=== PATIENT | male | born 1985 | race Caucasian/White ===

== ENCOUNTER 2017-08-10 23:38 | Inpatient (IN) ==
--- NOTE | 2017-08-11 00:13 | Emergency Department Report ---
Abdominal Pain HPI - General Chief Complaint: Abdominal Pain Stated Complaint: abd cramping Time Seen by Provider: 08/10/17 23:42 Source: patient, family, RN notes reviewed, old records reviewed Mode of arrival: ambulatory Limitations: no limitations - History of Present Illness HPI narrative: 31yo man presents to the ER for evaluation of abdominal pain. Pt has been recently dx'ed with colorectal CA. Had his first round of chemo on Fri (5 days ago). He took some miralax on (4 days ago) and had severe pain shortly after. Has cont to have colicky, diffuse, abdominal pain for the last 4 days. Presented today, because he just couldn't take it anymore. MD complaint: abdominal pain Onset (ago): day(s) (4) Consistency: colicky Location: diffuse Severity: severe Severity scale (1-10): 8 Quality: cramping, aching, sharp Radiation: none Migration to: no migration Relieving factors: bowel movement Exacerbating factors: eating, movement Associated symptoms: nausea - Related Data Previous Rx's Medication Instructions Recorded Hydrocodone/APAP 5/325 [[place] 2 tab PO Q4HR PRN #35 tab 08/04/17 5/325] Levofloxacin [Levaquin] 500 mg PO HS #5 tab 08/04/17 Allergies Allergy/AdvReac Type Severity Reaction Status Date / Time No Known Allergies Allergy Verified 08/10/17 23:55 Review of Systems All systems: reviewed and negative except as stated Gastrointestinal: Reports: as per HPI, abdominal pain, nausea, diarrhea. Denies : vomiting, constipation, hematemesis, melena, hematochezia [facility] Patient Stated Medical History Sleep Apnea No Other GI Yes: RECTAL BLEEDING,CONSTIPATION,COLON CA Other Yes: recently infrequent urination Anemia Yes Clinic Medical History (Last Updated 07/24/17 @ 12:20 by Terri Tucker APRN) Colorectal cancer (Acute Medical ~07/2017) Surgical History: -colonoscopy 07/21/2017 Dr. Jones, colorectal cancer, near obstructing. Family History: Family History (Last Updated 07/24/17 @ 12:24 by Terri Tucker APRN) Father Diabetes Mother Diabetes Maternal Grandfather Esophageal cancer Cancer of lip Parkinsons disease Paternal Grandfather Congestive heart failure (CHF) - Social History Smoking status: Never smoker second hand exposure: No Substance use type: does not use Alcohol intake frequency: does not drink Does patient use chewing tobacco?: No Physical Exam - Limitations Limitations: no limitations - General General appearance: alert - Normal Exams: Head:: Normocephalic without trauma Eyes:: Pupils are PERRLA w/ EOMI, No scleral icterus, irritation, or foreign bodies noted ENMT:: No facial trauma, nasal exudates, pharyngeal erythema, or exudates are noted Neck:: Full range of motion, without adenopathy Lymphatic:: No lymphadenopathy Musculoskeletal:: No tenderness, or deformity noted Integumentary:: No rashes, hives, or bruising noted Neurological:: Patient is alert, and oriented Psychiatric:: Patient exhibits, appropriate attention - Chest Chest inspection: Present: normal inspection, symmetric chest wall rise. Absent : tenderness, rash - Respiratory Respiratory exam: Present: normal lung sounds bilaterally. Absent: respiratory distress, wheezes, prolonged expiratory phase - Cardiovascular Cardiovascular exam: Present: regular rate, normal rhythm, normal heart sounds, +S1, +S2. Absent: systolic murmur, diastolic murmur, +S3, +S4 - Abdominal Exam Abdominal exam: Present: soft, distention, tenderness, normal bowel sounds. Absent: guarding, rebound, rigidity, heel tap sign, Hyatt's sign, Rovsing's sign, tenderness at McBurney's Point Abdominal tenderness: Present: diffuse, severe Course - Consultations Consultation #1: Hospitalist: Will admit for further evaluation and treatment. Time: 01:26 Vital Signs Temperature 98.9 F 08/10/17 23:44 Pulse Rate 110 H 08/10/17 23:44 Respiratory Rate 22 08/10/17 23:44 Blood Pressure 119/56 08/10/17 23:44 Pulse Oximetry 99 08/10/17 23:44 Temperature 98.9 F 08/10/17 23:44 Pulse Rate 110 H 08/10/17 23:44 Respiratory Rate 22 08/10/17 23:44 Blood Pressure 119/56 08/10/17 23:44 Pulse Oximetry 99 08/10/17 23:44 Abdominal Pain - MDM Narrative Medical decision making narrative: Pt with anemia, tachycardia, and abdominal pain. He is borderline for admission vs d/c to home. Strong concern for failure as outpt; cannot give NSAID for hollow viscous pain 2/2 colorectal CA and ongoing blood loss. Discussed with hospitalist, who will admit for further eval/treatment. - Differential Diagnosis Differential diagnosis: Likely: abdominal pain, constipation, gastroenteritis, small bowel obstruction - Medical Records Attestation: I reviewed the patient's medical records. - Lab Data Attestation: I reviewed the patient's lab results. Result diagrams: 08/11/17 00:49 08/11/17 00:49 - Radiology Data Attestation: I reviewed the patient's radiology results. KUB: Nonobstructing bowel gas pattern. No free air or fluid under the diaphragm. Large amount of air in the colon. CT (21 Jul 2017): IMPRESSION: 1. Large irregular heterogeneous enhancing rectal mass measuring 6.4 x 6.9 cm resulting in significant stricture of the distal colon/rectum. 2. There is mild to moderate fecal retention. 3. Tiny pulmonary nodule within the anterior right upper lobe. Cannot exclude a focal pulmonary metastasis given the findings in the pelvis. 4. Large left adrenal nodule measuring 2.6 cm. The structure could represent an adrenal metastasis versus an adrenal adenoma. Disposition Clinical Impression: Colorectal cancer Abdominal pain Qualifiers: Abdominal location: generalized Qualified Code(s): R10.84 - Generalized abdominal pain Anemia Qualifiers: Anemia type: other cause Other causes of anemia: chronic disease, neoplastic Qualified Code(s): D63.0 - Anemia in neoplastic disease Disposition: 02 To [facility] Acute Care Print Language: Turkish Condition: Improved Prescriptions: No Action Hydrocodone/APAP 5/325 [[place] 5/325] 2 tab PO Q4HR PRN #35 tab PRN Reason: Pain Levofloxacin [Levaquin] 500 mg PO HS #5 tab Referrals: Larry Jones DO [Family Provider] - Time of Disposition: 01:38 - Seen By: physician
[2017-08-11] MEDS ORDERED: NS 1,000 ML IV ONE ×3 (00:15→04:15)
[2017-08-11] MEDS ORDERED: FentaNYL 100 MCG/2 ML INJECTION IVP ONE (00:26)
[2017-08-11] MEDS: SALINE FLUSH 10ml SYRINGE IVF PRN ×5 (00:50→21:31)
[2017-08-11] MEDS ORDERED: D5-1/2NS 1,000 ML IV SCH (02:12)
[2017-08-11] MEDS ORDERED: ONDANSETRON 4 MG/2 ML INJECTION IVP PRN (02:12)
[2017-08-11] MEDS: MORPHINE SULFATE 4mg INJECTION IVP PRN ×7 (02:44→21:32)
--- NOTE | 2017-08-11 03:27 | History & Physical Report ---
History of Present Illness Date: 08/11/17 Chief complaint: abdominal pain HPI: This is a 31 y/o male who was recently diagnosed with rectal carcinoma. He is discovered to have tumor 10 cm from anal verge and extends 28 cm into the distal colon. The patient underwent his first round of chemotherapy this past Friday. He had his infusport placed last week as well. The pateint has been experiencing intermittent fevers low grade for the past at least week. At the time of his cath placement he was placed on Levaquin for a possible UTI. This past he has had increased abdomen cramping with frequent mostly diarrheal stools. He continues with low temperatures and chills. The patient presents tonight because of the increased pain. In the ED the patient had a AAS that did not demonstrate free air. His labs demonstrated an expected hypokalemia and ongoing anemia. (hg down from 8.2 to 7.5). Because of the worsening pain and ongoing anemia it was recommended to admit the pateint for further treatment. The pateint had a PET scan done recently with results pending. Review of Systems Review of systems: no headache, no ear pain, no sore throat, no dysphagia, no neck/jaw pain, no chest pain, infusaport site is not uncomfortable, no cough, no heart palpitations,diffuse abdomen pain, mostly in lower quadrants. continuous diarrhea as noted above. Significant cramping just prior to having a stool. No blood in stool, nausea with anorexia noted, no skin rashes, no focal motor deficit. 12 point ROS was carefully elicited and was otherwise negative except for outlined above. Past Medical History Patient Stated Medical History Sleep Apnea Yes Gastrointestinal Bleeding Yes Other GI Yes: RECTAL BLEEDING,CONSTIPATION,COLON CA Other Yes: recently infrequent urination Anemia Yes Chemotherapy Yes Clinic Medical History (Last Updated 07/24/17 @ 12:20 by Terri Tucker APRN) Colorectal cancer (Acute Medical ~07/2017) Surgical History: -colonoscopy 07/21/2017 Dr. Jones, colorectal cancer, near obstructing. -infusaport placement last week Family History: Family History (Last Updated 07/24/17 @ 12:24 by Terri Tucker APRN) Father Diabetes Mother Diabetes Maternal Grandfather Esophageal cancer Cancer of lip Parkinsons disease Paternal Grandfather Congestive heart failure (CHF) Family History Updates: mother with diabetes. father with diabetes. 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 [place] Current occupational exposures/hazards: Yes (exposed to exhaust fumes) Does patient use chewing tobacco?: No Current residence: Apartment/Private Home Medications Home Medications Medication Instructions Recorded Confirmed Type Hydrocodone/APAP 5/325 [[place] 2 tab PO Q4HR PRN #35 tab 08/04/17 Rx 5/325] Levofloxacin [Levaquin] 500 mg PO HS #5 tab 08/04/17 Rx Allergies Allergy/AdvReac Type Severity Reaction Status Date / Time No Known Allergies Allergy Verified 08/11/17 02:51 Exam Vital Signs: Temperature 98.6 F 08/11/17 02:50 Pulse Rate 108 H 08/11/17 02:50 Respiratory Rate 18 08/11/17 02:50 Blood Pressure 134/66 08/11/17 02:50 Pulse Oximetry 96 08/11/17 02:50 Telemetry Rhythm: Sinus Rhythm, Sinus Tachycardia Height/Weight/BMI: Height 1.88 m Weight 93.5 kg Body Mass Index 26.4 - Constitutional Present: mild distress, well nourished, cooperative - Routine HEENT Exam Head: Present: normocephalic, atraumatic Eye: Present: PERRL, normal accommodation, conjunctivae pink. Absent: scleral injection ENT: Present: mucous membranes dry - Routine Neck Exam Present: supple, full ROM - Routine Chest/Breast/Axilla Exam Comments: infusaport right chest wall - Routine Respiratory Exam Present: CTA bilaterally - Routine Cardiovascular Exam Present: RRR, no murmur - Routine Abdominal Exam Comments: mod obese, bowel sounds present, mild tender to palpation to lower abdomen. no gaurding, no rebound. nursing assisted with exam - Routine Extremities Exam Present: no edema, non tender, full ROM, pulses intact, normal capillary refill - Routine Back/Spine/Pelvis Exam Back/Spine: Present: full ROM. Absent: CVA tenderness - Routine Skin Exam Present: intact, warm, normal turgor - Routine Neurological Exam Present: oriented X3, CN II-XII intact, normal tone, vision grossly intact, hearing grossly intact, normal speech. Absent: motor deficit - Routine Psychiatric Exam Present: normal affect, normal thought process Results - Labs CBC & Chem 7: 08/11/17 00:49 08/11/17 00:49 Labs: results reviewed and will be discussed below AAS reviewed, films are marked all as supine. But review of films would inform at least one looks upright. Have asked ED to have radiology review and modify as indicated. Assessment and Plan (1) Abdominal pain Current visit: Yes Status: Acute (2) Colorectal cancer Current visit: Yes Status: Acute (3) Anemia Current visit: Yes Status: Acute (4) Hypokalemia Current visit: Yes Status: Acute Assessment and Plan: 1. abdomen pain acute POA: patient undergoing chemo. had constipation and started with miralax. It is potential that miralax has made him have increased gastric motility and resulting in increased abd pain as stool transverses his lower sigmoid. Exam is not c/w acute abdomen. AAS would inform no evidence of free air. Hold miralax. IVF, IV pain meds. repeat labs. consider surgical consult if needed. Always a chance perf but unlikely given not sig elevated WBC and benign nature of physical exam 2. Hypokalemia acute POA: due to gi loss. replace, recheck 3. colorectal carcinoma acute POA: recent dx. recent chemo. folowed by oncology. PET scan pending. 4. febrile illness acute not present on admission: recent fever. ? UTI. will repeat urine if not done yet. on levaquin. Not sure indicatd at this time. will check stool for c dif. unlikely at this stage, but with immune suppression and antibitoic therapy could be a risk. Will further start pro biotic. 5. DVT ppx; SCD, lovenox 6. gastric ppx; PPI DVT Prophylaxis: SCD's, Lovenox GI Prophylaxis: Protonix Resuscitation Status: Full Code - Time spent with patient Time with patient PN: 30 minutes - Physician Narrative Physician: Philly Hurley MD Narrative: Date: 08/11/17 Time: 4 Hospital Course Summary Disclaimer: The visit summary below is not to be considered part of the above Progress Note.
[2017-08-11] MEDS: NS with KCL 20 mEq 1,000 ML IV SCH ×4 (03:33→20:57)
[2017-08-11] MEDS: HYDROCODONE/APAP 5mg/325mg TABLET PO PRN ×2 (03:33→21:31)
--- NOTE | 2017-08-11 07:44 | XRay Report ---
Indication: Abd pain PROCEDURE: XR KUB: Encounter: Initial Comparison: July 17, 2017 Findings: The visualized lung bases are clear. The bowel gas pattern is nonobstructive and nonspecific. Gas is seen in nondilated small and large bowel to the level of the rectum. The colon is mildly prominent diffusely. Moderate stool is seen throughout the colon. The bony structures are grossly unremarkable. Impression: Nonobstructive nonspecific bowel gas pattern. .
[2017-08-11] MEDS: ENOXAPARIN 40 MG/0.4 ML INJECTION SQ SCH (08:40)
[2017-08-11] MEDS: PANTOPRAZOLE 40 MG INJECTION IVP SCH ×2 (08:40→20:59)
[2017-08-11] MEDS: ACETAMINOPHEN 325 MG TABLET PO PRN ×2 (12:32→23:12)
[2017-08-11] MEDS: SIMETHICONE 125 MG CAPSULE PO PRN ×2 (12:33→18:44)
--- NOTE | 2017-08-11 16:58 | Internal Med Progress Note ---
Internal Medicine Subjective Patient seen and examined in his room. Family at the bedside. Questions answered. I did review his chart including his admission to the emergency department as well as his first round of chemotherapy last week. He is 31 years old and recently diagnosed with metastatic colon cancer. He is undergoing adjuvant chemotherapy prior to surgical resection. Alexis indicates that he is been having severe abdominal pain with cramping. He indicates that since his chemotherapy he has passed a significant amount of stool. This is an improvement from before. However, he also indicates that he did see blood in his urine for the first time this morning. There is 3+ blood in his urine through the ER. He still was not able to eat very much at all. Exam Vital Signs: Temperature 98.1 F 08/11/17 15:25 Pulse Rate 109 H 08/11/17 15:25 Respiratory Rate 18 08/11/17 15:25 Blood Pressure 133/69 08/11/17 15:25 Pulse Oximetry 96 08/11/17 15:25 Telemetry Rhythm: Sinus Tachycardia Height/Weight/BMI: Height 6 ft 2 in Weight 94.4 kg Body Mass Index 26.4 - Constitutional Present: moderate distress (he appears to be in obvious discomfort), cooperative - Routine HEENT Exam Head: Present: normocephalic, atraumatic Eye: Present: EOMI, PERRL. Absent: conjunctival icterus, scleral injection, conjunctivae pink ENT: Present: mucous membranes dry, oropharynx clear, nares patent - Routine Neck Exam Present: supple. Absent: lymphadenopathy, thyromegaly - Routine Chest/Breast/Axilla Exam Chest wall: Absent: tenderness Breast: Absent: tenderness Axillae: Absent: lymphadenopathy - Routine Respiratory Exam Present: CTA bilaterally. Absent: accessory muscle use, rales, respiratory distress, rhonchi, wheezes - Routine Cardiovascular Exam Present: RRR. Absent: S3, S4 - Routine Abdominal Exam Present: soft, tenderness, rebound, guarding. Absent: normoactive bowel sounds , non distended - Routine Extremities Exam Absent: clubbing, edema - Routine Skin Exam Present: intact, pallor. Absent: cyanosis, erythema, petechiae, urticaria, jaundice - Routine Neurological Exam Present: alert, oriented X3, CN II-XII intact - Routine Psychiatric Exam Present: normal affect, cooperative, good insight, good judgment, anxious. Absent: depressed Internal Medicine Results - Labs CBC & Chem 7: 08/11/17 06:11 08/11/17 06:11 Labs: Short CBC 08/11/17 Range/Units 06:11 WBC 11.8 H (4.5-11.0) T/MM3 Hgb 6.8 L (13.5-17.5) GM/DL Hct 22.9 L (41-53) % Plt Count 425 H (130-400) T/MM3 BMP 08/11/17 06:11 Sodium 137 Potassium 3.5 L Chloride 102 Carbon Dioxide 25 BUN 10.0 Creatinine 0.4 L Glucose 179 H Calcium 7.8 L Liver Function 08/11/17 Range/Units 06:11 Total Bilirubin 0.50 (0.20-1.30) MG/DL AST 26 (17-59) U/L ALT 42 (21-72) U/L Alkaline Phosphatase 170 H (38-126) U/L Albumin 2.7 L (3.5-5.0) g/dL Urine 08/11/17 Range/Units 09:44 Urine Color Yellow (YELLOW) Urine Clarity Clear Urine pH 5.0 (5.0-8.0) Ur Specific [place] >=1.030 H (1.015-1.025) Urine Protein Negative (NEGATIVE) Urine Glucose (UA) Negative (NEGATIVE) Progress Note-A&P - Time Spent With Patient Total time spent is greater than 50% in coordination of care (as documented) at patient's floor/unit and/or counseling patient: 25 - 35 minutes (1) Abdominal pain Status: Acute Assessment and plan: Surgical consultation with Dr. Russell Current Visit: Yes (2) Anemia Status: Acute Assessment and plan: Transfused 2 units packed red blood cells Current Visit: Yes (3) Colorectal cancer Status: Acute Assessment and plan: He has had one round of adjuvant chemotherapy last week Current Visit: Yes (4) Hypokalemia Status: Acute Current Visit: Yes (5) Weight loss, unintentional Status: Acute Current Visit: Yes Hospital Course Summary Disclaimer: The visit summary below is not to be considered part of the above Progress Note.
--- NOTE | 2017-08-11 18:34 | General Surgery Consult Note ---
Consult date: 08/11/17 Attending Physician: Larry Jones DO Reason for consult: abdominal pain PFSH Patient Stated Medical History Sleep Apnea Yes Gastrointestinal Bleeding Yes Other GI Yes: RECTAL BLEEDING,CONSTIPATION,COLON CA Other Yes: recently infrequent urination Anemia Yes Chemotherapy Yes Clinic Medical History (Last Updated 07/24/17 @ 12:20 by Terri Tucker APRN) Colorectal cancer (Acute Medical ~07/2017) Surgical History: -colonoscopy 07/21/2017 Dr. Jones, colorectal cancer, near obstructing. -Power port placement 08/04/2017 Family History: Family History (Last Updated 07/24/17 @ 12:24 by Terri Tucker APRN) Father Diabetes Mother Diabetes Maternal Grandfather Esophageal cancer Cancer of lip Parkinsons disease Paternal Grandfather Congestive heart failure (CHF) Family History Updates: mother with diabetes. father with diabetes. 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[place] Current occupational exposures/hazards: Yes (exposed to exhaust fumes) Does patient use chewing tobacco?: No Current residence: Apartment/Private Home Medications Home Medications Medication Instructions Recorded Confirmed Type Hydrocodone/APAP 5/325 [[place] 2 tab PO Q4HR PRN #35 tab 08/04/17 Rx 5/325] Levofloxacin [Levaquin] 500 mg PO HS #5 tab 08/04/17 Rx Allergies Allergy/AdvReac Type Severity Reaction Status Date / Time No Known Allergies Allergy Verified 08/11/17 02:51 Review of Systems 10-point ROS: negative except for HPI and the following: - General General: Present: fever, chills, unexplained weight loss (over last couple months, colorectal tumor then discovered), other (weakness, fatigue) - Gastrointestinal Gastrointestinal: Present: diarrhea, blood in stools, other (abd pain) - Genitourinary Additional comments: blood in urine - Psychiatric Psychiatric: Present: anxiety (situational) - Vital Signs Last Vital Signs Temp 98.1 F 08/11/17 15:25 Pulse 109 H 08/11/17 15:25 Resp 18 08/11/17 15:25 BP 133/69 08/11/17 15:25 Pulse Ox 96 03/12/18 15:25 - Laboratory Result Diagrams: 08/11/17 17:22 08/11/17 06:11 General Surgery Results - Results Labs: 08/11/17 17:22 08/11/17 06:11 Hospital Course Summary Disclaimer: The visit summary below is not to be considered part of the above Progress Note.
--- NOTE | 2017-08-11 21:44 | Progress Note ---
DATE OF SERVICE 08/11/2017 FINDINGS Mr. Belcher is a 31-year-old gentleman who is known to my surgical practice. I have recently placed a PowerPort catheter within the patient to facilitate his chemotherapy. The patient unfortunately has been found to have a very widely metastatic rectal cancer. Patient informs me that he has undergone one round of chemotherapy. The patient was accompanied by his parents this evening. Parents and patient state that over the course of the weekend he was experiencing a fair amount of pain. Patient described the pain as being throughout his entire abdomen. Pain was intermittent in nature. Patient states that he did have several large liquid stools over the course of the weekend. Mother states that yesterday he was in severe pain and was "lying in the bathtub screaming." Apparently the patient was in a considerable amount of pain. The patient is fairly stoic and does at times downplay his symptoms. Patient states that this evening he is feeling better. He is having less pain. Mother states, however, that any time the patient moves he is complaining of significant pain. As a result of this severe pain he presented to the emergency room and was subsequently admitted for further care. The patient states he has not had any nausea or vomiting in association with this severe diffuse abdominal pain. PAST MEDICAL HISTORY, PAST SURGICAL HISTORY, MEDICATIONS, ALLERGIES, SOCIAL HISTORY, FAMILY HISTORY, REVIEW OF SYSTEMS Performed by my nurse practitioner, Mendel Tucker APRN. PHYSICAL EXAMINATION Mr. Belcher is a 31-year-old gentleman who does not appear to be in acute distress but he does appear to be uncomfortable in nature. VITAL SIGNS: Temperature 98.1. He did have a low-grade fever of 100.9. The patient was tachycardic with a pulse of 109. Respirations 18, blood pressure 133/69, SAO2 96% on room air. HEENT: Normocephalic. Pupils are equally round and react to light and accommodation. CHEST: Clear to auscultation bilaterally. HEART: Regular rate and rhythm. Normal S1 and S2 without gallops, murmurs or clicks. ABDOMEN: Visualization of the abdomen does reveal it to be somewhat distended in nature. Palpation of the abdomen did reveal diffuse tenderness. The patient did have a fair amount of tenderness with palpation in the right mid and right lower quadrant of his abdomen overlying the cecal region. He did have a component of both voluntary and involuntary guarding. There were no thierry peritoneal signs although the patient was quite tender this evening. EXTREMITIES: Without clubbing, cyanosis, or edema. NEURO: Cranial nerves II-XII grossly intact. Patient is without focal motor or sensory deficits. LABORATORY/RADIOGRAPHIC EVALUATION The patient had a CBC earlier today and his white count was 11.8. Hemoglobin is low at 8.3. He does have a left shift with 91% neutrophils. CMP was obtained and he was found to have a slightly low potassium at 3.5. Alkaline phosphatase is elevated at 170. The patient does have significant known liver metastasis. UA is obtained and found to reveal some red blood cells and occult blood. ASSESSMENT 31-year-old young male with misfortune developing widely metastatic rectal cancer. Patient presents with diffuse abdominal pain most likely a result of near colonic obstruction. PLAN The patient did have a KUB upon admission. Dictated report that there was a nonspecific bowel pattern. One however, can see a fair amount of outline of the ascending colon, transverse colon, and descending colon which does in my opinion appear to be dilated down to the rectum. He does have some small bowel dilatation, most likely a result of incompetent ileocecal valve resulting in some dilatation of the small bowel as well. This evening the patient does not have an acute surgical abdomen. I am quite concerned, however, given the patient's degree of abdominal pain. Will repeat lab work tomorrow consisting of CBC. Will follow with serial abdominal examinations. Will repeat KUB and upright and chest x-ray tomorrow to rule out potential pneumoperitoneum. It is my intuition that his cecum is becoming significantly more dilated as a result of this near-obstructing rectal cancer. It was my hope that his cancer would begin to diminish significantly in its size after initiating chemotherapy and the patient would be able to avoid a diverting colostomy. I am concerned, however, with the patient's clinical presentation and radiographic presentation that he may ultimately require a diverting colostomy. Will reassess tomorrow morning and follow closely. [facility]
[2017-08-12] MEDS: NS FLUSH BAG 500ml IV PRN (01:15)
[2017-08-12] MEDS: SALINE FLUSH 10ml SYRINGE IVF PRN ×2 (01:15→06:18)
[2017-08-12] MEDS: NS with KCL 20 mEq 1,000 ML IV SCH ×3 (01:19→16:54)
[2017-08-12] MEDS: MORPHINE SULFATE 4mg INJECTION IVP PRN ×5 (01:20→14:58)
--- NOTE | 2017-08-12 08:47 | XRay Report ---
Indication: abdominal pain rule out obstruction PROCEDURE: PA view of the chest with supine and upright AP views of the abdomen Encounter: Initial Comparison: KUB from the prior day FINDINGS: The lungs are hypoinflated, but clear. There is no abnormal airspace opacity, pleural effusion or pneumothorax identified. The heart size, pulmonary vasculature and mediastinum are within normal limits. Right IJ port catheter. There is no free air on the upright view. New dilatation of small bowel with differential air-fluid levels. Small bowel is dilated up to 5.7 cm in the left abdomen. There is some colonic gas present. IMPRESSION: 1. No acute cardiopulmonary abnormality. 2. Findings of a small bowel obstruction. .
[2017-08-12] MEDS: ENOXAPARIN 40 MG/0.4 ML INJECTION SQ SCH (09:49)
[2017-08-12] MEDS: PANTOPRAZOLE 40 MG INJECTION IVP SCH ×2 (09:49→22:28)
[2017-08-12] MEDS ORDERED: ERTAPENEM 1 G in NS 50 ML IV SCH (11:00)
--- NOTE | 2017-08-12 12:42 | General Surgery Progress Note ---
Subjective Patient reports: still having pain (distended abdomen, tense and sharp pain), bowel movement (small one this am) - Vital Signs Last Vital Signs Temp 99 F 08/12/17 10:35 Pulse 130 H 08/12/17 09:54 Resp 38 H 08/12/17 09:54 BP 135/75 08/12/17 09:54 Pulse Ox 94 08/12/17 09:54 - Laboratory Result Diagrams: 08/12/17 07:48 08/12/17 07:48 - Radiology Radiology KUB/Abd Addendum: Given the patient's history of a large rectal mass the findings on today's study likely represent decompression of the previously dilated colon through an incompetent ileocecal valve into the small bowel. Findings are more likely due to obstruction at the level of the rectal mass rather than a separate small bowel obstruction. - Abnormal Exam Cardiovascular: other (tachycardic) Abdominal: hypoactive bowel sounds, firm, distended, tender, involuntary guarding - Normal Exam General: awake, alert Respiratory: no labored breathing Psychiatric: normal affect (but seems somewhat anxious, understandably) Assessment and Plan (1) Colon obstruction Current Visit: Yes Status: Acute (2) Colorectal cancer Current Visit: Yes Status: Acute Plan: Plan Robotic diverting colostomy later today. Hospital Course Summary Disclaimer: The visit summary below is not to be considered part of the above Progress Note.
--- NOTE | 2017-08-12 14:46 | Progress Note ---
DATE OF SERVICE 08/12/2017 FINDINGS Alexis this morning was seen earlier on rounds. The patient stated that he was "feeling better." He states he was having less discomfort. He states he did pass some small amount of liquidy stools. PHYSICAL EXAM VITAL SIGNS: Temperature 100.4. The patient continues to become more tachycardic with a pulse of 130. He also has increasing tachypnea with a respiratory rate of 38. Blood pressure is stable at 135/75, SAO2 94% on room air. HEENT: Normocephalic. Pupils are equally round and react to light and accommodation. CHEST: Clear to auscultation bilaterally. HEART: Regular rate and rhythm. Normal S1 and S2 without gallops, murmurs or clicks. ABDOMEN: Although Alexis states that he was having less pain he is still quite tender upon palpation. He does have a component of some voluntary guarding. He also has a slight component of some involuntary guarding. Overall, I do believe he is a little less tender than last evening but continues to have fairly significant abdominal pain upon palpation. No thierry peritoneal signs. LABORATORY/RADIOGRAPHIC EVALUATION The patient had a CBC today and his white count is increasing at 16,000. Hemoglobin is overall stable at 10.4. He does have a left shift with 97% neutrophils. BMP was obtained today. Overall, lab is stable. Radiographically, the patient had a KUB and upright. One can see significant small bowel dilatation today. Findings were read as acute small-bowel obstruction. ASSESSMENT 31-year-old gentleman with known metastatic rectal cancer who presents with probable colonic obstruction secondary to a large rectal mass with associated incompetent ileocecal valve, and radiographic appearance of small-bowel obstruction. The patient is with significant abdominal pain, increasing leukocytosis, increasing tachycardia and tachypnea. PLAN Although Alexis did have a very small liquid bowel movement today, clinically he is becoming worse. Radiographically, he is also becoming worse in nature. Although we tried to avoid surgery so that he could initiate chemotherapy I do feel that it would be best in Alexis's current situation to undergo surgical intervention. Would not recommend trying to remove his cancer with significant metastatic disease but would recommend that we proceed with a robotic-assisted laparoscopic creation of an end colostomy and mucous fistula to divert his fecal stream proximal to his obstructing colon cancer. Patient did have a family member present this morning. I did discuss in detail with them what this procedure would entail and its associated risks which included but was not inclusive of bleeding, infection, as well as potential conversion to open procedure. I informed the patient that he does have a life-threatening condition and he is at significant risk given the fact that he has recently underwent chemotherapy and is in my opinion critically ill. Patient and family understood and wished to proceed as stated above. Following the patient's visit this morning I did contact his oncologist, Dr. Collins, and discussed the case with him as well. Dr. Collins has recommended that we give the patient Neupogen postoperatively. I have also contacted the patient's PCP with the above findings and recommendations. DAVE
--- NOTE | 2017-08-12 15:43 | Anesthesia Preoperative Report ---
Anesthesia Preoperative Record - Date and Time Date: 08/12/17 Preoperative Diagnosis: Abdomen pain Proposed Procedure: Robotic Diverting Colostomy NPO Since Date: 08/11/17 NPO Since Time: 23:55 Allergies/Adverse Reactions: Allergies Allergy/AdvReac Type Severity Reaction Status Date / Time No Known Allergies Allergy Verified 08/11/17 02:51 - Vital Signs Vital Signs: Temperature 98.3 F 08/12/17 15:01 Pulse Rate 122 H 08/12/17 15:01 Respiratory Rate 40 H 08/12/17 15:01 Blood Pressure 137/81 08/12/17 15:01 Pulse Oximetry 95 08/12/17 15:01 Height and Weight: Height 6 ft 2 in Weight 99.7 kg Body Mass Index 26.4 - Medications Inpatient Medications: Current Medications Acetaminophen (Tylenol) 325 - 650 mg PO Q5H PRN PRN Reason: Discomfort Last Admin: 08/11/17 23:12 Dose: 650 mg Hydrocodone Bitart/Acetaminophen ([place] 5/325) 1 tab PO Q6H PRN PRN Reason: Pain Last Admin: 08/11/17 21:31 Dose: 1 tab Enoxaparin Sodium (Lovenox) 40 mg SQ DAILY [facility] Last Admin: 08/12/17 09:49 Dose: 40 mg Potassium Chloride/Sodium Chloride (Ns With Kcl 20 Meq) 1,000 mls @ 150 mls/hr IV .Q6H40M [facility] Last Infusion: 08/12/17 11:32 Dose: 150 mls/hr Ertapenem 1 g/ Sodium Chloride 50 mls @ 100 mls/hr IV DAILY [facility] Last Infusion: 08/12/17 11:32 Dose: Infused Morphine Sulfate (Morphine Sulfate Inj) 2 - 4 mg IVP Q2H PRN PRN Reason: Pain Last Admin: 08/12/17 14:58 Dose: 4 mg Ondansetron HCl (Zofran) 4 mg IVP Q6H PRN PRN Reason: Nausea &/or vomiting Last Admin: 08/12/17 13:51 Dose: 4 mg Pantoprazole Sodium (Protonix Iv) 40 mg IVP BID NEPTALI Last Admin: 08/12/17 09:49 Dose: 40 mg Simethicone (Phazyme) 125 mg PO Q6HR PRN PRN Reason: Gas Last Admin: 08/11/17 18:44 Dose: 125 mg Sodium Chloride (Iv Flush) 10 - 80 ml IVF PRN PRN PRN Reason: Flushing Last Admin: 08/12/17 06:18 Dose: 20 ml Sodium Chloride (Normal Saline) 500 ml IV PRN PRN Last Admin: 08/12/17 01:15 Dose: 500 ml Home Medications: Home Medications Medication Instructions Recorded Confirmed Type Hydrocodone/APAP 5/325 [[place] 2 tab PO Q4HR PRN #35 tab 08/04/17 Rx 5/325] Levofloxacin [Levaquin] 500 mg PO HS #5 tab 08/04/17 Rx Is Patient on Beta [place]?: No - Medical History Respiratory: DENIES: Asthma, Bronchitis, Chronic Obstructive Pulmonary Disease (COPD), Dyspnea, Orthopnea, Pulmonary Embolism, Pneumonia, Upper Respiratory Infection, Pulmonary Edema, Sleep Apnea, Tuberculosis, Other Cardiovascular: DENIES: Abnormal EKG, Angina, Arrhythmia, Congestive Heart Failure, Coronary Artery Disease, Heart Murmur, Hypertension, Hypotension, High Cholesterol, Myocardial Infarction, Rheumatic Fever, Valvular Heart Disease, Other Gastrointestional: Reports: Other (RECTAL BLEEDING,CONSTIPATION,COLON CA) DENIES: Obstructive Bowel, Hepatitis, Cirrhosis, Nausea or Vomiting Present, Gastroesophageal Reflux Disease, Gastrointestinal Bleeding, Hiatal Hernia, Ulcer , Morbid Obesity Neuro/Musculoskeletal: Reports: Back Problems (lower back pain), Headaches, Muscle Weakness Denies: HX.MS.OSAR, Cerebrovascular Accident, Depression, Loss of Consciousness, Neuromuscular Disorder, Paralysis, Paresthesia, Syncope, Seizures , Other Renal/Endocrine: DENIES: Diabetes Mellitus Type 1, Diabetes Mellitus Type 2, Renal Failure, Dialysis, Thyroid Disease, Weight Loss, Weight Gain, Other Other History: Reports: Blood Transfusions, Chemotherapy, Cancer (COLON) DENIES: Anesthesia Reactions, Now, Hemophilia, Malignant Hyperthermia, Sickle Cell Disease, Other - Surgical History GI Surgery/Treatments: Reports: Colonoscopy Anesthesia Reactions: None Hx Family Anesthesia Reaction: No History of Motion Sickness: No - Social History Smoking Status: Never smoker Hx Chewing Tobacco Use: No Second Hand Exposure: No Substance Use Type: does not use Alcohol Intake Frequency: does not drink - Pertinent Findings Laboratory: CBC and BMP 08/12/17 07:48 08/12/17 07:48 BMP 08/12/17 07:48 Sodium 135 Potassium 4.2 D Chloride 102 Carbon Dioxide 22 BUN 10.0 Creatinine 0.5 L Glucose 214 H Calcium 8.2 L Liver Function 08/12/17 Range/Units 07:48 Albumin 2.6 L (3.5-5.0) g/dL Urine 08/12/17 Range/Units 09:12 Urine Color [place] (YELLOW) Urine Clarity Sl cloudy Urine pH 5.0 (5.0-8.0) Ur Specific [place] >=1.030 H (1.015-1.025) Urine Protein 1+ A (NEGATIVE) Urine Glucose (UA) Negative (NEGATIVE) EKG: Sinus Tachycardia - Physical Exam Respiratory Exam: Present: lungs clear, bilateral breath sounds equal Cardiovascular Exam: Present: regular rate and rhythm, no murmur - Airway Assessment Mallampati Score: I TMD: 3 Fingerbreadths Neck Extension: good Overall Assessment: no airway concerns - ASA ASA Score: 3 - Plan Anesthesia: General Inhalation Gases - Discussion Discussion: Discussed risks/options/alternatives of anesthesia and questions answered. Patient consents. Nursing pain assessment noted. Present for Discussion: parent Attestation Statement: Prior to the delivery of any anesthetic medication, I examined the patient, developed the plan, obtained the patient's consent and discussed the risk and benefits of the procedure with the patient/guardian. - Additional Information Seen by Anesthesia: Yes
[2017-08-12] MEDS ORDERED: FentaNYL 250 MCG/5 ML INJECTION ONE (15:54)
[2017-08-12] MEDS ORDERED: LIDOCAINE 2% (100mg/5mL) 5ml PF SDV ONE (15:55)
[2017-08-12] MEDS ORDERED: PROPOFOL 20 ML ONE (15:55)
[2017-08-12] MEDS ORDERED: ROCURONIUM 50 MG/5 ML INJECTION IVP ONE ×2 (15:55→18:34)
[2017-08-12] MEDS ORDERED: KETAMINE 500 MG/10 ML INJECTION ONE (15:55)
[2017-08-12] MEDS ORDERED: ESMOLOL 100 MG/10 ML INJECTION ONE (15:56)
[2017-08-12] MEDS ORDERED: MIDAZOLAM 2mg/2ml INJECTION IVP ONE (16:02)
[2017-08-12] MEDS: NS 1,000 ML IV SCH ×2 (16:06→18:56)
[2017-08-12] MEDS: LR 1,000 ML IV SCH ×2 (16:35→17:47)
[2017-08-12] MEDS ORDERED: BUPIVACAINE 0.25%/EPI 1:200,000 30ml SDV ONE (16:44)
[2017-08-12] MEDS ORDERED: LIDOCAINE VISCOUS 2% ORAL LIQUID 15ml ONE (17:24)
[2017-08-12] MEDS ORDERED: BUPIVACAINE 0.25%/EPI 1:200,000 30ml SDV SQ ONE (18:29)
[2017-08-12] MEDS ORDERED: SALINE FLUSH 10ml SYRINGE ONE (18:48)
[2017-08-12] MEDS ORDERED: SUGAMMADEX 200mg/2ml INJECTION IVP ONE (19:01)
[2017-08-12] MEDS ORDERED: HYDROMORPHONE 2 MG/ML INJECTION IVP PRN (19:48)
[2017-08-12] MEDS ORDERED: ONDANSETRON 4 MG/2 ML INJECTION IVP PRN (19:48)
--- NOTE | 2017-08-12 19:51 | Anesthesia Postoperative Note ---
- Date and Time Date: 08/12/17 Time: 19:49 - Status Patient Participated in Evaluation: Patient Participated in Person Vital Signs: Temperature 98.4 F 08/12/17 15:45 Pulse Rate 124 H 08/12/17 15:46 Respiratory Rate 12 08/12/17 15:45 Blood Pressure 135/63 08/12/17 15:45 Pulse Oximetry 94 08/12/17 15:45 Respiratory Function: Airway Patent, Regular Respirations Cardiovascular Function: Regular Pulse EKG: Sinus Tachycardia Mental Status: Alert and Oriented Pain Intensity: 0 Hydration: IV Infusing Complications During Recover: None Apparent Post Anesthesia Care Notes: Pt in PACU. Denies pain. Febrile 100.7. Dr Russell aware. Probable cause from abcess vs liver mets. - Follow-Up Instructions Instructions: Per Surgeon
--- NOTE | 2017-08-12 19:58 | General Surgery Procedure Note ---
Date of Procedure: 08/12/17 Surgeon: Yvonne Fabric Worker: Mendel Mallory APRN Postoperative Diagnosis: Obstructing rectal cancer with peritonitis Procedure: Exploratory laparotomy with end colostomy and mucous fistula. Estimated Blood Loss: See Anesthesia Record. Pathology: none sent
[2017-08-12] MEDS ORDERED: FLUCONAZOLE PB 200 MG/100 ML BAG IV SCH (20:28)
[2017-08-12] MEDS ORDERED: NS 1,000 ML IV SCH (20:28)
[2017-08-12] MEDS: PIPERACILLIN/TAZOBACTAM 3.375 GM in NS 100 ML IV SCH (21:22)
[2017-08-12] MEDS: MORPHINE PCA 30 MG/30 ML SYRINGE IV PRN (22:12)
[2017-08-12] MEDS: HYDROMORPHONE 2 MG/ML INJECTION IVP PRN (22:27)
[2017-08-12] MEDS: TBO-FILGRASTIM 480mcg/0.8ml INJECTION SQ SCH (22:28)
[2017-08-13] MEDS: D5-1/2NS with KCL 20mEq 1,000 ML IV SCH ×4 (00:10→20:00)
[2017-08-13] MEDS: PIPERACILLIN/TAZOBACTAM 3.375 GM in NS 100 ML IV SCH (02:22)
[2017-08-13] MEDS: HYDROMORPHONE 2 MG/ML INJECTION IVP PRN ×3 (03:41→12:07)
[2017-08-13] MEDS ORDERED: FLUCONAZOLE PB 200 MG/100 ML BAG IV SCH (08:00)
[2017-08-13] MEDS: PIPERACILLIN/TAZOBACTAM 3.375 GM in NS 50 ML IV SCH ×3 (08:07→20:49)
[2017-08-13] MEDS: PANTOPRAZOLE 40 MG INJECTION IVP SCH ×2 (08:07→20:49)
[2017-08-13] MEDS: ENOXAPARIN 40 MG/0.4 ML INJECTION SQ SCH (08:08)
--- NOTE | 2017-08-13 08:56 | Infectious Disease Consult ---
Infectious Disease Consult Date of Consultation: 08/13/17 Requesting Physician: Gabriel Russell Reason for Consultation: sepsis History of Present Illness: Mr. Belcher is a 31 y/o man with a h/o recently diagnosed rectal cancer and was started on chemo last Friday. He's been having some fevers and chills for several days. He was started on levaquin last week for presumed UTI. He denies any dysuria to me but had decreased urine output. He's been having loose waterry stools. He started having abdominal pain last that became quite severe. He finally presented to the ER on 08/11 and was admitted. He had fever up to 102. He has had tachycardia since admission, and he's had leukocytosis. Abdominal X-rays showed dilated colon, but no evidence of free air. His mother is present and helps provide the history. He didn't appear to have an acute abdomen on admission, however, by yesterday, Dr. Russell recommended taking him to surgery for colostomy placement. The patient's mother reports that in surgery, it was discovered that the patient had perforated his colon and had peritonitis. A wound culture was obtained labeled peritoneum, which has NOS on stain but there is early growth on the culture. He was started on Zosyn and fluconazole last night. I've been asked to help with antibiotics. He reports that currently, his pain is fairly well-controlled. Medications Home Medications Medication Instructions Recorded Confirmed Type Hydrocodone/APAP 5/325 [[employer] 2 tab PO Q4HR PRN #35 tab 08/04/17 Rx 5/325] Levofloxacin [Levaquin] 500 mg PO HS #5 tab 08/04/17 Rx Allergies Allergy/AdvReac Type Severity Reaction Status Date / Time No Known Allergies Allergy Verified 08/11/17 02:51 [facility] Patient Stated Medical History Cerebrovascular Accident No Paralysis No Seizures No Syncope No Angina No Cardiac Arrhythmia No Congestive Heart Failure No Coronary Artery Disease No Heart Murmur No Hypertension No Hypotension No Myocardial Infarction No Rheumatic Fever No Valvular Heart Disease No Other Cardiology No Asthma No Bronchitis No Chronic Obstructive Pulmonary No Disease (COPD) Pneumonia No Pulmonary Edema No Pulmonary Embolism No Sleep Apnea No Tuberculosis No Other Respiratory No Diabetes Mellitus Type 1 No Diabetes Mellitus Type 2 No Cirrhosis No Gastroesophageal Reflux No Disease Gastrointestinal Bleeding No Hepatitis No Hiatal Hernia No Obstructive Bowel No Ulcer No Other GI Yes: RECTAL BLEEDING,CONSTIPATION,COLON CA Other Yes: recently infrequent urination Anemia Yes Osteoarthritis No Other Musculoskeletal No Anesthesia Reactions No Blood Transfusions Yes Chemotherapy Yes Malignant Hyperthermia No Other No Depression No Now No Clinic Medical History (Last Updated 07/24/17 @ 12:20 by Terri Tucker APRN) Colorectal cancer (Acute Medical ~07/2017) Surgical History: -colonoscopy 07/21/2017 Dr. Jones, colorectal cancer, near obstructing. -Power port placement 08/04/2017. Exploratory laparotomy with end colostomy and mucous fistula 08/12/17 Family History: Family History (Last Updated 07/24/17 @ 12:24 by Terri Tucker APRN) Father Diabetes Mother Diabetes Maternal Grandfather Esophageal cancer Cancer of lip Parkinsons disease Paternal Grandfather Congestive heart failure (CHF) Family History Updates: mother with diabetes. father with diabetes. 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 Absent: cough - Gastrointestinal Gastrointestinal: Present: abdominal pain, diarrhea. Absent: nausea, vomiting - Genitourinary Genitourinary: Absent: dysuria - Neurological Neurological: Absent: headache(s) Exam Vital Signs: Temperature 97.8 F 08/12/17 22:45 Pulse Rate 132 H 08/13/17 05:30 Respiratory Rate 33 H 08/13/17 06:51 Blood Pressure 134/76 08/13/17 05:30 Pulse Oximetry 98 08/13/17 05:30 Height/Weight/BMI: Height 1.88 m Weight 99.7 kg Body Mass Index 26.4 - Constitutional Present: no acute distress, well nourished, well developed, thin - Routine HEENT Exam Head: Present: normocephalic, atraumatic Eye: Present: EOMI, PERRL ENT: Present: mucous membranes moist, oropharynx clear, dentition normal Comments: NGT in place - Routine Neck Exam Present: supple - Routine Respiratory Exam Present: CTA bilaterally. Absent: accessory muscle use - Routine Cardiovascular Exam Present: RRR - Routine Abdominal Exam Present: soft, non distended, wound (midline abdominal, covered with dressing), drain (2 JPs on R, 1 MANUELITO on L), ostomy Comments: no bowel sounds noted - Routine Extremities Exam Absent: cyanosis, clubbing, edema, joint swelling - Routine Skin Exam Present: intact. Absent: rash Comments: R anterior port accessed, no redness - Routine Neurological Exam Present: alert, oriented X3, CN II-XII intact. Absent: motor deficit - Routine Psychiatric Exam Present: normal affect, normal thought process Results - Labs CBC & Chem 7: 08/13/17 04:17 08/13/17 04:17 Microbiology Results: Microbiology 08/12/17 17:18 Peritoneum Surgical Culture - Preliminary Early growth Impression: Sepsis secondary to GI source Rectal cancer causing obstruction and perforation with peritonitis, s/p exploratory laparatomy, creation of end colostomy 08/12/17, wound culture pending. Metastatic rectal cancer, s/p chemotherapy 08/06/17 Leukocytosis Fever Tachycardia Anemia, microcytic Recommendation: Recommend continuing with Zosyn and fluconazole. I'd recommend dosing the fluconazole at 400mg daily. Await culture results. Recommend treating him for 14 days with antibiotics. I would anticipate that he could probably be changed to oral antibiotics towards the end of this therapy. [place] [facility] [place] but will be available by phone with questions.
[2017-08-13] MEDS ORDERED: FLUCONAZOLE PB 200 MG/100 ML BAG IV ONE (09:15)
--- NOTE | 2017-08-13 10:27 | Operative Note ---
DATE OF SERVICE 08/12/2017 SURGEON Gabriel Russell MD ASSISTANTS MD Mendel Leal APRN PREOPERATIVE DIAGNOSIS Bowel obstruction. POSTOPERATIVE DIAGNOSIS Perforated adenocarcinoma involving rectosigmoid junction with development of multiple intraabdominal abscesses and associated small bowel obstruction. PROCEDURE Diagnostic laparoscopy with conversion to laparotomy, adhesiolysis, drainage of intraabdominal abscesses, creation of end colostomy and mucous fistula. ANESTHESIA General endotracheal. EBL AND FLUIDS Please see chart. BRIEF HISTORY/INDICATIONS Mr. Belcher is a 31-year-old young male who has had the misfortune of developing a very aggressive rectal carcinoma. He recently underwent a colonoscopy by his primary care physician and was found to have a near obstructing lesion involving the rectosigmoid junction. Metastatic workup was undertaken and, unfortunately, the patient was found to have multiple liver metastasis. As a result of the above indications it was recommended the patient undergo chemotherapy and not surgical intervention. The patient has undergone one round of chemotherapy. The patient, over the last several days, has developed severe abdominal pain. He was admitted to the hospital and seen by myself last evening. He was found to have a moderate of tenderness throughout his entire abdomen upon examination. He did not have any radiographic evidence for perforated viscus. Radiographically, radiology did not dictate there was evidence for bowel obstruction although one could see an outline of his colon throughout proximal to his known malignancy. It was my intuition the patient was likely suffering a colonic obstruction as a result of his known near- obstructing lesion. Repeat films were obtained today and he was found to have evidence for small bowel obstruction. Clinically, he appeared worse as well as from a laboratory standpoint. It was recommended to the patient therefore that he undergo surgical intervention. It was my initial thought that perhaps the patient had a complete obstruction of his colon with an incompetent ileocecal valve resulting in the appearance of a small bowel obstruction. As a result of the above indications it was recommended the patient undergo surgical intervention. For completeness please refer to notes included in the patient's chart. FINDINGS Upon laparoscopy one could see a white exudate covering a good portion of the bowel. There was purulent material also noted within the peritoneal cavity. I elected therefore to proceed with an open laparotomy. Upon exploration the patient was found to have numerous large hepatic metastasis. There was hepatic metastasis involving the left lobe of the liver that was likely 6-7 cm in diameter. Small bowel was massively dilated. No obvious transition zone was noted within the small bowel. The bowel itself was quite edematous. One could feel a few implants within the mesentery as the small bowel was being run consistent with that of metastatic disease. Small bowel contents were advanced back towards the stomach and the small bowel was decompressed. Gallbladder was without noted abnormalities. The colon was palpated throughout and was without palpable abnormalities. As one approached into the pelvis, a large abscess cavity was encountered. The purulent material was quite malodorous in nature. Anaerobic and aerobic bacterial cultures were obtained. Upon palpation deep within the pelvis, one could feel a large fixated mass consistent with his known malignancy. Near the rectosigmoid junction one could see what appeared to be that of a small perforation where the malignancy had a eroded through the bowel wall, resulting in perforation and abscess formation. This large mass was unable to be resected distally. It was elected to proceed with creation of a diverting end colostomy and mucous fistula. This was completed without incident. DESCRIPTION OF PROCEDURE After informed consent was obtained, the patient was brought to the operative suite and placed on the table in a supine fashion. The abdomen was then prepped and draped in sterile fashion. Formal time-out was then completed. 0.25% Marcaine with epinephrine was injected just beneath the left costal margin. A 4-5 mm incision was then made through the area of analgesia within the left subcostal region. Veress needle was then introduced into the incision into the peritoneal cavity. Pneumoperitoneum was established to a patient pressure of 15 mmHg utilizing carbon dioxide. Next, additional 0.25% Marcaine with epinephrine was injected cephalad and laterally to the umbilicus. A 2 cm incision was then made overlying the area of analgesia. A 12-mm camera port was then advanced through the abdominal wall directly into the peritoneal cavity. A da Clint laparoscope was placed within the port as the port was being advanced through the fascial layers and into the peritoneal cavity. One could see the port as it entered into the abdominal cavity. Trocar portion of the camera port was then removed. Laparoscope was then inserted into the camera port. Abdominal cavity was explored via the laparoscope. As stated above, one could see exudative-like material covering a good portion of the omentum, small bowel and colon. There appeared to be thierry purulent material within the peritoneal cavity. Therefore it was elected to proceed with a formal laparotomy. Port and camera were removed. A standard midline incision was then made from just above the pubic symphysis up to and into the epigastric region. Underlying subcutaneous tissues, fascia and peritoneum was then opened to the extent of the incision. There was a considerable amount of ascitic transudate/purulent material within the peritoneal cavity. This was then suctioned. A formal exploration was then undertaken. The small bowel was significantly dilated proximally. Anesthesia had placed an OG, but the gastric tube was not able to be palpated within the stomach. I had Anesthesia remove the OG and replace it with an NG tube. One could then feel the gastric tube within the gastric lumen. The stomach was also initially found be quite dilated but was subsequently aspirated and decompressed. Stomach was without visible or palpable abnormalities. Liver was palpated and, as stated above, there were several large hepatic metastases present. Largest hepatic metastasis appeared to be involving the left lobe of the liver and was perhaps on the order of about 7-8 cm in greatest diameter. Next, the small bowel which was significantly dilated was decompressed by advancing its contents in a retrograde fashion back into the stomach. Eventually the entire small bowel was able to be decompressed in this fashion. As stated above, the small bowel was run from the ligament of Treitz to the terminal ileum. There were a few mesenteric metastatic implants that one could see along the small bowel mesentery. No palpable masses, however, were noted within the small bowel lumen. Initially the cecum was located more within the right upper quadrant. The terminal ileum was somewhat adhered along the right lateral abdominal wall. These adhesions were taken down and the cecum was returned back to its more normal location in the right lower quadrant. Cecum was carefully inspected. There was some white exudate-like material overlying the cecum. There was, however, no evidence for necrosis of the cecum, nor evidence for a cecal perforation. The colon was then carefully ran and visualized and palpated from the cecal region up the ascending colon, transverse:, splenic flexure region and down the descending colon region. No visible or palpable abnormalities were noted. The omentum was without evidence for omental caking/implants. Attention was then focused into the pelvic region. The sigmoid colon had "looped upon itself" and was somewhat fixated into the pelvic region. Adhesions were present and began to be taken down. One then entered a large abscess cavity that was quite malodorous in nature. Purulent material was suctioned and anaerobic and aerobic cultures were obtained. The sigmoid colon was able be freed up from the pelvis and brought forth up into the incision. A hand was then placed within the pelvic region. One could appreciate a hard fixated mass involving the rectosigmoid junction extending below the peritoneal reflection. Irrigation was performed and attention was focused down towards the rectosigmoid junction. Out laterally one could see what appeared to be that of a small perforation at the rectosigmoid junction where the tumor had eroded completely through the bowel wall. This area was irrigated. Next, after a complete formal abdominal exam exploration had been undertaken, attention was then focused towards creation of a diverting colostomy and mucous fistula. The tumor itself was not resectable within the pelvis and the patient , as stated above, had widely metastatic disease. A point perhaps 15-20 cm above the rectosigmoid junction was obtained upon the mid to distal descending colon region. A GI-75 stapler was placed across this location and fired. The white line of Toldt along the left pericolic gutter was incised and the left colon was reflected medially. The proximal transected end of the staple line could be brought forth down into the pelvis without undue tension. The resection line was formed at this location in the remote chance that the patient would have a good outcome and could perhaps undergo resection of his tumor at a later date with creation of a coloproctostomy. The pericolonic fat surrounding both staple lines was then clear. The mesentery between these two staple lines was then divided towards its origin about 4-5 cm. Dissection was * *_not?_ carried down to the root of the mesentery. There was enough length that both limbs could be brought forth up through the anterior abdominal wall without difficulty. Next, attention was then focused towards creation of a colostomy and mucous fistula. Two Reta clamps were placed upon the fascia on the left side of the incision and retracted medially. An [facility] clamp was then placed about midway between the left anterior iliac spine and the umbilicus. [facility] clamp was then placed at this location and retracted anteriorly. A 3-4 cm circular incision was then made just beneath the Reta clamps. The deep subcutaneous tissues were then divided with electrocautery down to the underlying enveloping fascia. A small cruciate incision was then made upon the anterior rectus sheath. One could see the longitudinal fibers of the rectus muscle. A hemostat was then advanced through the rectal muscle in its midportion and gently spread. Hemostat was then advanced through the posterior rectus sheath, peritoneum and into the peritoneal cavity. Two to three fingers were then placed through the fascial opening. Both the proximal and distal staple line from the descending colon was then grasped and was able to be brought up through the incision. Additional more length was obtained upon the end colostomy/proximal staple line. This portion of the bowel was brought forth perhaps 6-7 cm beyond the skin level. The mucous fistula/distal staple line was brought forth past the skin level by a centimeter or two. Both limbs of bowel were then secured to the peritoneum by placing a few single interrupted sutures of 3-0 Vicryl adjacent to the colostomy site. This was obtained by obtaining a seromuscular purchase of the colon followed by a purchase of the peritoneum and posterior rectus sheath. Next, I elected to place three 19-Ukrainian drains. Two drains were allowed to exit through the right lateral abdominal wall. One drain was allowed to exit through the left upper quadrant. Drains were placed within the left upper quadrant, left lower quadrant as well as within the pelvis, the right lower quadrant and subhepatic space. Instrument, sponge and needle counts were performed and found to be correct. Attention was directed towards closure. The fascia was closed in a running fashion with #1 PDS. Skin was then reapproximated with brit about every 2 cm. Given the gross contamination, I elected not to perform a skintight closure. Before the skin was closed, Betadine solution was placed upon the skin incision and subcutaneous tissue. _?_ strips were cut and placed between each staple to "wick" the midline incision. Next, attention was directed towards performing the colostomy and mucous fistula. An [facility] clamp was placed upon the proximal portion of the descending colon. [facility] clamp was perhaps placed 4-5 cm proximal to the staple line. Colon was then transected proximal to the [facility] clamp. The colon was then imbricated to the skin edge at the colostomy site within the left lower quadrant at the 12 o'clock , 9 o'clock and 3 o'clock position. This was performed by first obtaining a full thickness of the transected end of the colon followed by a seromuscular purchase of the colon 3-4 cm proximal, followed by a small subcuticular purchase of the skin. Next, the distal staple line was then brought forth up into the colostomy site and a portion of the staple line was transected to create the mucous fistula. One could see into the colonic lumen. The cephalad aspect of the opening of the mucous fistula was imbricated to the 6 o'clock position of the colostomy by placing several interrupted sutures of 3-0 Vicryl in a full-thickness fashion through the proximal end colostomy followed by a full-thickness purchase of the mucous fistula portion of the distal staple line. Perhaps 2 cm of the proximal and distal colon was imbricated at the 6 o' clock position. Next, the caudad portion of the mucous fistula was imbricated to the skin edge by placing several simple interrupted sutures. First, a full purchase of the transected end of the mucous fistula was obtained followed by a small subcuticular purchase of the adjacent colon. This resulted in the creation of the mucous fistula along the caudad aspect of the end colostomy. The end colostomy portion was further imbricated by placing a few additional single interrupted sutures of 3-0 Vicryl. First, a full thickness of the of the end colostomy portion of colon was obtained followed by additional subcuticular purchase of the adjacent skin. This resulted in creation of an everted end colostomy in conjunction with a mucous fistula along the caudad aspect of the colostomy as stated above. Next, a colostomy appliance was then placed overlying the newly created end colostomy and mucous fistula. The patient was subsequently wakened from his anesthetic and sent back to the ICU once deemed in stable condition. DAVE
--- NOTE | 2017-08-13 17:07 | General Surgery Progress Note ---
Subjective Narrative: Patient was seen early this morning, states he actually was not having much pain while at rest but did notice an increase in pain with activity and ambulation. Most of the time he is declining pain medication. He states he's "dying of thirst" and would love to have some tea. He does have an NG tube in and sips of tea would just come out the NG other should not be a problem with this. Been tachycardic in the 130s and 140s. Urine has cleared up compared to yesterday. - Vital Signs Last Vital Signs Temp 96.9 F 08/13/17 15:00 Pulse 113 H 08/13/17 16:00 Resp 35 H 08/13/17 15:00 BP 125/66 08/13/17 15:00 Pulse Ox 99 08/13/17 15:00 - Laboratory Result Diagrams: 08/13/17 04:17 08/13/17 04:17 Laboratory Tests 08/12/17 08/13/17 07:48 04:17 INR 1.59 H 1.53 H - Microbiogy Microbiology 08/12/17 17:18 Peritoneum Gram Stain - Final 08/12/17 17:18 Peritoneum Surgical Culture - Preliminary Early growth - Normal Exam General: awake, alert, oriented Cardiovascular: regular rate (tachycardic) Respiratory: clear bilaterally, no labored breathing Abdominal: soft, appropriately tender, incision(s) (dressings intact and not removed today. There are Betadine soaked "partha" between the brit.) Assessment and Plan (1) Perforated sigmoid colon Current Visit: Yes Status: Acute (2) Status post colostomy Current Visit: Yes Status: Acute (3) Colon obstruction Current Visit: Yes Status: Acute (4) Colorectal cancer Current Visit: Yes Status: Acute Plan: Encouraged him to utilize a RIB BENDER and supplemental pain medication on an as- needed basis. He may have sips of tea, keep NG to low intermittent suction. Once there is flatus in the colostomy bag will start advancing diet. Appreciate input from Dr. Marcum. Continue daily labs. Neupogen daily per Dr. Collins [facility] Course Summary Disclaimer: The visit summary below is not to be considered part of the above Progress Note.
--- NOTE | 2017-08-13 17:12 | Internal Med Progress Note ---
Internal Medicine Subjective Patient was seen and examined in the ICU. Family at the bedside. Surgery notes, radiographs, and labs all reviewed. Questions answered. The patient underwent diverting colostomy yesterday and appears to be improved. He still has significant abdominal pain especially with movement. Urine output is good, blood pressure is good, and his heart rate is coming down. He has an NG tube in place and states it is very thirsty. Exam Vital Signs: Temperature 96.9 F 08/13/17 15:00 Pulse Rate 113 H 08/13/17 16:00 Respiratory Rate 35 H 08/13/17 15:00 Blood Pressure 125/66 08/13/17 15:00 Pulse Oximetry 99 08/13/17 15:00 Telemetry Rhythm: Sinus Tachycardia Height/Weight/BMI: Height 6 ft 2 in Weight 92.5 kg Body Mass Index 26.4 - Constitutional Present: mild distress, cooperative - Routine HEENT Exam Head: Present: normocephalic, atraumatic Eye: Present: EOMI. Absent: conjunctival icterus, scleral injection, conjunctivae pink ENT: Present: mucous membranes dry, nares patent - Routine Neck Exam Present: supple. Absent: JVD, lymphadenopathy, thyromegaly - Routine Chest/Breast/Axilla Exam Chest wall: Absent: tenderness - Routine Respiratory Exam Present: CTA bilaterally. Absent: accessory muscle use, dyspnea, rales, rhonchi , wheezes - Routine Cardiovascular Exam Present: no murmur, tachycardia. Absent: S3, S4 - Routine Abdominal Exam Present: tenderness, guarding Comments: Faint bowel sounds are present - Routine Extremities Exam Absent: cyanosis, clubbing, edema - Routine Skin Exam Present: intact, pallor. Absent: cyanosis, mottling, petechiae, urticaria, jaundice - Routine Neurological Exam Present: alert, oriented X3, CN II-XII intact - Routine Psychiatric Exam Present: normal affect, normal thought process, cooperative, good insight, good judgment. Absent: depressed, anxious Internal Medicine Results - Labs CBC & Chem 7: 08/13/17 04:17 08/13/17 04:17 Labs: Short CBC 08/13/17 Range/Units 04:17 WBC 13.2 H (4.5-11.0) T/MM3 Hgb 10.1 L (13.5-17.5) GM/DL Hct 32.9 L (41-53) % Plt Count 602 H (130-400) T/MM3 [facility] 08/13/17 04:17 Sodium 137 Potassium 4.2 Chloride 105 Carbon Dioxide 22 BUN 17.0 D Creatinine 0.8 D Glucose 238 H Calcium 7.5 L D Progress Note-A&P - Time Spent With Patient Total time spent is greater than 50% in coordination of care (as documented) at patient's floor/unit and/or counseling patient: greater than 35 minutes (1) Abdominal pain Status: Acute Assessment and plan: Surgical consultation with Dr. Russell Current Visit: Yes (2) Anemia Status: Acute Assessment and plan: Transfused 2 units packed red blood cells Current Visit: Yes (3) Colorectal cancer Status: Acute Assessment and plan: He has had one round of adjuvant chemotherapy last week Current Visit: Yes (4) Hypokalemia Status: Acute Current Visit: Yes (5) Weight loss, unintentional Status: Acute Current Visit: Yes - Assessment and Plan Alexis has metastatic colon cancer resulting in a bowel obstruction secondary to noncompliant ileocecal valve. He underwent diverting colostomy yesterday. We will probably need to start IV nutrition tomorrow so I will check his prealbumin in the morning. His pain control appears to be fairly good. He was also started on Neupogen due to receiving his first round of chemotherapy last week. Hospital Course Summary Disclaimer: The visit summary below is not to be considered part of the above Progress Note.
[2017-08-13] MEDS: MORPHINE PCA 30 MG/30 ML SYRINGE IV PRN (18:40)
--- NOTE | 2017-08-13 19:49 | Progress Note ---
DATE OF SERVICE 08/13/2017 FINDINGS Alexis was seen this evening on rounds. He states that overall he is feeling better than yesterday. His abdominal pain has "changed." He is not having pain when he lays still. He is not having severe "gas pains" as he had been previously experiencing. PHYSICAL EXAM VITAL SIGNS: Patient has been tachycardic as expected with his degree of peritoneal contamination. He remains tachypneic in nature. He is normotensive and afebrile. For completeness please refer to EMR if needed. CHEST: Clear to auscultation bilaterally. HEART: Regular rate and rhythm. Normal S1 and S2 without gallops, murmurs or clicks. ABDOMEN: There is some minimal serosanguineous fluid within the ostomy bag. Colostomy within the left lower quadrant is pink and viable in its appearance. There is serosanguineous drainage noted within his Erik-Conrad drains. Palpation of the abdomen reveals some incisional tenderness but is without thierry peritoneal signs or evidence for involuntary guarding. LABORATORY/RADIOGRAPHIC EVALUATION The patient's white count today was 13,000. Hemoglobin is 10.0. He does have a left shift with 19% bands. BMP was obtained and reviewed and found to be essentially within normal limits. Glucose was slightly elevated at 238. I have reviewed Infectious Disease note from earlier today. I appreciate their input. ASSESSMENT 31-year-old gentleman with metastatic perforated rectal cancer, status post exploratory laparotomy with drainage of intraabdominal abscess and creation of end colostomy with mucous fistula. Patient currently this evening doing better than expected. PLAN Continue with current care. Will continue to follow the patient closely. I still feel that overall the patient's prognosis is still guarded given his immunosuppression and degree of peritoneal contamination in conjunction with his significant metastatic disease. [facility]ITALAlysha
[2017-08-13] MEDS ORDERED: FLUCONAZOLE PB 100 MG/50 ML BAG IV SCH (20:00)
[2017-08-13] MEDS: TBO-FILGRASTIM 480mcg/0.8ml INJECTION SQ SCH (20:50)
[2017-08-14] MEDS: PIPERACILLIN/TAZOBACTAM 3.375 GM in NS 50 ML IV SCH ×4 (02:34→20:48)
[2017-08-14] MEDS: D5-1/2NS with KCL 20mEq 1,000 ML IV SCH ×3 (03:11→09:34)
--- NOTE | 2017-08-14 07:26 | General Surgery Progress Note ---
Subjective Narrative: He is more awake and recognizing more pain today, stating rolling over and activity are very painful. He was nauseated yesterday and it was discovered that the NG suction was not working, once the suction started working the nausea went away. Denies chest pain, SOA, although Oxygen at 1L by NC. No flatus in colostomy bag. Lifted the dressings a little, they are not bloody, MANUELITO's with nearly clear serosanguineous fluid. Mother states she thinks he has become pale in color since yesterday. Tachycardia down to low 100's now. - Vital Signs Last Vital Signs Temp 98.7 F 08/13/17 20:00 Pulse 115 H 08/14/17 04:00 Resp 26 H 08/14/17 05:50 BP 118/58 08/14/17 03:00 Pulse Ox 94 08/14/17 03:31 - Laboratory Result Diagrams: 08/14/17 04:05 08/14/17 04:05 - Microbiogy Microbiology 08/12/17 17:18 Peritoneum Gram Stain - Final 08/12/17 17:18 Peritoneum Surgical Culture - Preliminary Early growth - Abnormal Exam General: mild distress (2nd to abdominal pain) - Normal Exam General: awake, alert, oriented Cardiovascular: regular rate Respiratory: clear bilaterally, no labored breathing Abdominal: BS normo active x4 (very minimal BS), soft, appropriately tender Psychiatric: normal affect Assessment and Plan (1) Perforated sigmoid colon Current Visit: Yes Status: Acute (2) Status post colostomy Current Visit: Yes Status: Acute (3) Acute blood loss anemia Current Visit: Yes Status: Acute (4) Colon obstruction Current Visit: Yes Status: Acute (5) Colorectal cancer Current Visit: Yes Status: Acute Plan: His is in sims pain today, encouraged more MEDICAL SURGERY NURSE and to ask nursing for additional pain med. HGB dropped to 7.4 (10.1 yesterday) MANUELITO's with serous fluid, dressings without noticeable blood, no bleeding from colostomy or rectum. Transfuse 1 unit and check HGB. Tachycardia from yesterday (130's) now down and running 103-109. Gradual decline in SBP from yesterday 140's to SBP this am 110's. WBC up today 16.9 (13.2 yesterday,) his is on Neupogen, continue Zoxyn and Diflucan per Dr. Marcum. Hospital Course Summary Disclaimer: The visit summary below is not to be considered part of the above Progress Note.
[2017-08-14] MEDS ORDERED: DiphenhydrAMINE 25 MG CAPSULE PO ONE (08:02)
[2017-08-14] MEDS ORDERED: ACETAMINOPHEN 325 MG TABLET PO ONE (08:02)
[2017-08-14] MEDS ORDERED: DIPHENHYDRAMINE 12.5 MG/5 ML ORAL LIQUID PO ONE (09:15)
[2017-08-14] MEDS: ACETAMINOPHEN 650 MG/20.3 ML SOLUTION PO PRN (09:29)
[2017-08-14] MEDS: FLUCONAZOLE PB 400 MG/200 ML BAG IV SCH (09:30)
[2017-08-14] MEDS: ENOXAPARIN 40 MG/0.4 ML INJECTION SQ SCH (09:33)
[2017-08-14] MEDS: PANTOPRAZOLE 40 MG INJECTION IVP SCH ×2 (09:34→20:48)
[2017-08-14] MEDS: SALINE FLUSH 10ml SYRINGE IVF PRN (09:35)
[2017-08-14] MEDS: NS FLUSH BAG 500ml IV PRN (09:36)
[2017-08-14] MEDS ORDERED: TPN - PHARMACY CONSULT MC ONE (13:17)
[2017-08-14] MEDS ORDERED: MULTI TRACE ELEMENTS IV SCH (13:30)
[2017-08-14] MEDS ORDERED: [UNRECOGNIZED DRUG - OTHER] IV SCH (13:30)
[2017-08-14] MEDS ORDERED: MULTI VIT INFUSION IV SCH (13:30)
--- NOTE | 2017-08-14 13:49 | Pharmacy Consult-TPN/PPN ---
Pharmacy Consult-TPN/PPN - Laboratory Information Chemistry Turbidity < 20 (0-20) 08/14/17 04:05 Sodium 134 MEQ/L (134-144) 08/14/17 04:05 Potassium 3.8 MEQ/L (3.6-5) 08/14/17 04:05 Chloride 102 MEQ/L (98-107) 08/14/17 04:05 Carbon Dioxide 26 MEQ/L (22-30) 08/14/17 04:05 Anion Gap 6 MEQ/L (5-15) 08/14/17 04:05 BUN 9.0 MG/DL (9-20) D 08/14/17 04:05 Creatinine 0.6 mg/dL (0.8-1.5) L D 08/14/17 04:05 GFR Calculation 158 08/14/17 04:05 BUN/Creatinine Ratio 15 RATIO (6-26) 08/14/17 04:05 Glucose 143 MG/DL (75-110) H 08/14/17 04:05 Calculated Osmolality 259 MOSM/KG (261-280) L 08/14/17 04:05 Calcium 7.3 MG/DL (8.4-10.2) L 08/14/17 04:05 Phosphorus 1.8 MG/DL (2.5-4.5) L 08/14/17 04:05 Total Bilirubin 0.50 MG/DL (0.20-1.30) 08/11/17 06:11 Icterus Index < 2 (0-7) 08/14/17 04:05 AST 26 U/L (17-59) 08/11/17 06:11 ALT 42 U/L (21-72) 08/11/17 06:11 Alkaline Phosphatase 170 U/L (38-126) H 08/11/17 06:11 Troponin I < 0.012 ng/ml (0-0.12) 08/11/17 00:49 Total Protein 5.9 g/dL (6.3-8.2) L 08/11/17 06:11 Albumin 2.1 g/dL (3.5-5.0) L 08/14/17 04:05 Globulin 3.2 G/DL (2.4-3.6) 08/11/17 06:11 Albumin/Globulin Ratio 0.8 RATIO (1.1-2.2) L 08/11/17 06:11 Prealbumin < 3.0 mg/dL (17.6-36.0) L 08/14/17 04:05 Plasma Lactate 1.8 MMOL/L (0.6-2.2) 08/12/17 07:48 Specimen Hemolysis < 15 (0-25) 08/14/17 04:05 Intake and Output 08/13/17 08/14/17 08/15/17 06:59 06:59 06:59 Intake Total 5318.334 / 5318.334 80399.583 / 61772.583 Output Total 4200 / 4200 92966 / 63285 240 / 240 Balance 1118.334 / 1118.334 -647.417 / -647.417 -240 / -240 Weight 99.7 kg 92.5 kg 95.4 kg Intake: IV 4868.334 / 4868.334 3289.583 / 3289.583 D5-1/2NS with KCL 20mEq 1,000 275 / 275 2889.583 / 2889.583 ml @ 125 mls/hr IV .Q8H [facility] Rx# :[id number] Ertapenem 1 g In Ns 50 ml @ 100 50 / 50 mls/hr IV DAILY [facility] Rx#: [id number] Fluconazole Pb 200 mg In 100 ml 200 / 200 @ 100 mls/hr IV O ONE Rx#: [id number] Lr 1,000 ml @ 50 mls/hr IV . 1141.667 / 1141.667 Q20H [facility] Rx#:[id number] NS with KCL 20 mEq 1,000 ml @ 1367.5 / 1367.5 150 mls/hr IV .Q6H40M [facility] Rx#: [id number] Ns 1,000 ml @ 250 mls/hr IV . 1834.167 / 1834.167 Q4H [facility] Rx#:[id number] Piperacillin/Tazobactam 3.375 200 / 200 gm In Ns 100 ml @ Per Protocol IV Q6H [facility] Rx#:[id number] Piperacillin/Tazobactam 3.375 200 / 200 gm In Ns 50 ml @ 100 mls/hr IV Q6H [facility] Rx#:[id number] Oral 450 / 450 7340 / 7340 Output: Urine Amount (Catheter) 1035 / 1035 1550 / 1550 240 / 240 Urethral 200 / 200 Gastric Drainage 2350 / 2350 9450 / 9450 Left Nare 2350 / 2350 9450 / 9450 Wound Drainage 815 / 815 277 / 277 Abdomen 180 / 180 140 / 140 Lower Abdomen 255 / 255 95 / 95 Right Lower 380 / 380 42 / 42 Other: Urine Appearance Clear Clear Clear Mucous Threads Urethral Cloudy Sediment Urine Color Dark Yellow Dark Yellow [place] Urethral [place] Drain Type Abdomen Bulb [place] Bulb [place] Lower Abdomen Bulb [place] Bulb [place] Right Lower Bulb [place] Bulb [place] # Voids 1 # Bowel Movements 1 # Incontinent Bowel Movements 1 - Consult Information Consult noted by Dr Jones to begin TPN W/lipids for Mr Belcher, who is 31 yo and weighs 95.4kg. Due to nationwide shortage of TPN formulas, we will use a standard PPN formula with 500mls lipids. This will supply 1408 kcal daily. Will add 40meq of KCl to standard formula and continue to monitor. Thank you.
--- NOTE | 2017-08-14 15:00 | Wound Care Progress Note ---
Wound Center Progress Note: Pt seen for wound consultation r/t new colostomy. Seen with Yahaira OLIVER. Pt resting in bed, family at bedside, no complaints of pain. Pt had surgery r/t rectal CA with the creation of a LLQ colostomy. Pt has a 1pc pouching system in place, stoma and peristomal skin not visualized at this time. Pouch has small amount serosanguineous drainage. Educational materials left at bedside r/t colostomy care. Pt had questions regarding pouching systems and how they were applied to abdomen. Education was given regarding: diet, exercise, showering with pouch, gas, odor, different pouching system options, how and where to receive ostomy supplies, how and when to change the pouch/wafer, constipation, diarrhea, what a normal stoma/peristomal skin appearance should be , and possible use of irrigation technique in the future to manage colostomy. Pt states he will review the colostomy material and is willing to have me return for more education Friday and/or Friday.
[2017-08-14] MEDS ORDERED: FAT EMULSION 20% 100 ML BAG IV SCH (16:00)
[2017-08-14] MEDS ORDERED: POTASSIUM PHOSPHATE IV ONE (16:45)
[2017-08-14] MEDS: MORPHINE PCA 30 MG/30 ML SYRINGE IV PRN (16:51)
--- NOTE | 2017-08-14 16:53 | Progress Note ---
DATE OF SERVICE 08/14/2017 FINDINGS Alexis states that he is having less pain today. He states that this morning when they did move him he had some increased pain but this afternoon was feeling significantly better. PHYSICAL EXAM VITAL SIGNS: Afebrile, normotensive. The patient remains slightly tachycardic with a pulse 105. This, however, continues to improve. Normotensive in nature. ABDOMEN: Soft. Minimal incisional tenderness. No evidence for rebound or involuntary guarding. No output noted within colostomy. LABORATORY/RADIOGRAPHIC EVALUATION The patient's hemoglobin has drifted down today as one would somewhat expect. Hemoglobin 7.4. He was given a unit of blood and his hemoglobin is now 8.7. White count is up at 16.9 which likely is a result of his Neupogen injection. He does have 31% bands, again most likely a result of his Neupogen. BMP was obtained found to be without marked abnormalities. ASSESSMENT 31-year-old gentleman with perforated metastatic rectal cancer. Status post exploratory laparotomy with creation of end colostomy and mucous fistula. Patient improving from a clinical standpoint. PLAN Continue with current care. Dr. Jones has ordered hyperalimentation for nutrition. Will otherwise continue with current care. DAVE
[2017-08-14] MEDS: FAT EMULSION 20% 500 ML IV SCH (16:59)
[2017-08-14] MEDS: NS 1,000 ML IV SCH (17:00)
[2017-08-14] MEDS: HYDROMORPHONE 2 MG/ML INJECTION IVP PRN (17:00)
[2017-08-14] MEDS: MULTI-VIT INFUSION 10 ML, MULTI-TRACE ELEMENTS 1 ML, POTASSIUM CHLORIDE INJ 40 MEQ in ... IV SCH (17:03)
--- NOTE | 2017-08-14 17:39 | Pharmacy Consult-TPN/PPN ---
Pharmacy Consult-TPN/PPN - Laboratory Information Chemistry Turbidity < 20 (0-20) 08/14/17 04:05 Sodium 134 MEQ/L (134-144) 08/14/17 04:05 Potassium 3.8 MEQ/L (3.6-5) 08/14/17 04:05 Chloride 102 MEQ/L (98-107) 08/14/17 04:05 Carbon Dioxide 26 MEQ/L (22-30) 08/14/17 04:05 Anion Gap 6 MEQ/L (5-15) 08/14/17 04:05 BUN 9.0 MG/DL (9-20) D 08/14/17 04:05 Creatinine 0.6 mg/dL (0.8-1.5) L D 08/14/17 04:05 GFR Calculation 158 08/14/17 04:05 BUN/Creatinine Ratio 15 RATIO (6-26) 08/14/17 04:05 Glucose 143 MG/DL (75-110) H 08/14/17 04:05 Calculated Osmolality 259 MOSM/KG (261-280) L 08/14/17 04:05 Calcium 7.3 MG/DL (8.4-10.2) L 08/14/17 04:05 Phosphorus 1.8 MG/DL (2.5-4.5) L 08/14/17 04:05 Total Bilirubin 0.50 MG/DL (0.20-1.30) 08/11/17 06:11 Icterus Index < 2 (0-7) 08/14/17 04:05 AST 26 U/L (17-59) 08/11/17 06:11 ALT 42 U/L (21-72) 08/11/17 06:11 Alkaline Phosphatase 170 U/L (38-126) H 08/11/17 06:11 Troponin I < 0.012 ng/ml (0-0.12) 08/11/17 00:49 Total Protein 5.9 g/dL (6.3-8.2) L 08/11/17 06:11 Albumin 2.1 g/dL (3.5-5.0) L 08/14/17 04:05 Globulin 3.2 G/DL (2.4-3.6) 08/11/17 06:11 Albumin/Globulin Ratio 0.8 RATIO (1.1-2.2) L 08/11/17 06:11 Prealbumin < 3.0 mg/dL (17.6-36.0) L 08/14/17 04:05 Plasma Lactate 1.8 MMOL/L (0.6-2.2) 08/12/17 07:48 Specimen Hemolysis < 15 (0-25) 08/14/17 04:05 Intake and Output 08/13/17 08/14/17 08/15/17 06:59 06:59 06:59 Intake Total 5318.334 / 5318.334 53140.416 / 27686.416 1124.999 / 1124.999 Output Total 4200 / 4200 64118 / 19657 315 / 315 Balance 1118.334 / 1118.334 -601.584 / -601.584 809.999 / 809.999 Weight 99.7 kg 92.5 kg 95.4 kg Intake: IV 4868.334 / 4868.334 3335.416 / 3335.416 624.999 / 624.999 D5-1/2NS with KCL 20mEq 1,000 275 / 275 2935.416 / 2935.416 374.999 / 374.999 ml @ 125 mls/hr IV .Q8H [facility] Rx# :[id number] Ertapenem 1 g In Ns 50 ml @ 100 50 / 50 mls/hr IV DAILY [facility] Rx#: [id number] Fluconazole Pb 200 mg In 100 ml 200 / 200 @ 100 mls/hr IV O ONE Rx#: [id number] Fluconazole Pb 400 mg In 200 ml 200 / 200 @ 100 mls/hr IV Q24H [facility] Rx#: [id number] Lr 1,000 ml @ 50 mls/hr IV . 1141.667 / 1141.667 Q20H [facility] Rx#:[id number] NS with KCL 20 mEq 1,000 ml @ 1367.5 / 1367.5 150 mls/hr IV .Q6H40M [facility] Rx#: [id number] Ns 1,000 ml @ 250 mls/hr IV . 1834.167 / 1834.167 Q4H [facility] Rx#:[id number] Piperacillin/Tazobactam 3.375 200 / 200 gm In Ns 100 ml @ Per Protocol IV Q6H [facility] Rx#:[id number] Piperacillin/Tazobactam 3.375 200 / 200 50 / 50 gm In Ns 50 ml @ 100 mls/hr IV Q6H [facility] Rx#:[id number] Oral 450 / 450 7340 / 7340 200 / 200 Intake (Blood Product) Amt 300 / 300 Output: Urine Amount (Catheter) 1035 / 1035 1550 / 1550 240 / 240 Urethral 200 / 200 Gastric Drainage 2350 / 2350 9450 / 9450 Left Nare 2350 / 2350 9450 / 9450 Wound Drainage 815 / 815 277 / 277 75 / 75 Abdomen 180 / 180 140 / 140 20 / 20 Lower Abdomen 255 / 255 95 / 95 40 / 40 Right Lower 380 / 380 42 / 42 15 / 15 Other: Urine Appearance Clear Clear Clear Mucous Threads Urethral Cloudy Sediment Urine Color Dark Yellow Dark Yellow Light Lizett Urethral [place] Drain Type Abdomen Bulb [place] Bulb [place] Lower Abdomen Bulb [place] Bulb [place] Bulb [place] Right Lower Bulb [place] Bulb [place] # Voids 1 # Bowel Movements 1 # Incontinent Bowel Movements 1 - Consult Information Order by Dr Jones to add extra potassium phosphate 40meq to TPN formula. This was added to the first bag. Thank you.
--- NOTE | 2017-08-14 17:51 | Internal Med Progress Note ---
Internal Medicine Subjective Patient was seen and examined in the ICU. Family at the bedside. Patient's answered. Alexis states that he's had considerable amount of pain today that he is able to sit up in bed better and is trying to dangle his feet a little bit more. In review of his labs this morning is pre-albumin is unmeasurable, the albumin is low, his phosphorus is also low. Additionally, his hemoglobin dropped again this morning and he has been transfused 1 unit of packed red blood cells. TPN has been initiated and I will keep a close watch on his electrolytes especially the potassium and phosphorus. This case was discussed with both nursing and pharmacy today Exam Vital Signs: Temperature 98.7 F 08/14/17 12:00 Pulse Rate 105 H 08/14/17 14:30 Respiratory Rate 18 08/14/17 16:51 Blood Pressure 143/72 H 08/14/17 14:30 Pulse Oximetry 96 08/14/17 14:30 Telemetry Rhythm: Sinus Tachycardia Height/Weight/BMI: Height 6 ft 2 in Weight 95.4 kg Body Mass Index 27.0 - Constitutional Present: mild distress, cooperative - Routine HEENT Exam Head: Present: normocephalic, atraumatic Eye: Present: EOMI, PERRL. Absent: conjunctival icterus, scleral injection, conjunctivae pink ENT: Present: oropharynx clear Comments: NG tube in place to intermittent suction - Routine Neck Exam Present: supple. Absent: lymphadenopathy, thyromegaly - Routine Chest/Breast/Axilla Exam Chest wall: Absent: tenderness Axillae: Absent: lymphadenopathy - Routine Respiratory Exam Present: rales (soft basilar rales that clear with cough). Absent: accessory muscle use - Routine Cardiovascular Exam Present: no murmur. Absent: S3, S4 - Routine Abdominal Exam Present: soft, normoactive bowel sounds (diminished bowel sounds but present in the right upper and lower quadrant as well as left upper quadrant), tenderness, guarding, ostomy - Routine Extremities Exam Present: non tender. Absent: cyanosis, clubbing, edema - Routine Skin Exam Present: intact, dry, pallor. Absent: erythema, mottling, petechiae, urticaria , jaundice - Routine Neurological Exam Present: alert, oriented X3, CN II-XII intact - Routine Psychiatric Exam Present: cooperative, good insight, good judgment. Absent: depressed, anxious Internal Medicine Results - Labs CBC & Chem 7: 08/14/17 14:50 08/14/17 04:05 Labs: Short CBC 08/14/17 08/14/17 Range/Units 04:05 14:50 WBC 16.9 H (4.5-11.0) T/MM3 Hgb 7.4 L D 8.7 L D (13.5-17.5) GM/DL Hct 24.7 L D (41-53) % Plt Count 463 H (130-400) T/MM3 BMP 08/14/17 04:05 Sodium 134 Potassium 3.8 Chloride 102 Carbon Dioxide 26 BUN 9.0 D Creatinine 0.6 L D Glucose 143 H Calcium 7.3 L Liver Function 08/14/17 Range/Units 04:05 Albumin 2.1 L (3.5-5.0) g/dL Progress Note-A&P - Time Spent With Patient Total time spent is greater than 50% in coordination of care (as documented) at patient's floor/unit and/or counseling patient: greater than 35 minutes (1) Abdominal pain Status: Acute Assessment and plan: Surgical consultation with Dr. Russell Current Visit: Yes (2) Anemia Status: Acute Assessment and plan: Transfused 1 unit packed red blood cells Current Visit: Yes (3) Colorectal cancer Status: Acute Assessment and plan: He has had one round of adjuvant chemotherapy last week Current Visit: Yes (4) Hypokalemia Status: Acute Current Visit: Yes (5) Weight loss, unintentional Status: Acute Current Visit: Yes (6) Acute blood loss anemia Status: Acute Current Visit: Yes (7) Perforated sigmoid colon Status: Acute Current Visit: Yes (8) Status post colostomy Status: Acute Current Visit: Yes (9) Protein-calorie malnutrition, severe Status: Acute Current Visit: Yes - Assessment and Plan He has adequate pain control at this time. I am hearing improved bowel sounds. He has severe protein calorie malnutrition and I'm starting him on TPN with careful attention to his electrolytes watching for any evidence of refeeding syndrome Hospital Course Summary Disclaimer: The visit summary below is not to be considered part of the above Progress Note.
[2017-08-14] MEDS: TBO-FILGRASTIM 480mcg/0.8ml INJECTION SQ SCH (20:53)
[2017-08-15] MEDS: HYDROMORPHONE 2 MG/ML INJECTION IVP PRN ×4 (00:05→23:09)
[2017-08-15] MEDS: PIPERACILLIN/TAZOBACTAM 3.375 GM in NS 50 ML IV SCH ×4 (02:06→20:31)
[2017-08-15] MEDS: ENOXAPARIN 40 MG/0.4 ML INJECTION SQ SCH (08:28)
[2017-08-15] MEDS: PANTOPRAZOLE 40 MG INJECTION IVP SCH ×2 (08:28→20:31)
[2017-08-15] MEDS: FLUCONAZOLE PB 400 MG/200 ML BAG IV SCH (09:34)
--- NOTE | 2017-08-15 11:20 | Pharmacy Consult-TPN/PPN ---
Pharmacy Consult-TPN/PPN - Laboratory Information Chemistry Turbidity < 20 (0-20) 08/15/17 04:07 Sodium 136 MEQ/L (134-144) 08/15/17 04:07 Potassium 4.0 MEQ/L (3.6-5) 08/15/17 04:07 Chloride 100 MEQ/L (98-107) 08/15/17 04:07 Carbon Dioxide 26 MEQ/L (22-30) 08/15/17 04:07 Anion Gap 10 MEQ/L (5-15) 08/15/17 04:07 BUN 6.0 MG/DL (9-20) L 08/15/17 04:07 Creatinine 0.5 mg/dL (0.8-1.5) L 08/15/17 04:07 GFR Calculation 195 08/15/17 04:07 BUN/Creatinine Ratio 12 RATIO (6-26) 08/15/17 04:07 Glucose 129 MG/DL (75-110) H 08/15/17 04:07 Glucometer 129 mg/dL (65-110) 08/15/17 06:07 Calculated Osmolality 262 MOSM/KG (261-280) 08/15/17 04:07 Calcium 7.6 MG/DL (8.4-10.2) L 08/15/17 04:07 Phosphorus 3.2 MG/DL (2.5-4.5) 08/15/17 04:07 Magnesium 2.2 MG/DL (1.6-2.3) 08/15/17 04:07 Total Bilirubin 0.50 MG/DL (0.20-1.30) 08/11/17 06:11 Icterus Index < 2 (0-7) 08/15/17 04:07 AST 26 U/L (17-59) 08/11/17 06:11 ALT 42 U/L (21-72) 08/11/17 06:11 Alkaline Phosphatase 170 U/L (38-126) H 08/11/17 06:11 Troponin I < 0.012 ng/ml (0-0.12) 08/11/17 00:49 Total Protein 5.9 g/dL (6.3-8.2) L 08/11/17 06:11 Albumin 2.3 g/dL (3.5-5.0) L 08/15/17 04:07 Globulin 3.2 G/DL (2.4-3.6) 08/11/17 06:11 Albumin/Globulin Ratio 0.8 RATIO (1.1-2.2) L 08/11/17 06:11 Prealbumin < 3.0 mg/dL (17.6-36.0) L 08/14/17 04:05 Plasma Lactate 1.8 MMOL/L (0.6-2.2) 08/12/17 07:48 Specimen Hemolysis < 15 (0-25) 08/15/17 04:07 Intake and Output 08/14/17 08/15/17 08/16/17 06:59 06:59 06:59 Intake Total 32200.416 / 72298.416 3823.583 / 3823.583 125 / 125 Output Total 06169 / 23024 4270 / 4270 1117 / 1117 Balance -601.584 / -601.584 -446.417 / -446.417 -992 / -992 Weight 92.5 kg 95.4 kg Intake: IV 3335.416 / 3335.416 3083.583 / 3083.583 125 / 125 D5-1/2NS with KCL 20mEq 1,000 2935.416 / 2935.416 593.167 / 593.167 ml @ 125 mls/hr IV .Q8H [facility] Rx# :[id number] Fat Emulsion 20% 500 ml @ 50 500.000 / 500.000 mls/hr IV 1600 [facility] Rx#: [id number] Fluconazole Pb 200 mg In 100 ml 200 / 200 @ 100 mls/hr IV O ONE Rx#: [id number] Fluconazole Pb 400 mg In 200 ml 200 / 200 @ 100 mls/hr IV Q24H [facility] Rx#: [id number] Multi-Vit Infusion 10 ml Multi 1295 / 1295 100 / 100 -Trace Elements 1 ml Potassium Chloride Inj 40 meq In Ppn - Standard Formula 2,000 ml @ 100 mls/hr IV .[id number] [facility] Rx#: [id number] Ns 1,000 ml @ 25 mls/hr IV . 295.416 / 295.416 25 / 25 Q24H [facility] Rx#:[id number] Piperacillin/Tazobactam 3.375 200 / 200 200 / 200 gm In Ns 50 ml @ 100 mls/hr IV Q6H [facility] Rx#:[id number] Oral 7340 / 7340 440 / 440 Intake (Blood Product) Amt 300 / 300 Output: Urine Amount (Catheter) 1550 / 1550 2345 / 2345 1010 / 1010 Gastric Drainage 9450 / 9450 1850 / 1850 Left Nare 9450 / 9450 1850 / 1850 Wound Drainage 277 / 277 75 / 75 107 / 107 Abdomen 140 / 140 20 / 20 35 / 35 Lower Abdomen 95 / 95 40 / 40 50 / 50 Right Lower 42 / 42 15 / 15 22 / Other: Urine Appearance Clear Clear Clear Urine Color Dark Yellow Yellow Yellow Drain Type Abdomen Bulb [place] Bulb [place] Lower Abdomen Bulb [place] Bulb [place] Bulb [place] Right Lower Bulb [place] Bulb [place] - Consult Information We will continue using the standard PPN formula with additional 40mEq of potassium phosphate per bag to run at 100mL per hour. Next bag is due around 1500 today. Thanks
[2017-08-15] MEDS: MORPHINE PCA 30 MG/30 ML SYRINGE IV PRN (11:40)
[2017-08-15] MEDS: MULTI-VIT INFUSION 10 ML, MULTI-TRACE ELEMENTS 1 ML, POTASSIUM CHLORIDE INJ 40 MEQ in ... IV SCH (13:54)
[2017-08-15] MEDS: MULTI VIT INFUSION IV SCH (15:21)
[2017-08-15] MEDS: MULTI TRACE ELEMENTS IV SCH (15:21)
[2017-08-15] MEDS: [UNRECOGNIZED DRUG - OTHER] IV SCH (15:21)
[2017-08-15] MEDS: FAT EMULSION 20% 500 ML IV SCH (15:28)
--- NOTE | 2017-08-15 16:45 | Internal Med Progress Note ---
Internal Medicine Subjective Patient was seen and examined in the ICU. Family at the bedside. Patient's answered. Alexis appears to be improving. He still has significant abdominal pain but states that it is different than prior to surgery. He was able to dangle his feet last night and may attempt to stand later on this evening. He denies cough or chest pain. I did review his labs with him and his family. Exam Vital Signs: Temperature 98.9 F 08/15/17 12:00 Pulse Rate 106 H 08/15/17 13:00 Respiratory Rate 30 H 08/15/17 15:32 Blood Pressure 129/70 08/15/17 13:00 Pulse Oximetry 93 08/15/17 13:00 Telemetry Rhythm: Sinus Tachycardia Height/Weight/BMI: Height 6 ft 2 in Weight 92.6 kg Body Mass Index 27.0 - Constitutional Present: no acute distress, cooperative - Routine HEENT Exam Head: Present: normocephalic, atraumatic Eye: Present: EOMI, PERRL, conjunctivae pink. Absent: conjunctival icterus, scleral injection ENT: Present: mucous membranes dry Comments: NG tube in place to intermittent suction - Routine Neck Exam Present: supple. Absent: lymphadenopathy, thyromegaly - Routine Respiratory Exam Present: CTA bilaterally. Absent: accessory muscle use - Routine Cardiovascular Exam Present: tachycardia. Absent: S3, S4 - Routine Abdominal Exam Present: tenderness, distended (mildly), guarding, drain, ostomy - Routine Extremities Exam Present: non tender. Absent: cyanosis, clubbing, edema, Hipolito's sign - Routine Skin Exam Present: intact, pallor, normal turgor. Absent: cyanosis, erythema, mottling, petechiae, urticaria, jaundice - Routine Neurological Exam Present: alert, oriented X3, CN II-XII intact - Routine Psychiatric Exam Present: normal affect, cooperative, good insight, good judgment. Absent: depressed, anxious Internal Medicine Results - Labs CBC & Chem 7: 08/15/17 04:07 08/15/17 04:07 Labs: Short CBC 08/15/17 Range/Units 04:07 WBC 16.3 H (4.5-11.0) T/MM3 Hgb 8.2 L (13.5-17.5) GM/DL Hct 27.1 L (41-53) % Plt Count 410 H (130-400) T/MM3 BMP 08/15/17 04:07 Sodium 136 Potassium 4.0 Chloride 100 Carbon Dioxide 26 BUN 6.0 L Creatinine 0.5 L Glucose 129 H Calcium 7.6 L Liver Function 08/15/17 Range/Units 04:07 Albumin 2.3 L (3.5-5.0) g/dL Urine 08/15/17 Range/Units 04:08 Urine Color Yellow (YELLOW) Urine Clarity Clear Urine pH 5.5 (5.0-8.0) Ur Specific [place] <=1.005 L (1.015-1.025) Urine Protein Negative (NEGATIVE) Urine Glucose (UA) Negative (NEGATIVE) Progress Note-A&P - Time Spent With Patient Total time spent is greater than 50% in coordination of care (as documented) at patient's floor/unit and/or counseling patient: greater than 35 minutes (1) Abdominal pain Status: Acute Assessment and plan: Surgical consultation with Dr. Russell. Postoperative abdominal pain is a little bit better today Current Visit: Yes (2) Anemia Status: Acute Assessment and plan: Hemoglobin is 8; a little less than yesterday Current Visit: Yes (3) Colorectal cancer Status: Acute Assessment and plan: He has had one round of adjuvant chemotherapy last week Current Visit: Yes (4) Weight loss, unintentional Status: Acute Current Visit: Yes (5) Acute blood loss anemia Status: Acute Current Visit: Yes (6) Perforated sigmoid colon Status: Acute Current Visit: Yes (7) Status post colostomy Status: Acute Current Visit: Yes (8) Protein-calorie malnutrition, severe Status: Acute Assessment and plan: TPN is unavailable so TPN has been substituted with lipids and additional K-Phos Current Visit: Yes (9) Hypophosphatemia Status: Acute Current Visit: Yes (10) Hypokalemia Status: Resolved Current Visit: Yes - Assessment and Plan Alexis appears to be slowly progressing. Of concern is his level of hemoglobin and his nutritional status. Carefully monitor for refeeding syndrome while increasing his calories. Potassium magnesium and phosphorus will be carefully monitored. His white count is elevated but he is also on colony-stimulating factor Hospital Course Summary Disclaimer: The visit summary below is not to be considered part of the above Progress Note.
--- NOTE | 2017-08-15 18:05 | Progress Note ---
DATE OF SERVICE 08/15/2017 FINDINGS Mr. Belcher was seen earlier this evening on rounds. He states that he continues to improve. He states that he was able to get up on the side of the bed today. He was unable, however, to stand. He states that his abdominal pain is slowly improving. PHYSICAL EXAM VITAL SIGNS: Afebrile, normotensive. Remains slightly tachycardic in nature. Please refer to EMR. ABDOMEN: Soft. MANUELITO drainage today was fairly clear in nature. There is still no air or stool within his colostomy. Colostomy is somewhat "sunken" in nature and is below the wafer which does make it somewhat more difficult to visualize. I did utilize a penlight and the colostomy mucosa does transilluminate well indicative of adequate blood supply. ASSESSMENT 31-year-old gentleman with history for perforated metastatic rectal cancer. Patient status post exploratory laparotomy with creation of end colostomy and mucous fistula placement of multiple intraabdominal drains. Patient making slow improvement on a daily basis. PLAN Continue with broad-spectrum antibiotics. Continue with PPN/hyperalimentation. Will continue with NG suction at this time and await the return of bowel activity. Once air or stool begin to be noted within colostomy appliance will DC NG and begin on clear liquids. I am overall pleased with the patient's progress at this time. DAVE
[2017-08-15] MEDS: TBO-FILGRASTIM 480mcg/0.8ml INJECTION SQ SCH (20:31)
[2017-08-16] MEDS: PIPERACILLIN/TAZOBACTAM 3.375 GM in NS 50 ML IV SCH ×4 (01:55→21:26)
[2017-08-16] MEDS: HYDROMORPHONE 2 MG/ML INJECTION IVP PRN ×3 (02:12→23:25)
[2017-08-16] MEDS: MORPHINE PCA 30 MG/30 ML SYRINGE IV PRN ×2 (03:15→20:03)
[2017-08-16] MEDS: NS 1,000 ML IV SCH ×2 (06:13→21:26)
[2017-08-16] MEDS: ENOXAPARIN 40 MG/0.4 ML INJECTION SQ SCH ×2 (07:54→11:25)
[2017-08-16] MEDS: PANTOPRAZOLE 40 MG INJECTION IVP SCH ×3 (07:57→21:26)
--- NOTE | 2017-08-16 09:42 | Progress Note ---
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 He stated that his pain in his abdomen is a little better than yesterday. He has had some small stools passed per rectum. He has had air and liquid passed through his ostomy. He states that when he was turned earlier this morning he felt very worn out and his oxygen was increased. He denies feeling short of breath. He denies any nausea. He denies any headache, chest pain or limb pain. He has dangled on the side of the bed a couple of times but has not been out of bed since surgery. Objective Vital signs: Temperature 99.7 F 08/16/17 04:00 Pulse Rate 116 H 08/16/17 07:00 Respiratory Rate 26 H 08/16/17 08:00 Blood Pressure 141/69 H 08/16/17 07:00 Pulse Oximetry 95 08/16/17 07:00 Height/Weight/BMI: Height 1.88 m Weight 92.6 kg Body Mass Index 27.0 Comments: Weight today is pending. I&O yesterday 4273/6798, -2524 MAXIMUM TEMPERATURE is 100.2, heart rate ranging from 104-128, respirations in the 20s, blood pressures have been normal GEN-, oriented, no acute distress HEENT-clear anicteric, oropharynx is moist, no thrush NECK-supple CV-borderline tachycardic rate with irregular rhythm CHEST-clear to auscultation bilaterally ABD-soft, moderately distended, positive bowel sounds -Edwards in place with good urine output EXT-no edema NEURO-no focal deficits SKIN-warm and dry Results - Labs CBC & Chem 7: 08/16/17 04:09 08/16/17 04:09 Labs: Bands are 25 down from 27 yesterday. I count is 12.1 down from 16.3 yesterday. Hemoglobin is 8.5 up from 8.2 yesterday. Calcium is 8.0, phosphorus 4.7, magnesium 2.2, albumin 2.4 Transaminases are normal Alkaline phosphatase is 173 and is stable Microbiology Results: Microbiology 08/12/17 17:18 Peritoneum Gram Stain - Final 08/12/17 17:18 Peritoneum Surgical Culture - Final Group G Streptococcus Escherichia coli Anaerobic Gram-Negative Robert Assessment and Plan (1) Abdominal pain Current visit: Yes Status: Acute (2) Anemia Current visit: Yes Status: Acute (3) Colorectal cancer Current visit: Yes Status: Acute (4) Hypokalemia Current visit: Yes Status: Resolved Assessment and Plan: Impression Colorectal cancer with perforated sigmoid colon Status post colostomy Peritonitis Acute blood loss anemia-received 1 unit of blood on 08/11, 08/12, and 08/14 Abdominal pain-improving, 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 Hemoglobin is stable. Vital signs have been fairly stable. Urine output has been great without need for diuretics. He has required an increase in oxygen this morning after being turned in bed. Will monitor closely. Abdominal pain is improving slowly. Continue Zosyn and fluconazole for peritonitis with ruptured viscus. Continue PPN for nutrition. Electrolytes are currently stable. Could decrease phosphorus and continue to monitor daily. Continue G-CSF as recommended by oncology Continue Protonix for GI prophylaxis and Lovenox for DVT prophylaxis The patient, his mother, and his nurse were updated on his condition and plans. 35 minutes of critical care time spent seeing and evaluating patient in determining care plan - Physician Narrative Narrative: Date: 08/16/17 Time: 0938 Hospital Course Summary Disclaimer: The visit summary below is not to be considered part of the above Progress Note.
[2017-08-16] MEDS: FLUCONAZOLE PB 400 MG/200 ML BAG IV SCH (10:06)
--- NOTE | 2017-08-16 11:39 | Progress Note ---
DATE OF SERVICE 08/16/2017 FINDINGS Alexis today was attempting to get out of the chair. He was in a moderate amount of discomfort as a result of his movement but stated overall he continues to improve. He states he did pass some stool from his anus as well as noticing some air within his colostomy. EXAM VITAL SIGNS: Afebrile, normotensive. Remains slightly tachycardic. CHEST: Clear to auscultation bilaterally. HEART: Regular rate and rhythm. Normal S1 and S2 without gallops, murmurs or clicks. ABDOMEN: Soft. Incisional tenderness present. There is some air present within his colostomy bag. MANUELITO drainage remains to be minimal and fairly clear. LABORATORY/RADIOGRAPHIC EVALUATION The patient had a CBC today and his white count is 12,000. Hemoglobin is 8.5. He does have a left shift with 25% bands which may be a result of his Neupogen. CMP obtained and reviewed. ASSESSMENT 31-year-old gentleman status post exploratory laparotomy with creation of end colostomy and mucous fistula secondary to perforated metastatic rectal cancer. Patient making slow improvement. PLAN Continue with current care. Tomorrow if there is more air within his colostomy will go ahead and DC NG and begin clear liquids. MTDD
[2017-08-16] MEDS: MULTI-VIT INFUSION 10 ML, MULTI-TRACE ELEMENTS 1 ML, POTASSIUM CHLORIDE INJ 40 MEQ in ... IV SCH (11:50)
[2017-08-16] MEDS: SALINE FLUSH 10ml SYRINGE IVF PRN (11:51)
[2017-08-16] MEDS: MULTI VIT INFUSION IV SCH (15:10)
[2017-08-16] MEDS: [UNRECOGNIZED DRUG - OTHER] IV SCH (15:10)
[2017-08-16] MEDS: MULTI TRACE ELEMENTS IV SCH (15:10)
[2017-08-16] MEDS: FAT EMULSION 20% 500 ML IV SCH (15:54)
[2017-08-16] MEDS: TBO-FILGRASTIM 480mcg/0.8ml INJECTION SQ SCH (21:25)
[2017-08-17] MEDS: D5-1/2NS with KCL 20mEq 1,000 ML IV SCH (00:51)
[2017-08-17] MEDS: PIPERACILLIN/TAZOBACTAM 3.375 GM in NS 50 ML IV SCH ×4 (02:56→21:27)
[2017-08-17] MEDS: HYDROMORPHONE 2 MG/ML INJECTION IVP PRN ×3 (04:26→21:26)
[2017-08-17] MEDS: MULTI-VIT INFUSION 10 ML, MULTI-TRACE ELEMENTS 1 ML, POTASSIUM CHLORIDE INJ 40 MEQ in ... IV SCH (08:55)
[2017-08-17] MEDS: PANTOPRAZOLE 40 MG INJECTION IVP SCH ×2 (09:01→21:42)
[2017-08-17] MEDS: ENOXAPARIN 40 MG/0.4 ML INJECTION SQ SCH (09:02)
[2017-08-17] MEDS: [UNRECOGNIZED DRUG - OTHER] IV SCH (09:34)
[2017-08-17] MEDS: MULTI VIT INFUSION IV SCH (09:34)
[2017-08-17] MEDS: MULTI TRACE ELEMENTS IV SCH (09:34)
[2017-08-17] MEDS: POTASSIUM CHLORIDE IV SCH (09:34)
[2017-08-17] MEDS: FLUCONAZOLE PB 400 MG/200 ML BAG IV SCH (09:35)
--- NOTE | 2017-08-17 09:42 | Progress Note ---
- Date 08/17/17 Subjective: Dr. Mcdaniel seeing the patient for Dr. Robert Espinoza is seen in his room today accompanied by his nurse and is parents. He states he's feeling a little bit better. He denies any abdominal pain except when he moves. He denies any shortness of breath but his abdomen feels full and he can't take a deep breath. He states that his ostomy bag was full of air last night. There is a little bit of air and some liquid and is back today. He states he has some numbness in the front of his left leg that has been present since prior to surgery. He states he was able to stand on the side of the bed yesterday. He states even prior to coming into the hospital he was very weak and could hardly walk. Objective Vital signs: Temperature 99.8 F 08/17/17 04:00 Pulse Rate 109 H 08/17/17 08:00 Respiratory Rate 15 08/17/17 08:00 Blood Pressure 132/74 08/17/17 08:00 Pulse Oximetry 94 08/17/17 08:00 Height/Weight/BMI: Height 1.88 m Weight 93.6 kg Body Mass Index 27.0 Comments: I&O yesterday 1556/2237 Cumulative I&O since admission is approximately 34 L/34 L MAXIMUM TEMPERATURE is 100.2. Heart rate ranges from 102-124. Blood pressure 132 /74 currently. O2 sat is 93% on 1 L GEN-alert, oriented, no acute distress HEENT-clear anicteric, oropharynx is moist NECK-supple CV-tachycardic rate with irregular rhythm CHEST-clear to auscultation bilaterally from the anterior ABD-soft, moderate tenderness, moderate distention, positive bowel sounds. There is a little tinged drainage in the ostomy bag along with some air. -Edwards in place with good urine output EXT-no edema NEURO-no focal weakness SKIN-warm and dry Results - Labs CBC & Chem 7: 08/17/17 04:21 08/17/17 04:21 Labs: Albumin is 2.6. Calcium 8.2. Magnesium 2.2. Phosphorus 3.9. Fasting blood sugar ranges from 115 to 129 Microbiology Results: Microbiology 08/12/17 17:18 Peritoneum Gram Stain - Final 08/12/17 17:18 Peritoneum Surgical Culture - Final Group G Streptococcus Escherichia coli Anaerobic Gram-Negative Robert Assessment and Plan (1) Abdominal pain Current visit: Yes Status: Acute (2) Anemia Current visit: Yes Status: Acute (3) Colorectal cancer Current visit: Yes Status: Acute (4) Hypokalemia Current visit: Yes Status: Resolved Assessment and Plan: Impression Colorectal cancer with perforated sigmoid colon Status post colostomy placement Peritonitis Acute blood loss anemia-received 1 unit of blood on 08/11, 08/12, and 08/14 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 He continues have good urine output without requiring diuretics. He appears euvolemic. Hemoglobin is improving. White count remains elevated secondary to G-CSF which was recommended by oncology. He continues on PPN for nutrition. Electrolytes are stable with normal phosphorus, magnesium, potassium and calcium. Albumin remains low at 2.6. Blood sugars are fairly well controlled despite TPN. Patient is passing flatus through his ostomy. Possible removal of NG later today at discretion of the surgeon. Continue Zosyn and fluconazole for peritonitis with ruptured viscus. Continue Protonix for GI prophylaxis and Lovenox for DVT prophylaxis. Discussed with the patient, his parents and his nurse. No changes and plan today other than possible removal of NG. DVT Prophylaxis: Lovenox GI Prophylaxis: Protonix Resuscitation Status: Full Code - Time spent with patient Time with patient PN: 35 minutes - Physician Narrative Narrative: Date: 08/17/17 Time: 0939 Hospital Course Summary Disclaimer: The visit summary below is not to be considered part of the above Progress Note.
[2017-08-17] MEDS: FAT EMULSION 20% 500 ML IV SCH (15:53)
[2017-08-17] MEDS: MORPHINE PCA 30 MG/30 ML SYRINGE IV PRN (15:58)
[2017-08-17] MEDS: NS 1,000 ML IV SCH (18:22)
[2017-08-17] MEDS: TBO-FILGRASTIM 480mcg/0.8ml INJECTION SQ SCH (21:43)
[2017-08-18] MEDS: HYDROMORPHONE 2 MG/ML INJECTION IVP PRN ×5 (00:28→16:45)
[2017-08-18] MEDS: PIPERACILLIN/TAZOBACTAM 3.375 GM in NS 50 ML IV SCH ×4 (02:52→20:53)
[2017-08-18] MEDS: POTASSIUM CHLORIDE IV SCH ×2 (07:07→07:35)
[2017-08-18] MEDS: MULTI TRACE ELEMENTS IV SCH ×2 (07:07→07:35)
[2017-08-18] MEDS: [UNRECOGNIZED DRUG - OTHER] IV SCH ×2 (07:07→07:35)
[2017-08-18] MEDS: MULTI VIT INFUSION IV SCH ×2 (07:07→07:35)
[2017-08-18] MEDS: PANTOPRAZOLE 40 MG INJECTION IVP SCH ×2 (08:19→20:42)
[2017-08-18] MEDS: ENOXAPARIN 40 MG/0.4 ML INJECTION SQ SCH (08:19)
--- NOTE | 2017-08-18 09:16 | Progress Note ---
DATE 08/17/2017 FINDINGS Alexis was in good spirits today. He denied severe pain. VITALS: Afebrile. Normotensive. He remains slightly tachycardic. ABDOMEN: Soft. Minimal incisional tenderness. Dressing was removed. Merry were removed between brit. Incision without evidence for erythema or purulent drainage. MANUELITO drainage remains minimal. Colostomy had a moderate amount of air. No stool. LABORATORY/RADIOGRAPH EVALUATION The patient's white count is elevated today which hopefully is a result of his Neupogen and not increasing infection. White count is 9.1 and stable. BMP without marked abnormalities. ASSESSMENT 31-year-old gentleman status post exploratory laparotomy with creation of mucous fistula and end colostomy secondary to metastatic perforated rectal cancer. Patient making ongoing improvement. PLAN Will go ahead and discontinue NG. Begin clear liquids. Continue, otherwise, with current care. MTDD
[2017-08-18] MEDS: MORPHINE PCA 30 MG/30 ML SYRINGE IV PRN (09:24)
[2017-08-18] MEDS: FLUCONAZOLE PB 400 MG/200 ML BAG IV SCH (09:29)
--- NOTE | 2017-08-18 09:44 | Pharmacy Consult-TPN/PPN ---
Pharmacy Consult-TPN/PPN - Laboratory Information Chemistry Turbidity < 20 (0-20) 08/18/17 04:00 Sodium 134 MEQ/L (134-144) 08/18/17 04:00 Potassium 4.4 MEQ/L (3.6-5) 08/18/17 04:00 Chloride 97 MEQ/L (98-107) L 08/18/17 04:00 Carbon Dioxide 25 MEQ/L (22-30) 08/18/17 04:00 Anion Gap 12 MEQ/L (5-15) 08/18/17 04:00 BUN 8.0 MG/DL (9-20) L 08/18/17 04:00 Creatinine 0.5 mg/dL (0.8-1.5) L 08/18/17 04:00 GFR Calculation 195 08/18/17 04:00 BUN/Creatinine Ratio 16 RATIO (6-26) 08/18/17 04:00 Glucose 127 MG/DL (75-110) H 08/18/17 04:00 Glucometer 123 mg/dL (65-110) 08/18/17 00:32 Calculated Osmolality 258 MOSM/KG (261-280) L 08/18/17 04:00 Calcium 8.3 MG/DL (8.4-10.2) L 08/18/17 04:00 Phosphorus 4.4 MG/DL (2.5-4.5) 08/18/17 04:00 Magnesium 2.1 MG/DL (1.6-2.3) 08/18/17 04:00 Total Bilirubin 0.90 MG/DL (0.20-1.30) 08/18/17 04:00 Icterus Index < 2 (0-7) 08/18/17 04:00 AST 28 U/L (17-59) 08/18/17 04:00 ALT 14 U/L (1-50) 08/18/17 04:00 Alkaline Phosphatase 213 U/L (38-126) H 08/18/17 04:00 Troponin I < 0.012 ng/ml (0-0.12) 08/11/17 00:49 Total Protein 6.1 g/dL (6.3-8.2) L 08/18/17 04:00 Albumin 2.6 g/dL (3.5-5.0) L 08/18/17 04:00 Globulin 3.5 G/DL (2.4-3.6) 08/18/17 04:00 Albumin/Globulin Ratio 0.7 RATIO (1.1-2.2) L 08/18/17 04:00 Prealbumin < 3.0 mg/dL (17.6-36.0) L 08/14/17 04:05 Plasma Lactate 1.8 MMOL/L (0.6-2.2) 08/12/17 07:48 Specimen Hemolysis < 15 (0-25) 08/18/17 04:00 Intake and Output 08/17/17 08/18/17 08/19/17 06:59 06:59 06:59 Intake Total 3618.8419 / 3618.8419 4478.2125 / 4478.2125 108.333 / 108.333 Output Total 5545 / 5545 2661 / 2661 69 / 69 Balance -1926.1581 / -1926.1581 1817.2125 / 1817.2125 39.333 / 39.333 Weight 91.4 kg 93.6 kg Intake: IV 3618.8419 / 3618.8419 3658.2125 / 3658.2125 108.333 / 108.333 Fat Emulsion 20% 500 ml @ 50 493.333 / 493.333 500.000 / 500.000 mls/hr IV 1600 [facility] Rx#: [id number] Fluconazole Pb 400 mg In 200 ml 200 / 200 200 / 200 @ 100 mls/hr IV Q24H [facility] Rx#: [id number] Multi-Vit Infusion 10 ml Multi 555.0909 / 555.0909 -Trace Elements 1 ml POTASSIUM PHOSPHATE (mEq) 40 meq In Ppn - Standard Formula 2,000 ml @ 100 mls/hr IV .[id number] [facility] Rx#: [id number] Multi-Vit Infusion 10 ml Multi 1783.334 / 1783.334 247.666 / 247.666 -Trace Elements 1 ml Potassium Chloride Inj 40 meq In Ppn - Standard Formula 2,000 ml @ 100 mls/hr IV .[id number] [facility] Rx#: [id number] Multi-Vit Infusion 10 ml Multi 2025.5455 / 2025.5455 -Trace Elements 1 ml Potassium Chloride Inj 20 meq POTASSIUM PHOSPHATE (mEq) 20 meq In Ppn - Standard Formula 2,000 ml @ 100 mls/hr IV .[id number] [facility] Rx#: [id number] Ns 1,000 ml @ 25 mls/hr IV . 387.084 / 387.084 485.001 / 485.001 58.333 / 58.333 Q24H [facility] Rx#:[id number] Piperacillin/Tazobactam 3.375 200.000 / 200.000 200 / 200 50 / 50 gm In Ns 50 ml @ 100 mls/hr IV Q6H [facility] Rx#:[id number] Oral 520 / 520 Intake (Blood Product) Amt 300 / 300 Output: Urine 395 / 395 Stool 125 / 125 Urine Amount (Catheter) 3105 / 3105 2516 / 2516 44 / 44 Gastric Drainage 1950 / 1950 Left Nare 1100 / 1100 Right Nare 850 / 850 Wound Drainage 95 / 95 20 / 20 25 / 25 Abdomen 25 / 25 3 / 3 5 / 5 Lower Abdomen 25 / 25 2 / 2 10 / 10 Right Lower 45 / 45 15 / 15 10 Other: Urine Appearance Clear Clear Urine Color Yellow Straw Urine Odor Strong Stool Characteristics Seedy Stool Color Brown Brown Stool Consistency Loose Liquid Size of Bowel Movement Moderate Small Drain Type Abdomen Bulb [place] Bulb [place] Bulb [place] Lower Abdomen Bulb [place] Bulb [place] Bulb [place] Right Lower Bulb [place] Bulb [place] Bulb [place] # Bowel Movements 1 # Incontinent Bowel Movements 1 - Consult Information Adjustments made to PPN formula, the additional Potassium chloride and potassium phosphate was removed from formula due to normalized labs. Will obtain Phosphate level with am labs. Standard formula PPN at 100 ml/hr. Thank you, Charissa Rice, [facility] electrolytes/bag as follows: total/bag Amino Acid 8.5% 1,000 ml Dextrose 10% 1,000 ml Sodium 70 meq Potassium 60 meq Magnesium 10 meq Calcium 9 meq Acetate 140 meq Chloride 78 meq Phosphate 30 mmol Multi vit inj 10 ml Multi-trace 1 ml
[2017-08-18] MEDS: FAT EMULSION 20% 500 ML IV SCH (16:04)
--- NOTE | 2017-08-18 18:07 | Internal Med Progress Note ---
Internal Medicine Subjective Patient was seen and examined in the ICU. Family at the bedside. Patient's answered. Notes from the weekend as well as the lab and radiology reviewed. Alexis was able to stand today and even sit in the recliner for about 4 hours. He states that his pain is worse this evening as a result. He has had some output through his ostomy and the NG tube was removed yesterday he is on clear liquids and advancing as tolerated. Exam Vital Signs: Temperature 98 F 08/18/17 16:00 Pulse Rate 104 H 08/18/17 16:00 Respiratory Rate 24 08/18/17 16:00 Blood Pressure 136/81 08/18/17 16:00 Pulse Oximetry 91 08/18/17 16:00 Telemetry Rhythm: Sinus Tachycardia Height/Weight/BMI: Height 6 ft 2 in Weight 90.1 kg Body Mass Index 27.0 - Constitutional Present: moderate distress, cooperative - Routine HEENT Exam Head: Present: normocephalic, atraumatic Eye: Present: EOMI, PERRL, conjunctivae pink. Absent: conjunctival icterus, scleral injection ENT: Present: mucous membranes dry, oropharynx clear, nares patent - Routine Neck Exam Present: supple. Absent: JVD, lymphadenopathy, thyromegaly - Routine Chest/Breast/Axilla Exam Chest wall: Absent: tenderness Axillae: Absent: lymphadenopathy - Routine Respiratory Exam Present: CTA bilaterally. Absent: accessory muscle use - Routine Cardiovascular Exam Absent: S3, S4 - Routine Abdominal Exam Present: distended, ostomy. Absent: normoactive bowel sounds (diminished bowel sounds but present) - Routine Extremities Exam Absent: cyanosis, clubbing, edema - Routine Skin Exam Present: intact, cyanosis. Absent: erythema, mottling, petechiae, urticaria, jaundice - Routine Neurological Exam Present: oriented X3, CN II-XII intact, moving all extremities. Absent: alert ( fatigue) - Routine Psychiatric Exam Present: cooperative, good insight, good judgment Internal Medicine Results - Labs CBC & Chem 7: 08/18/17 04:00 08/18/17 04:00 Labs: Short CBC 08/18/17 Range/Units 04:00 WBC 46.0 H* D (4.5-11.0) T/MM3 Hgb 9.2 L (13.5-17.5) GM/DL Hct 29.8 L (41-53) % Plt Count 384 (130-400) T/MM3 BMP 08/18/17 04:00 Sodium 134 Potassium 4.4 Chloride 97 L Carbon Dioxide 25 BUN 8.0 L Creatinine 0.5 L Glucose 127 H Calcium 8.3 L Liver Function 08/18/17 Range/Units 04:00 Total Bilirubin 0.90 (0.20-1.30) MG/DL AST 28 (17-59) U/L ALT 14 (1-50) U/L Alkaline Phosphatase 213 H (38-126) U/L Albumin 2.6 L (3.5-5.0) g/dL Progress Note-A&P - Time Spent With Patient Total time spent is greater than 50% in coordination of care (as documented) at patient's floor/unit and/or counseling patient: greater than 35 minutes (1) Abdominal pain Status: Acute Assessment and plan: Surgical consultation with Dr. Russell. Postoperative abdominal pain is a little bit better today Current Visit: Yes (2) Anemia Status: Acute Assessment and plan: Hemoglobin is 8; a little less than yesterday Current Visit: Yes (3) Colorectal cancer Status: Acute Assessment and plan: He has had one round of adjuvant chemotherapy last week Current Visit: Yes (4) Weight loss, unintentional Status: Acute Current Visit: Yes (5) Acute blood loss anemia Status: Acute Current Visit: Yes (6) Perforated sigmoid colon Status: Acute Current Visit: Yes (7) Status post colostomy Status: Acute Current Visit: Yes (8) Protein-calorie malnutrition, severe Status: Acute Assessment and plan: TPN is unavailable so TPN has been substituted with lipids and additional K-Phos Current Visit: Yes (9) Hypophosphatemia Status: Acute Current Visit: Yes (10) Hypokalemia Status: Resolved Current Visit: Yes - Assessment and Plan Surgery has to consider the NG tube and has started him on clear liquid diet and advancing as tolerated. He continues with the PPN nutrition and I'll probably continue this for another day or so due to his previous poor nutrition secondary to his obstruction. I'll recheck his prealbumin in the morning along with his metabolic panel. Hospital Course Summary Disclaimer: The visit summary below is not to be considered part of the above Progress Note.
[2017-08-18] MEDS: NS 1,000 ML IV SCH (18:54)
[2017-08-18] MEDS: SALINE FLUSH 10ml SYRINGE IVF PRN (20:42)
[2017-08-18] MEDS: FentaNYL 100 MCG/2 ML INJECTION IVP PRN ×2 (21:36→23:35)
[2017-08-19] MEDS: PIPERACILLIN/TAZOBACTAM 3.375 GM in NS 50 ML IV SCH ×4 (02:39→21:32)
[2017-08-19] MEDS: FentaNYL 100 MCG/2 ML INJECTION IVP PRN ×7 (02:44→22:59)
[2017-08-19] MEDS: MORPHINE PCA 30 MG/30 ML SYRINGE IV PRN ×2 (03:45→19:08)
[2017-08-19] MEDS: MULTI-VIT INFUSION 10 ML, MULTI-TRACE ELEMENTS 1 ML in PPN - STANDARD FORMULA 2,000 ML IV SCH (05:29)
[2017-08-19] MEDS: PANTOPRAZOLE 40 MG INJECTION IVP SCH ×3 (07:40→22:10)
[2017-08-19] MEDS: ENOXAPARIN 40 MG/0.4 ML INJECTION SQ SCH ×2 (07:41→08:49)
[2017-08-19] MEDS: FLUCONAZOLE PB 400 MG/200 ML BAG IV SCH (08:52)
--- NOTE | 2017-08-19 08:53 | Progress Note ---
DATE 08/18/2017 FINDINGS Alexis was seen this evening on rounds. He states that he had been up a chair for 4 hours today. The patient states he was a little sore as a result of being in the chair and walking from the chair to the bed. He denied any element of nausea. VITALS: Afebrile. Normotensive. Remains slightly tachycardic with a pulse of 104. CHEST: Clear to auscultation bilaterally. HEART: Regular rate and rhythm. Normal S1 and S2 without gallops, murmurs or clicks. ABDOMEN: Palpation of the abdomen revealed it to be soft with incisional tenderness being present. LABORATORY/RADIOGRAPH EVALUATION The patient's white count was elevated at 46,000 today which is likely a result of his Neupogen injections. He did have a left shift with 16% bands. A CMP was obtained and reviewed. Alk phos is elevated a little at 213, most likely a result of hyperalimentation/parenteral nutrition. Chloride is a little low at 97. ASSESSMENT 31-year-old gentleman status post exploratory laparotomy with creation of mucous fistula and end colostomy secondary to perforated metastatic colon cancer. Patient doing well. PLAN Will go ahead and advance diet as tolerated. Will discontinue Neupogen injections at this time. Otherwise, will continue with current care. [facility]
[2017-08-19] MEDS: NS 1,000 ML IV SCH ×2 (11:01→18:14)
--- NOTE | 2017-08-19 14:39 | Wound Care Progress Note ---
Wound Center Progress Note: Pt seen for f/u ostomy teaching. Pt sitting in chair watching TV. Pt states he is in "a lot of pain," requests I come back for teaching Friday or .
[2017-08-19] MEDS: FAT EMULSION 20% 500 ML IV SCH (15:17)
--- NOTE | 2017-08-19 18:53 | Internal Med Progress Note ---
Internal Medicine Subjective Patient was seen and examined in the ICU. Family at the bedside. Patient's answered. Patient ambulated into the room and up to a chair twice today. His abdominal pain has improved since yesterday with less distention in his abdomen. He says the pain got better once he was able to pass gas into his ostomy. He does appear quite fatigued this evening. He has not eaten much at all today. Exam Vital Signs: Temperature 97.1 F 08/19/17 16:00 Pulse Rate 102 H 08/19/17 17:30 Respiratory Rate 27 H 08/19/17 17:30 Blood Pressure 132/90 H 08/19/17 17:07 Pulse Oximetry 94 08/19/17 17:30 Telemetry Rhythm: Sinus Tachycardia Height/Weight/BMI: Height 6 ft 2 in Weight 88.4 kg Body Mass Index 27.0 - Constitutional Present: moderate distress, cooperative - Routine HEENT Exam Head: Present: normocephalic, atraumatic Eye: Present: EOMI, PERRL. Absent: conjunctival icterus, scleral injection, conjunctivae pink ENT: Present: mucous membranes moist, oropharynx clear, nares patent - Routine Neck Exam Present: supple. Absent: JVD, lymphadenopathy, thyromegaly - Routine Respiratory Exam Present: CTA bilaterally. Absent: accessory muscle use, rhonchi, wheezes - Routine Cardiovascular Exam Present: no murmur, tachycardia. Absent: S3, S4 - Routine Abdominal Exam Present: soft, distended (less distended today), ostomy Comments: Improved bowel sounds today and less tender to palpation - Routine Extremities Exam Absent: cyanosis, clubbing, edema - Routine Skin Exam Present: intact, dry. Absent: cyanosis, erythema, mottling, petechiae, urticaria, jaundice - Routine Neurological Exam Present: oriented X3, CN II-XII intact, moving all extremities. Absent: alert ( fatigued) - Routine Psychiatric Exam Present: cooperative, good insight, good judgment, depressed Internal Medicine Results - Labs CBC & Chem 7: 08/19/17 03:58 08/19/17 03:58 Labs: Short CBC 08/19/17 Range/Units 03:58 WBC 41.4 H* (4.5-11.0) T/MM3 Hgb 8.9 L (13.5-17.5) GM/DL Hct 29.2 L (41-53) % Plt Count 367 (130-400) T/MM3 BMP 08/19/17 03:58 Sodium 133 L Potassium 4.2 Chloride 98 Carbon Dioxide 26 BUN 9.0 Creatinine 0.5 L Glucose 161 H Calcium 8.1 L Liver Function 08/19/17 Range/Units 03:58 Albumin 2.5 L (3.5-5.0) g/dL Progress Note-A&P - Time Spent With Patient Total time spent is greater than 50% in coordination of care (as documented) at patient's floor/unit and/or counseling patient: greater than 35 minutes (1) Abdominal pain Status: Acute Assessment and plan: Surgical consultation with Dr. Russell. Postoperative abdominal pain is a little bit better today Current Visit: Yes (2) Anemia Status: Acute Assessment and plan: Hemoglobin is 8; a little less than yesterday Current Visit: Yes (3) Colorectal cancer Status: Acute Assessment and plan: He has had one round of adjuvant chemotherapy last week Current Visit: Yes (4) Weight loss, unintentional Status: Acute Current Visit: Yes (5) Acute blood loss anemia Status: Acute Current Visit: Yes (6) Perforated sigmoid colon Status: Acute Current Visit: Yes (7) Status post colostomy Status: Acute Current Visit: Yes (8) Protein-calorie malnutrition, severe Status: Acute Assessment and plan: Slowly improving Current Visit: Yes (9) Hypophosphatemia Status: Resolved Current Visit: Yes (10) Hypokalemia Status: Resolved Current Visit: Yes - Assessment and Plan Patient is slowly improving. He still needs to make gains with his oral intake and nutrition. I will keep him on TPN for now Hospital Course Summary Disclaimer: The visit summary below is not to be considered part of the above Progress Note.
--- NOTE | 2017-08-19 21:04 | Progress Note ---
DATE OF SERVICE 08/19/2017 FINDINGS Alexis was seen earlier today on rounds. He states that overall he is feeling better. States he did have some "gas pains" last evening. Patient states that just prior to my arrival earlier today he was passing a fair amount of gas into his colostomy and was feeling improved. PHYSICAL EXAM VITAL SIGNS: Afebrile, normotensive. Still remains slightly tachycardic with a pulse of 102. CHEST: Clear to auscultation bilaterally. HEART: Regular rate and rhythm. Normal S1 and S2 without gallops, murmurs or clicks. ABDOMEN: Soft. Minimal incisional tenderness. Air is present within his colostomy. LABORATORY/RADIOGRAPHIC EVALUATION The patient had a CBC today and his white count remains elevated at 41,000. Neupogen has been discontinued. Hemoglobin is stable at 8.9. BMP obtained and found to be essentially within normal limits. Sodium slightly low at 133. ASSESSMENT 31-year-old gentleman status post exploratory laparotomy with creation of end colostomy and mucous fistula secondary to perforated metastatic rectal cancer. Overall patient is doing fairly well. PLAN Will consult PT to try to increase the patient's physical activity/ambulation. Will recontact Respiratory Therapy, given his somewhat diminished breath sounds in his bases. Otherwise, will continue with current care. DAVE
[2017-08-19] MEDS ORDERED: ALBUTEROL 2.5mg/3ml (0.083%) NEB IPPB PRN (22:25)
[2017-08-19] MEDS: ALBUTEROL 2.5mg/3ml (0.083%) NEB IPPB SCH (22:41)
[2017-08-20] MEDS: MULTI-VIT INFUSION 10 ML, MULTI-TRACE ELEMENTS 1 ML in PPN - STANDARD FORMULA 2,000 ML IV SCH ×2 (02:27→22:13)
[2017-08-20] MEDS: PIPERACILLIN/TAZOBACTAM 3.375 GM in NS 50 ML IV SCH ×4 (02:31→20:21)
[2017-08-20] MEDS: FentaNYL 100 MCG/2 ML INJECTION IVP PRN ×4 (03:31→20:21)
[2017-08-20] MEDS: ALBUTEROL 2.5mg/3ml (0.083%) NEB IPPB SCH ×2 (08:00→20:07)
[2017-08-20] MEDS: FLUCONAZOLE PB 400 MG/200 ML BAG IV SCH (09:30)
[2017-08-20] MEDS: ENOXAPARIN 40 MG/0.4 ML INJECTION SQ SCH (09:30)
[2017-08-20] MEDS: PANTOPRAZOLE 40 MG INJECTION IVP SCH ×2 (09:31→20:21)
--- NOTE | 2017-08-20 13:12 | Internal Med Progress Note ---
Internal Medicine Subjective Patient was seen and examined in the ICU. Family at the bedside. Alexis appears very fatigued in the bed but indicates that he was able to get from the bed and ambulate to the recliner earlier today. He also worked with physical therapy. He states that he's been having more activity through his ostomy which is good. He also worked with respiratory therapy with breathing treatments and breathing exercises and states that also point out a bit. I did review his labs with him showing that his nutrition status is improving with the PPN and his oral intake. His white count is down to 37,000 following a peak of greater than 40, 000 secondary to Neupogen. This was stopped on Friday. No other new problems at this time. Exam Vital Signs: Temperature 98.5 F 08/20/17 08:33 Pulse Rate 104 H 08/20/17 11:30 Respiratory Rate 30 H 08/20/17 11:30 Blood Pressure 136/86 08/20/17 11:00 Pulse Oximetry 93 08/20/17 11:30 Telemetry Rhythm: Sinus Tachycardia Height/Weight/BMI: Height 6 ft 2 in Weight 88.4 kg Body Mass Index 27.0 - Constitutional Present: no acute distress, cooperative - Routine HEENT Exam Head: Present: normocephalic, atraumatic Eye: Present: EOMI, PERRL. Absent: conjunctival icterus, scleral injection, conjunctivae pink ENT: Present: mucous membranes moist, oropharynx clear, nares patent - Routine Neck Exam Present: supple. Absent: JVD, carotid bruit, lymphadenopathy - Routine Respiratory Exam Present: accessory muscle use, CTA bilaterally. Absent: rhonchi, wheezes - Routine Cardiovascular Exam Present: no murmur, tachycardia. Absent: S3, S4 - Routine Abdominal Exam Present: distended, ostomy. Absent: normoactive bowel sounds (managed been active bowel sounds) - Routine Extremities Exam Absent: cyanosis, clubbing, edema - Routine Skin Exam Present: intact. Absent: cyanosis, erythema, pallor, mottling, petechiae, jaundice - Routine Neurological Exam Present: oriented X3, CN II-XII intact. Absent: alert - Routine Psychiatric Exam Present: cooperative, good insight, good judgment. Absent: normal affect ( painful affect), depressed, anxious Internal Medicine Results - Labs CBC & Chem 7: 08/20/17 04:07 08/20/17 04:07 Labs: Short CBC 08/20/17 Range/Units 04:07 WBC 37.2 H* (4.5-11.0) T/MM3 Hgb 8.8 L (13.5-17.5) GM/DL Hct 29.0 L (41-53) % Plt Count 368 (130-400) T/MM3 BMP 08/20/17 04:07 Sodium 133 L Potassium 4.0 Chloride 98 Carbon Dioxide 27 BUN 9.0 Creatinine 0.5 L Glucose 164 H Calcium 8.0 L Liver Function 08/20/17 Range/Units 04:07 Albumin 2.5 L (3.5-5.0) g/dL Progress Note-A&P - Time Spent With Patient Total time spent is greater than 50% in coordination of care (as documented) at patient's floor/unit and/or counseling patient: greater than 35 minutes (1) Abdominal pain Status: Acute Assessment and plan: Surgical consultation with Dr. Russell. Postoperative abdominal pain is a little bit better today Current Visit: Yes (2) Anemia Status: Acute Assessment and plan: Hemoglobin is 8; a little less than yesterday Current Visit: Yes (3) Colorectal cancer Status: Acute Assessment and plan: He has had one round of adjuvant chemotherapy last week Current Visit: Yes (4) Weight loss, unintentional Status: Acute Current Visit: Yes (5) Acute blood loss anemia Status: Acute Current Visit: Yes (6) Perforated sigmoid colon Status: Acute Current Visit: Yes (7) Status post colostomy Status: Acute Current Visit: Yes (8) Protein-calorie malnutrition, severe Status: Acute Assessment and plan: Slowly improving Current Visit: Yes (9) Hypophosphatemia Status: Resolved Current Visit: Yes (10) Hypokalemia Status: Resolved Current Visit: Yes - Assessment and Plan We will continue his PPN nutrition for now. His oral intake is still minimal. He has distention albeit less than before. This, however appears to be affecting his breathing tidal volume. We'll have him continue working with physical therapy and respiratory therapy. Hospital Course Summary Disclaimer: The visit summary below is not to be considered part of the above Progress Note.
[2017-08-20] MEDS: FAT EMULSION 20% 500 ML IV SCH (15:49)
[2017-08-20] MEDS: MORPHINE PCA 30 MG/30 ML SYRINGE IV PRN (17:08)
[2017-08-20] MEDS: NS 1,000 ML IV SCH (19:25)
--- NOTE | 2017-08-20 19:40 | Progress Note ---
DATE OF SERVICE 08/20/2017 FINDINGS Mr. Belcher was seen this afternoon on rounds. He states that he continues to experience a fair amount of pain. I did spend a little extra time talking with the patient this evening. He informs me that he had gotten to the point that he was unable to walk very well prior to his admission. He had been sick for a number of months prior to his presentation. Patient states that he is having a hard time dealing with the overall magnitude of his illness. He did admit he is somewhat depressed. Patient states that he has been trying to do as much as possible but has refused at times as a result of this severe pain. Patient states that overall he is feeling about the same and perhaps just slightly improved. PHYSICAL EXAM VITAL SIGNS: Afebrile, normotensive. He remains to be slightly tachycardic with a pulse 104. CHEST: Clear to auscultation bilaterally. HEART: Regular rate and rhythm. Normal S1 and S2 without gallops, murmurs or clicks. ABDOMEN: Palpation of the abdomen reveals some ongoing tenderness although there is no evidence for guarding or rebound tenderness. There is now stool and a moderate amount of air within his ostomy. LABORATORY/RADIOGRAPHIC EVALUATION CBC was obtained and his white count remains to be elevated at 37.2. He does have a left shift with 16% bands. The patient was given Neupogen for a week postoperatively which has made it a little more difficult to follow his white blood cell count as a potential sign of infection. BMP obtained and found to be without marked abnormalities. Albumin remains low at 2.5. ASSESSMENT 31-year-old gentleman with history for perforated widely metastatic rectal cancer. Patient status post exploratory laparotomy with creation of end colostomy and mucous fistula. PLAN I would have thought that the patient would have made more improvement by now postoperatively. I am surprised the patient continues to have the degree of pain that he is experiencing. Given the fact that we cannot follow his white count as a sign of ongoing infection and the fact that he continues to have more pain than expected, I am going to go ahead and order a CT scan of his abdomen and pelvis tomorrow for further evaluation to rule out that he is not developing an intraabdominal abscess, given the degree of contamination noted at his original surgery. Will await his CT scan results and proceed accordingly. DAVE
[2017-08-21] MEDS: FentaNYL 100 MCG/2 ML INJECTION IVP PRN ×2 (00:04→10:45)
[2017-08-21] MEDS ORDERED: IOHEXOL 300mg/ml 100ml INJECTION ONE (00:45)
[2017-08-21] MEDS ORDERED: SALINE FLUSH 10ml SYRINGE ONE (00:45)
[2017-08-21] MEDS: PIPERACILLIN/TAZOBACTAM 3.375 GM in NS 50 ML IV SCH ×4 (02:10→20:10)
[2017-08-21] MEDS: ALBUTEROL 2.5mg/3ml (0.083%) NEB IPPB SCH ×2 (09:32→19:22)
[2017-08-21] MEDS: PANTOPRAZOLE 40 MG INJECTION IVP SCH ×2 (09:34→20:10)
[2017-08-21] MEDS: HYDROCODONE/APAP 5mg/325mg TABLET PO PRN (09:36)
[2017-08-21] MEDS: SIMETHICONE 125 MG CAPSULE PO PRN (09:36)
[2017-08-21] MEDS: SALINE FLUSH 10ml SYRINGE IVF PRN ×3 (09:37→19:04)
[2017-08-21] MEDS: MORPHINE PCA 30 MG/30 ML SYRINGE IV PRN (09:47)
[2017-08-21] MEDS: FLUCONAZOLE PB 400 MG/200 ML BAG IV SCH (10:40)
--- NOTE | 2017-08-21 10:40 | General Surgery Progress Note ---
Subjective Narrative: He is feeling real "tight" in the abdomen, bloated. Denies nausea. He is having stool in the colostomy bag and has had some discharge from the rectum. Denies chest pain. States it is still very painful to get out of bed or try to ambulate. PT/OT have been ordered to help encourage activity. - Vital Signs Last Vital Signs Temp 98.6 F 08/21/17 07:58 Pulse 117 H 08/21/17 07:00 Resp 29 H 08/21/17 09:47 BP 147/89 H 08/21/17 07:00 Pulse Ox 94 08/21/17 09:40 - Laboratory Result Diagrams: 08/21/17 04:24 08/21/17 04:24 - Abnormal Exam General: mild distress (regarding abd pain) Abdominal: firm, tender (throughout, but lateral palpation did NOT increase pain.) - Normal Exam General: awake, alert Cardiovascular: regular rate (slightly tachy) Respiratory: no labored breathing Abdominal: incision(s) (dressings in tact, I lifted the tape enough to see the gauze is dry.), other (colostomy is retracted, brown stool covering the colostomy) Assessment and Plan (1) Perforated sigmoid colon Current Visit: Yes Status: Acute (2) Status post colostomy Current Visit: Yes Status: Acute (3) Acute blood loss anemia Current Visit: Yes Status: Acute (4) Colon obstruction Current Visit: Yes Status: Acute (5) Colorectal cancer Current Visit: Yes Status: Acute Plan: Not eating much, PPN/TPN infusing. Abd pain and distention, getting CT abd today. WBC coming down some, Neupogen stopped several days ago. Hospital Course Summary Disclaimer: The visit summary below is not to be considered part of the above Progress Note.
[2017-08-21] MEDS: ENOXAPARIN 40 MG/0.4 ML INJECTION SQ SCH (10:42)
--- NOTE | 2017-08-21 13:06 | Internal Med Progress Note ---
Internal Medicine Subjective Patient was seen and examined in the ICU. Family at the bedside. Patient has had increased distention in his abdomen over the last 36 hours. Surgery has ordered a CT of the abdomen. He does complain of significant diffuse abdominal pain that is much worse with movement. His white blood cell count is down again today. Exam Vital Signs: Temperature 98.6 F 08/21/17 12:00 Pulse Rate 108 H 08/21/17 12:00 Respiratory Rate 30 H 08/21/17 11:30 Blood Pressure 135/80 08/21/17 11:14 Pulse Oximetry 93 08/21/17 11:30 Telemetry Rhythm: Sinus Rhythm Height/Weight/BMI: Height 6 ft 2 in Weight 89.2 kg Body Mass Index 27.0 - Constitutional Present: moderate distress - Routine HEENT Exam Head: Present: normocephalic, atraumatic Eye: Present: EOMI, PERRL. Absent: conjunctival icterus, scleral injection, conjunctivae pink ENT: Present: mucous membranes moist, oropharynx clear, nares patent - Routine Neck Exam Present: supple. Absent: lymphadenopathy, thyromegaly - Routine Chest/Breast/Axilla Exam Chest wall: Absent: tenderness Axillae: Absent: lymphadenopathy - Routine Respiratory Exam Present: CTA bilaterally (anteriorly). Absent: accessory muscle use - Routine Cardiovascular Exam Present: RRR. Absent: S3, S4 - Routine Abdominal Exam Present: distended. Absent: normoactive bowel sounds (high tinkling bowel sounds in the right upper quadrant) - Routine Extremities Exam Absent: cyanosis, clubbing, edema - Routine Skin Exam Present: intact, pallor. Absent: cyanosis, erythema, mottling, petechiae, urticaria, jaundice - Routine Neurological Exam Present: oriented X3, CN II-XII intact. Absent: alert - Routine Psychiatric Exam Present: cooperative, good insight, good judgment. Absent: normal affect ( obvious pain) Internal Medicine Results - Labs CBC & Chem 7: 08/21/17 04:24 08/21/17 04:24 Labs: Short CBC 08/21/17 Range/Units 04:24 WBC 33.1 H* (4.5-11.0) T/MM3 Hgb 8.9 L (13.5-17.5) GM/DL Hct 29.1 L (41-53) % Plt Count 381 (130-400) T/MM3 BMP 08/21/17 04:24 Sodium 135 Potassium 4.1 Chloride 99 Carbon Dioxide 27 BUN 10.0 Creatinine 0.5 L Glucose 157 H Calcium 8.2 L Liver Function 08/21/17 Range/Units 04:24 Albumin 2.6 L (3.5-5.0) g/dL Progress Note-A&P - Time Spent With Patient Total time spent is greater than 50% in coordination of care (as documented) at patient's floor/unit and/or counseling patient: greater than 35 minutes (1) Abdominal pain Status: Acute Assessment and plan: Surgical consultation with Dr. Russell. Postoperative abdominal pain is a little bit better today Current Visit: Yes (2) Anemia Status: Acute Assessment and plan: Hemoglobin is 8; a little less than yesterday Current Visit: Yes (3) Colorectal cancer Status: Acute Assessment and plan: He has had one round of adjuvant chemotherapy last week Current Visit: Yes (4) Weight loss, unintentional Status: Acute Current Visit: Yes (5) Acute blood loss anemia Status: Acute Current Visit: Yes (6) Perforated sigmoid colon Status: Acute Current Visit: Yes (7) Status post colostomy Status: Acute Current Visit: Yes (8) Protein-calorie malnutrition, severe Status: Acute Assessment and plan: Slowly improving Current Visit: Yes (9) Hypophosphatemia Status: Resolved Current Visit: Yes (10) Hypokalemia Status: Resolved Current Visit: Yes - Assessment and Plan Patient will let us CT of his abdomen today. Plan to follow Hospital Course Summary Disclaimer: The visit summary below is not to be considered part of the above Progress Note.
--- NOTE | 2017-08-21 14:10 | CT Scan Report ---
Indication: ongoing pain,leukocytosis PROCEDURE: CT abdomen pelvis w con: Encounter: Initial Comparison: Acute abdomen series dated August 12, [address] abdomen/pelvis dated July 21, 2017 Technique: Axial CT images were performed through the abdomen and pelvis after the administration of intravenous contrast. Coronal and sagittal two-dimensional reformats. Automated Exposure Control and Iterative Reconstruction dose reducing techniques were utilized. Contrast: Omnipaque 300 100 mL Findings: Atelectasis in both lower lobes with volume loss. Trace pleural effusions. Large metastatic lesions are again seen scattered throughout the liver. No bile duct dilatation. The spleen is enlarged at 15.3 cm anteroposterior dimension. The pancreas appears normal. Left adrenal mass. Right adrenal gland appears normal. The kidneys are normal. Edwards catheter within the bladder. Irregular mass seen in the left aspect of the rectum. There is irregular soft tissue and fluid seen in the pelvis. Most of this is present on the comparison CT representing tumor and adjacent adenopathy. There is significant wall thickening and inflammation within the sigmoid colon measuring up to 1.1 cm in thickness on axial image #96. There is an adjacent surgical drain present.. The drain extends into a rim-enhancing abscess in the left anterior pelvis seen on axial image #93 measuring 5.3 x 4.7 x 6 cm in size which contains small foci of gas. There are few extraluminal foci of gas along the margin of the surgical drain also noted on axial image #87 near the left iliac bone. Significant wall thickening within the sigmoid colon extending to the patient's left lower quadrant diverting colostomy. There is distention of the upstream colon particularly the right and proximal transverse colon with gas. Dilated gas and fluid-filled small bowel loops are present measuring up to 5.6 cm in diameter in the left midabdomen. The small bowel is diffusely dilated except for the duodenum and proximal jejunum. No focal distal transition point is seen. Diffuse subcutaneous edema. Impression: 1. Significantly dilated small bowel could represent a small bowel obstruction due to inflammatory adhesions given the severely inflamed distal aspect of the colon nearby to these dilated loops in the lower right abdomen and pelvis. Alternatively the findings could represent a severe ileus given the history of recent surgery and the prominent gas-filled appearance of the right and transverse colon. 2. Severely inflamed and edematous sigmoid colon. Differential considerations include infectious, inflammatory and ischemic colitis. 3. Left pelvic abscess with a drain within it. 4. Anasarca .
--- NOTE | 2017-08-21 16:56 | Progress Note ---
DATE 08/21/2017 FINDINGS Alexis was seen earlier today on rounds. He was complaining of increasing abdominal distention and pain throughout his entire abdomen. He was not in good spirits today. OBJECTIVE VITALS: Temperature 98.6. Pulse 108. Respirations 30. Blood pressure 135/ 80. SaO2 93% on room air. HEENT: Normocephalic. Pupils are equally round and react to light and accommodation. CHEST: Clear to auscultation bilaterally. HEART: Regular rate and rhythm. Normal S1, S2, without gallops, murmurs or clicks. ABDOMEN: Visualization of the abdomen does reveal it to be more distended in its overall appearance. Palpation of the abdomen revealed the abdominal wall to be fairly taut. There was however, stool and air within his colostomy. It is hard to assess the actual ostomy for there is a moderate amount of stool overlying the colostomy itself. LABORATORY/RADIOGRAPHIC EVALUATION The patient had a CBC today and his white count continues on a downward trend at 33,000 after discontinuing his Neupogen. Bandemia is improved to 4%. Still has left shift with 86% neutrophils. BMP was obtained and found to be without marked abnormalities. I did elect to go ahead and proceed with CT scan of his abdomen and pelvis yesterday as dictated previously. I did review the CT scan and there is significant small bowel distention throughout. There do appear to be some inflammatory changes involving the distal segment of the small bowel beyond the colostomy. This was the segment that was quite inflamed at the time of surgery as a result of the perforation. ASSESSMENT 31-year-old male status post exploratory laparotomy with drainage of intra- abdominal abscess and creation of end colostomy and mucous fistula secondary to perforated metastatic rectal cancer. CT scan revealing evidence for bowel obstruction versus ileus. PLAN I do not feel the patient is truly suffering from acute small bowel obstruction but more of an ileus as a result of the gross peritoneal contamination that was present at the initial operation. Given his increasing discomfort and CT scan, I had recommended proceeding with placement of nasogastric tube. NG was placed. Will continue otherwise with current care. Hopefully the patient's abdominal discomfort will improve after decompression of the stomach and proximal small bowel. Will continue to follow closely. There was a fluid collection with a drain within it in the pelvis as well noted on CT scan. I still feel the patient's prognosis is guarded but will continue with aggressive care at this time. MTDD
[2017-08-21] MEDS: FAT EMULSION 20% 500 ML IV SCH (19:04)
[2017-08-21] MEDS: MULTI-VIT INFUSION 10 ML, MULTI-TRACE ELEMENTS 1 ML in PPN - STANDARD FORMULA 2,000 ML IV SCH (19:04)
[2017-08-21] MEDS: NS 1,000 ML IV SCH (19:06)
[2017-08-22] MEDS: PIPERACILLIN/TAZOBACTAM 3.375 GM in NS 50 ML IV SCH ×4 (02:58→20:42)
[2017-08-22] MEDS: ENOXAPARIN 40 MG/0.4 ML INJECTION SQ SCH (08:28)
[2017-08-22] MEDS: PANTOPRAZOLE 40 MG INJECTION IVP SCH ×2 (08:28→20:42)
[2017-08-22] MEDS: ALBUTEROL 2.5mg/3ml (0.083%) NEB IPPB SCH ×2 (08:40→19:04)
[2017-08-22] MEDS: FLUCONAZOLE PB 400 MG/200 ML BAG IV SCH (09:51)
[2017-08-22] MEDS: FentaNYL 100 MCG/2 ML INJECTION IVP PRN (12:29)
[2017-08-22] MEDS: MULTI-VIT INFUSION 10 ML, MULTI-TRACE ELEMENTS 1 ML in PPN - STANDARD FORMULA 2,000 ML IV SCH (15:16)
[2017-08-22] MEDS: FAT EMULSION 20% 500 ML IV SCH (15:42)
--- NOTE | 2017-08-22 17:43 | Progress Note ---
DATE OF SERVICE 08/22/2017 FINDINGS Alexis was seen earlier today on rounds. He states that he is feeling better after having his NG placed. He still, however, is experiencing a fair amount of lower abdominal discomfort with movement. PHYSICAL EXAM VITAL SIGNS: Afebrile, normotensive. When I saw the patient his pulse was in the low 90s which is the best that I have seen him since surgery. Last recorded pulse was 102 within the EMR. CHEST: Clear to auscultation bilaterally. HEART: Regular rate and rhythm. Normal S1 and S2 without gallops, murmurs or clicks. ABDOMEN: Visualization of the abdomen reveals it to be significantly less distended today in comparison to yesterday after placement of his NG. Palpation of the abdomen does not reveal it to be nearly as taut today as well. Less tenderness is present. There is a fair amount of stool now present within his colostomy. LABORATORY Lab was reviewed. White count continues on a downward trend and is 24,000 today. Hemoglobin is stable at 8.6. BMP without marked abnormalities. ASSESSMENT 31-year-old gentleman status post exploratory laparotomy with creation of end colostomy and mucous fistula secondary to perforated metastatic rectal cancer. Patient making slow improvement. PLAN CT scan yesterday did reveal an ileus versus obstructive pattern. I do feel we are dealing more with an ileus rather than that of a true bowel obstruction. There was a fair amount of stool within his colostomy today, as stated above. I recommend that we continue with ongoing broad-spectrum antibiotics. Recommend we continue with ongoing NG suction over the course of the next few days to decompress his bowel. Will perhaps early next week clamp his NG and try to advance the patient's diet. Overall, I am pleased with the patient's progress over the last 24 hours. DAVE
--- NOTE | 2017-08-22 18:17 | Internal Med Progress Note ---
Internal Medicine Subjective Patient was seen and examined in the ICU. Family at the bedside. Alexis appears much improved over yesterday. He has had significant output through his nasogastric tube. He is much less distended. He also states his pain is better controlled with this result. He denies chest pain and is breathing better today. He was able to dangle his legs at the side of the bed twice today but he did not ambulate. He also indicates that he didn't sleep much at all last night. Exam Vital Signs: Temperature 98.3 F 08/22/17 16:00 Pulse Rate 107 H 08/22/17 17:00 Respiratory Rate 32 H 08/22/17 17:00 Blood Pressure 133/81 08/22/17 12:00 Pulse Oximetry 96 08/22/17 17:00 Telemetry Rhythm: Sinus Tachycardia Height/Weight/BMI: Height 6 ft 2 in Weight 87.1 kg Body Mass Index 27.0 - Constitutional Present: no acute distress, cooperative - Routine HEENT Exam Head: Present: normocephalic, atraumatic Eye: Present: EOMI, conjunctivae pink. Absent: conjunctival icterus, scleral injection ENT: Present: mucous membranes moist, oropharynx clear, nares patent - Routine Neck Exam Present: supple. Absent: JVD, lymphadenopathy, thyromegaly - Routine Chest/Breast/Axilla Exam Chest wall: Absent: tenderness Axillae: Absent: lymphadenopathy - Routine Respiratory Exam Present: CTA bilaterally. Absent: accessory muscle use - Routine Cardiovascular Exam Present: no murmur. Absent: S3, S4 - Routine Abdominal Exam Present: soft, normoactive bowel sounds, tenderness, ostomy. Absent: guarding - Routine Extremities Exam Absent: cyanosis, clubbing, edema - Routine Skin Exam Present: intact, pallor. Absent: cyanosis, mottling, petechiae, urticaria, jaundice - Routine Neurological Exam Present: alert, oriented X3, CN II-XII intact - Routine Psychiatric Exam Present: normal affect, cooperative, good insight, good judgment, depressed Internal Medicine Results - Labs CBC & Chem 7: 08/22/17 04:37 08/22/17 04:37 Labs: Short CBC 08/22/17 Range/Units 04:37 WBC 24.9 H (4.5-11.0) T/MM3 Hgb 8.6 L (13.5-17.5) GM/DL Hct 27.7 L (41-53) % Plt Count 388 (130-400) T/MM3 BMP 08/22/17 04:37 Sodium 135 Potassium 3.7 Chloride 100 Carbon Dioxide 25 BUN 9.0 Creatinine 0.4 L Glucose 155 H Calcium 8.0 L Liver Function 08/22/17 Range/Units 04:37 Albumin 2.5 L (3.5-5.0) g/dL Progress Note-A&P - Time Spent With Patient Total time spent is greater than 50% in coordination of care (as documented) at patient's floor/unit and/or counseling patient: greater than 35 minutes (1) Abdominal pain Status: Acute Assessment and plan: Surgical consultation with Dr. Russell. Postoperative abdominal pain is a little bit better today Current Visit: Yes (2) Anemia Status: Acute Assessment and plan: Hemoglobin is 8; a little less than yesterday Current Visit: Yes (3) Colorectal cancer Status: Acute Assessment and plan: He has had one round of adjuvant chemotherapy last week Current Visit: Yes (4) Weight loss, unintentional Status: Acute Current Visit: Yes (5) Acute blood loss anemia Status: Acute Current Visit: Yes (6) Perforated sigmoid colon Status: Acute Current Visit: Yes (7) Status post colostomy Status: Acute Current Visit: Yes (8) Protein-calorie malnutrition, severe Status: Acute Assessment and plan: Slowly improving Current Visit: Yes (9) Hypophosphatemia Status: Resolved Current Visit: Yes (10) Hypokalemia Status: Resolved Current Visit: Yes - Assessment and Plan Aleixs's white count is slowly coming down following the discontinuation of Neupogen. His abdomen is much less distended since replacing the nasogastric tube. He does indicate that he is finally starting to get an appetite. We will continue current care at this time and increase his activity as tolerated. Continue to follow his nutrition status and consider increasing his PPN. Hospital Course Summary Disclaimer: The visit summary below is not to be considered part of the above Progress Note.
[2017-08-22] MEDS: NS 1,000 ML IV SCH (19:14)
[2017-08-23] MEDS: PIPERACILLIN/TAZOBACTAM 3.375 GM in NS 50 ML IV SCH ×4 (02:20→20:47)
[2017-08-23] MEDS: ALBUTEROL 2.5mg/3ml (0.083%) NEB IPPB SCH ×2 (09:24→20:02)
[2017-08-23] MEDS: FLUCONAZOLE PB 400 MG/200 ML BAG IV SCH (09:49)
--- NOTE | 2017-08-23 10:39 | Progress Note ---
- Date 08/23/17 Subjective: F/U: Perforated adenocarcinoma involving rectosigmoid junction with development of multiple intraabdominal abscesses and associated small bowel obstruction. Coverage for Dr Jones Doing okay today. Tolerating NG (makes throat sore)-much less ab distention and nausea since tube replaced. Nursing has NG clamped so pt can be closer to window for a 'change of scenery.' Pain control. Passing some flatus. Breathing well-not SOA or congested. Strength very decreased-today first time OOB in many days. Objective Vital signs: Temperature 98.3 F 08/23/17 00:16 Pulse Rate 109 H 08/23/17 06:00 Respiratory Rate 22 08/23/17 06:00 Blood Pressure 133/81 08/23/17 00:16 Pulse Oximetry 94 08/23/17 09:25 Height/Weight/BMI: Height 1.88 m Weight 87.1 kg Body Mass Index 27.0 - Constitutional Present: well nourished, well developed, average body habitus - Routine HEENT Exam Head: Present: normocephalic, atraumatic Eye: Present: EOMI, PERRL ENT: Present: mucous membranes moist - Routine Respiratory Exam Present: decreased breath sounds. Absent: rales, respiratory distress, rhonchi , stridor, wheezes, crackles - Routine Cardiovascular Exam Present: RRR, no murmur - Routine Abdominal Exam Present: soft, non distended, non tender. Absent: normoactive bowel sounds (BS not present) - Routine Extremities Exam Present: no edema, pulses intact. Absent: cyanosis, clubbing - Routine Musculoskeletal Exam Musculoskeletal: Present: no clubbing or cyanosis - Routine Skin Exam Present: dry, warm - Routine Neurological Exam Present: alert, oriented X3, CN II-XII intact, moving all extremities, vision grossly intact, hearing grossly intact, normal speech. Absent: motor deficit, altered mental status - Routine Psychiatric Exam Present: normal affect, normal thought process, cooperative Results - Labs CBC & Chem 7: 08/23/17 04:40 08/23/17 04:40 Microbiology Results: Microbiology 08/12/17 17:18 Peritoneum Gram Stain - Final 08/12/17 17:18 Peritoneum Surgical Culture - Final Group G Streptococcus Escherichia coli Anaerobic Gram-Negative Robert Assessment and Plan (1) Abdominal pain Current visit: Yes Status: Acute (2) Anemia Current visit: Yes Status: Acute (3) Colorectal cancer Current visit: Yes Status: Acute (4) Hypokalemia Current visit: Yes Status: Resolved Assessment and Plan: Impression Colorectal cancer with perforated sigmoid colon Status post colostomy placement Peritonitis Acute blood loss anemia-received 1 unit of blood on 08/11, 08/12, and 08/14 Abdominal pain - improving Ileus post operatively - appears to have resolved, passing flatus Acute hypoxic respiratory failure - Resolved Weight loss/malnutrition (present on admission) Leukocytosis with bandemia - secondary to G-CSF Recent adjuvant chemotherapy-currently on G - CSF per oncology recommendations Tachycardia Hypophosphatemia - resolved Hypocalcemia - improved, corrected calcium is normal Plan Continue with antimicrobial coverage - WBC with gradual decrease. Continue with IV nutritional support. NG continues (clamped currently) - flatus with minimal bowel sounds. Continue pain control. Encourage increasing mobility. Case discussed with CCU nursing and Dr Jones last night. Time spent with patient care 25 minutes. DVT Prophylaxis: SCD's Resuscitation Status: Full Code - Time spent with patient Time with patient PN: 25 minutes - Physician Narrative Physician: Holger Gaines MD Narrative: Date: 08/23/17 Time: 1035 Hospital Course Summary Disclaimer: The visit summary below is not to be considered part of the above Progress Note.
--- NOTE | 2017-08-23 12:11 | Progress Note ---
DATE OF SERVICE 08/23/2017 FINDINGS Mr. Belcher was in better spirits this morning. He was sitting in his chair. VITAL SIGNS: Afebrile, normotensive. He remains slightly tachycardic. EXAM ABDOMEN: Soft. Minimal incisional tenderness. Fair amount of stool and air are present within his colostomy. LABORATORY/RADIOGRAPHIC EVALUATION White count continues on a downward trend after discontinuing his Neupogen. White count is 22.5. Hemoglobin stable at 0.8. CMP obtained and found to be without marked abnormalities. ASSESSMENT 31-year-old gentleman status post drainage of multiple intraabdominal abscesses , creation of end colostomy and mucous fistula secondary to perforated metastatic rectal cancer. Overall, patient is making slow improvement. PLAN Will continue with current care at this time. [facility]
[2017-08-23] MEDS: MULTI-VIT INFUSION 10 ML, MULTI-TRACE ELEMENTS 1 ML in PPN - STANDARD FORMULA 2,000 ML IV SCH (14:04)
[2017-08-23] MEDS: ENOXAPARIN 40 MG/0.4 ML INJECTION SQ SCH (14:05)
[2017-08-23] MEDS: PANTOPRAZOLE 40 MG INJECTION IVP SCH ×2 (14:05→20:46)
[2017-08-23] MEDS: FAT EMULSION 20% 500 ML IV SCH (18:15)
[2017-08-23] MEDS: SALINE FLUSH 10ml SYRINGE IVF PRN ×2 (20:46→22:28)
[2017-08-23] MEDS: NS 1,000 ML IV SCH ×2 (20:47→21:32)
[2017-08-24] MEDS: PIPERACILLIN/TAZOBACTAM 3.375 GM in NS 50 ML IV SCH ×4 (02:45→20:00)
[2017-08-24] MEDS: PANTOPRAZOLE 40 MG INJECTION IVP SCH ×2 (09:17→20:00)
[2017-08-24] MEDS: ENOXAPARIN 40 MG/0.4 ML INJECTION SQ SCH (10:35)
[2017-08-24] MEDS: FLUCONAZOLE PB 400 MG/200 ML BAG IV SCH (10:35)
[2017-08-24] MEDS: MULTI-VIT INFUSION 10 ML, MULTI-TRACE ELEMENTS 1 ML in PPN - STANDARD FORMULA 2,000 ML IV SCH (11:50)
--- NOTE | 2017-08-24 15:25 | Progress Note ---
- Date 08/24/17 Subjective: F/U: Perforated adenocarcinoma involving rectosigmoid junction with development of multiple intraabdominal abscesses and associated small bowel obstruction. Coverage for Dr Jones Doing better! NG clamped since yesterday-not having increased nausea or bloating. Taking sips and small portions of applesauce without problems. Feels abdominal pain controlled-does have increase in pain if he coughs. Also, pain increases with transfer activities. Has been up more-strength decreased. Breathing well. Good urine output. Notes problems sleeping at night-lorazepam not helping. Objective Vital signs: Temperature 98.9 F 08/24/17 08:00 Pulse Rate 103 H 08/24/17 12:00 Respiratory Rate 20 08/24/17 12:00 Blood Pressure 142/79 H 08/24/17 09:09 Pulse Oximetry 96 08/24/17 10:00 Height/Weight/BMI: Height 1.88 m Weight 87.1 kg Body Mass Index 27.0 - Constitutional Present: well nourished, well developed, average body habitus, cooperative - Routine HEENT Exam Head: Present: normocephalic, atraumatic Eye: Present: EOMI, PERRL - Routine Respiratory Exam Present: CTA bilaterally. Absent: rales, respiratory distress, rhonchi, stridor , wheezes - Routine Cardiovascular Exam Present: tachycardia (Regular) - Routine Abdominal Exam Present: soft, normoactive bowel sounds, tenderness (Minimal tenderness) - Routine Exam Comments: Edwards present - Routine Extremities Exam Present: no edema. Absent: cyanosis, clubbing - Routine Skin Exam Present: dry, warm - Routine Neurological Exam Present: alert, oriented X3, CN II-XII intact, moving all extremities, vision grossly intact, hearing grossly intact, normal speech. Absent: motor deficit, altered mental status - Routine Psychiatric Exam Present: normal affect, normal thought process, cooperative. Absent: anxious Results - Labs CBC & Chem 7: 08/24/17 05:04 08/24/17 05:04 Microbiology Results: Microbiology 08/12/17 17:18 Peritoneum Gram Stain - Final 08/12/17 17:18 Peritoneum Surgical Culture - Final Group G Streptococcus Escherichia coli Anaerobic Gram-Negative Robert Assessment and Plan (1) Abdominal pain Current visit: Yes Status: Acute (2) Anemia Current visit: Yes Status: Acute (3) Colorectal cancer Current visit: Yes Status: Acute (4) Hypokalemia Current visit: Yes Status: Resolved Assessment and Plan: Impression Colorectal cancer with perforated sigmoid colon Status post colostomy placement Peritonitis Acute blood loss anemia-received 1 unit of blood on 08/11, 08/12, and 08/14 Abdominal pain - improving Ileus post operatively - improving. Acute hypoxic respiratory failure - Resolved Weight loss/ severe protein-calorie malnutrition (present on admission) Leukocytosis with bandemia - secondary to G-CSF Recent adjuvant chemotherapy Tachycardia Hypophosphatemia - resolved Hypocalcemia Plan Continue with antimicrobial coverage - WBC continues to gradually decline. Continue with IV nutritional support. Oral intake still very minimal. Resolving ileus precludes use of gut at this time. NG clamped - likely able to remove in near future if nausea and bloating controlled. Continue pain control. Will try Ambien 10mg at night as needed for sleep - monitor for side effects. Continue to work on mobility and strength. Anticipate Dr Jones's return in am. Case discussed with CCU nursing . Time spent with patient care 25 minutes. DVT Prophylaxis: Lovenox Resuscitation Status: Full Code - Time spent with patient Time with patient PN: 25 minutes - Physician Narrative Physician: Holger Gaines MD Narrative: Date: 08/24/17 Time: 1522 Hospital Course Summary Disclaimer: The visit summary below is not to be considered part of the above Progress Note.
[2017-08-24] MEDS ORDERED: ZOLPIDEM 10 MG TABLET PO PRN (15:31)
[2017-08-24] MEDS: FAT EMULSION 20% 500 ML IV SCH (15:56)
[2017-08-24] MEDS: SALINE FLUSH 10ml SYRINGE IVF PRN (20:00)
[2017-08-24] MEDS: NS 1,000 ML IV SCH (21:47)
[2017-08-25] MEDS: ALBUTEROL 2.5mg/3ml (0.083%) NEB IPPB SCH (01:35)
[2017-08-25] MEDS: PIPERACILLIN/TAZOBACTAM 3.375 GM in NS 50 ML IV SCH ×2 (02:55→08:28)
[2017-08-25] MEDS: MULTI-VIT INFUSION 10 ML, MULTI-TRACE ELEMENTS 1 ML in PPN - STANDARD FORMULA 2,000 ML IV SCH ×2 (03:44→09:47)
--- NOTE | 2017-08-25 08:59 | Progress Note ---
DATE OF VISIT 08/24/2017 REASON FOR VISIT Covering surgical care for Dr. Russell. SUBJECTIVE Alexis is doing okay. He has been taking some liquids without problems. His NG tube has been clamped since yesterday. He denies any significant problems. OBJECTIVE VITAL SIGNS: Afebrile, pulse 106, respiratory rate 40. GENERAL: The patient is awake and alert in no acute distress. ABDOMEN: Soft, appropriately tender. His ostomy has loose stool output. His drain has serous drainage. ASSESSMENT 1. Status post exploratory laparotomy with end colostomy and mucous fistula formation for perforated metastatic rectal cancer - slow clinical improvement. 2. Postoperative ileus - tolerating some liquid diet. PLAN 1. Continue parenteral nutrition until oral intake improves. 2. I encouraged him to work on more oral intake prior to discontinuation of his NG tube. His NG tube can remain clamped. MTDD
[2017-08-25] MEDS: SODIUM CHLORIDE IV SCH (09:00)
[2017-08-25] MEDS: [UNRECOGNIZED DRUG - OTHER] IV SCH (09:00)
[2017-08-25] MEDS: POTASSIUM CHLORIDE IV SCH (09:00)
[2017-08-25] MEDS: SODIUM ACETATE IV SCH (09:00)
[2017-08-25] MEDS: PANTOPRAZOLE 40 MG INJECTION IVP SCH ×2 (09:20→22:16)
--- NOTE | 2017-08-25 09:38 | ID Progress Note ---
Subjective Date: 08/25/17 Subjective: Mr. Belcher reports that he's feeling better. His pain is better. He ate some mashed potatoes last night and is getting ready to order breakfast this am. Is passing flatus. He's been getting up some the past 1-2 days, feels somewhat lightheaded with that. Still has a julio. Denies fevers or chills. Exam Vital Signs: Temperature 99.2 F 08/25/17 04:00 Pulse Rate 120 H 08/25/17 09:08 Respiratory Rate 21 08/25/17 09:33 Blood Pressure 138/69 08/25/17 09:08 Pulse Oximetry 97 08/25/17 09:08 Height/Weight/BMI: Height 1.88 m Weight 83.1 kg Body Mass Index 27.0 - Constitutional Present: no acute distress, well nourished, well developed - Routine HEENT Exam Head: Present: normocephalic, atraumatic Eye: Present: EOMI, PERRL ENT: Present: mucous membranes moist, oropharynx clear, dentition normal Comments: NGT in place - Routine Neck Exam Present: supple - Routine Respiratory Exam Present: CTA bilaterally - Routine Cardiovascular Exam Present: RRR, tachycardia - Routine Abdominal Exam Present: soft, non distended, non tender, ostomy Comments: hypoactive bowel sounds. Incisions healing appropriately. 2 JPs R side, 1 MANUELITO on L side - Routine Exam Comments: Julio in place - Routine Extremities Exam Absent: cyanosis, clubbing, edema - Routine Skin Exam Present: intact. Absent: rash - Routine Neurological Exam Present: alert, oriented X3, CN II-XII intact. Absent: motor deficit - Routine Psychiatric Exam Present: normal affect Results - Labs CBC & Chem 7: 08/25/17 05:10 08/25/17 05:10 Microbiology Results: Microbiology 08/12/17 17:18 Peritoneum Gram Stain - Final 08/12/17 17:18 Peritoneum Surgical Culture - Final Group G Streptococcus Escherichia coli Anaerobic Gram-Negative Robert - Impressions CT A/P 08/21: Impression: 1. Significantly dilated small bowel could represent a small bowel obstruction due to inflammatory adhesions given the severely inflamed distal aspect of the colon nearby to these dilated loops in the lower right abdomen and pelvis. Alternatively the findings could represent a severe ileus given the history of recent surgery and the prominent gas-filled appearance of the right and transverse colon. 2. Severely inflamed and edematous sigmoid colon. Differential considerations include infectious, inflammatory and ischemic colitis. 3. Left pelvic abscess with a drain within it. 4. Anasarca Impression: Sepsis secondary to GI source Rectal cancer causing obstruction and perforation with peritonitis, s/p exploratory laparotomy, creation of end colostomy 08/12/17, wound culture with E. coli, Group G Strep, and anaerobic GNR. Metastatic rectal cancer, s/p chemotherapy 08/06/17 Leukocytosis, improving Fever, improved Tachycardia Anemia, microcytic L pelvic abscess on CT 08/21 Postoperative ileus Recommendation: Will narrow Zosyn to Unasyn. Will change fluconazole to po. I'd recommend continuing antibiotics for another week or so and repeating a CT to make sure the pelvic abscess resolved. Recommend removing julio as soon as feasible. He could be changed to Augmentin 875mg po bid on discharge.
[2017-08-25] MEDS: FLUCONAZOLE PB 400 MG/200 ML BAG IV SCH (09:48)
[2017-08-25] MEDS: ENOXAPARIN 40 MG/0.4 ML INJECTION SQ SCH (09:48)
[2017-08-25] MEDS: AMPICILLIN/SULBACTAM 3 G in NS 100 ML IV SCH ×3 (11:18→23:50)
--- NOTE | 2017-08-25 13:16 | Pharmacy Consult-TPN/PPN ---
Pharmacy Consult-TPN/PPN - Laboratory Information Chemistry Turbidity < 20 (0-20) 08/25/17 05:10 Sodium 137 MEQ/L (134-144) 08/25/17 05:10 Potassium 3.9 MEQ/L (3.6-5) 08/25/17 05:10 Chloride 102 MEQ/L (98-107) 08/25/17 05:10 Carbon Dioxide 23 MEQ/L (22-30) 08/25/17 05:10 Anion Gap 12 MEQ/L (5-15) 08/25/17 05:10 BUN 11.0 MG/DL (9-20) 08/25/17 05:10 Creatinine 0.5 mg/dL (0.8-1.5) L 08/25/17 05:10 GFR Calculation 195 08/25/17 05:10 BUN/Creatinine Ratio 22 RATIO (6-26) 08/25/17 05:10 Glucose 130 MG/DL (75-110) H 08/25/17 05:10 Glucometer 116 mg/dL (65-110) 08/24/17 15:52 Calculated Osmolality 265 MOSM/KG (261-280) 08/25/17 05:10 Calcium 8.2 MG/DL (8.4-10.2) L 08/25/17 05:10 Phosphorus 4.2 MG/DL (2.5-4.5) 08/25/17 05:10 Magnesium 2.1 MG/DL (1.6-2.3) 08/25/17 05:10 Total Bilirubin 0.80 MG/DL (0.20-1.30) 08/25/17 05:10 Icterus Index < 2 (0-7) 08/25/17 05:10 AST 36 U/L (17-59) 08/25/17 05:10 ALT 24 U/L (1-50) 08/25/17 05:10 Alkaline Phosphatase 192 U/L (38-126) H 08/25/17 05:10 Troponin I < 0.012 ng/ml (0-0.12) 08/11/17 00:49 Total Protein 6.6 g/dL (6.3-8.2) 08/25/17 05:10 Albumin 2.8 g/dL (3.5-5.0) L 08/25/17 05:10 Globulin 3.8 G/DL (2.4-3.6) H 08/25/17 05:10 Albumin/Globulin Ratio 0.7 RATIO (1.1-2.2) L 08/25/17 05:10 Prealbumin 6.0 mg/dL (17.6-36.0) L 08/22/17 04:37 Plasma Lactate 1.8 MMOL/L (0.6-2.2) 08/12/17 07:48 Specimen Hemolysis < 15 (0-25) 08/25/17 05:10 Intake and Output 08/24/17 08/25/17 08/26/17 06:59 06:59 06:59 Intake Total 4408.332 / 4408.332 3784.334 / 3784.334 1072.667 / 1072.667 Output Total 3500 / 3500 2725 / 2725 1575 / 1575 Balance 908.332 / 879.147 9034.334 / 1059.334 -502.333 / -502.333 Weight 83.1 kg Intake: IV 4248.332 / 4248.332 3584.334 / 3584.334 1072.667 / 1072.667 Ampicillin/Sulbactam 3 g In Ns 100 / 100 100 ml @ 200 mls/hr IV Q6H [facility] Rx#:[id number] Fat Emulsion 20% 500 ml @ 50 500.0 / 500.0 500.000 / 500.000 mls/hr IV 1600 [facility] Rx#: [id number] Fluconazole Pb 400 mg In 200 ml 200 / 200 200 / 200 111.667 / 111.667 @ 100 mls/hr IV Q24H [facility] Rx#: [id number] Multi-Vit Infusion 10 ml Multi 2700.000 / 2700.000 2134.334 / 2134.334 294.333 / 294.333 -Trace Elements 1 ml In Ppn - Standard Formula 2,000 ml @ 100 mls/hr IV .[id number] [facility] Rx#: [id number] Ns 1,000 ml @ 25 mls/hr IV . 648.332 / 648.332 550.000 / 550.000 116.667 / 116.667 Q24H [facility] Rx#:[id number] Piperacillin/Tazobactam 3.375 200 / 200 200 / 200 50 / 50 gm In Ns 50 ml @ 100 mls/hr IV Q6H [facility] Rx#:[id number] Sodium Chloride Conc 40 meq 400 / 400 Sodium Acetate 40 meq Potassium Chloride Inj 40 meq POTASSIUM PHOSPHATE (mEq) 40 meq Calcium Gluconate 9.3 meq Magnesium Sulfate Inj 16 meq Multi-Vit Infusion 10 ml Multi-Trace Elements 1 ml In Ppn - Custom Formula 2,000 ml @ 100 mls/hr IV .[id number] [facility] Rx#:[id number] Oral 160 / 160 200 / 200 Output: Stool 50 / 50 100 / 100 Urine Amount (Catheter) 3450 / 3450 2725 / 2725 1475 / 1475 Other: Urine Appearance Clear Clear Urine Color Yellow Dark Yellow Stool Characteristics Mucoid Stool Color Brown Stool Consistency Liquid Size of Bowel Movement Small # Incontinent Bowel Movements 1 - Consult Information Kept with the same formulation and electrolyte pattern as yesterday's PPN. Due to the nationwide shortage, we used a custom bag and added the electrolytes. The standard formulation arrived about an hour after preparing today's bag so will go back to the the standard bag tomorrow. Thank you.
--- NOTE | 2017-08-25 13:38 | Progress Note ---
DATE 08/25/2017 FINDINGS Alexis was in good spirits this morning. He states he was having less pain. He is requesting to have his NG removed. The patient states that they clamped his NG on Friday evening and he has tolerated this without difficulty. He has had no nausea or vomiting. VITALS: Afebrile. Normotensive. Remains slightly tachycardic. CHEST: Clear to auscultation bilaterally. HEART: Regular rate and rhythm. Normal S1 and S2 without gallops, murmurs or clicks. ABDOMEN: Visualization of the abdomen reveals his prior midline incision to be healing without difficulty. I do not see any evidence for marked erythema. Palpation of the abdomen reveals some minimal incisional tenderness. No evidence for guarding or rebound. There is a fair amount of stool present within his colostomy. His abdomen is significantly less distended. LABORATORY/RADIOGRAPH EVALUATION The patient's white count continues on a downward trend to 16,000 after discontinuation of his Neupogen. Hemoglobin stable at 8.3. BMP without marked abnormalities. I do see that new microbiology results are present. He has group G Strep, E-coli and anaerobic gram-negative rods. The patient was seen today by Infectious Disease. ID has narrowed Zosyn to Unasyn and has switched fluconazole to p.o. ASSESSMENT 31-year-old gentleman status post exploratory laparotomy with creation of end colostomy and mucous fistula secondary to perforated, near-obstructed metastatic rectal cancer. Patient making slow progress. PLAN Antibiotics have been changed as above per Infectious Disease. Will go ahead and discontinue NG today. Will advance diet as tolerated. Will continue to monitor the patient closely. Hopefully, the patient will be able to be transferred out to the floor within the next 24-48 hours. He does state that he has been moving "a little better." When the patient is able to move to a greater extent, we'll discontinue Edwards in the near future as well. [facility]
[2017-08-25] MEDS: FAT EMULSION 20% 500 ML IV SCH (16:45)
--- NOTE | 2017-08-25 17:31 | Internal Med Progress Note ---
Internal Medicine Subjective Patient was seen and examined in the ICU. Family at the bedside. Alexis appears much improved. He was able to ambulate to the door and then back to the ICU earlier today. He is getting his appetite back. I did advance his diet today. He says his abdomen feels a little bit tight but nothing like it did last week. He is having good urine output and has been passing gas into his ostomy. He was given Ambien last night to help with sleep and indicates that it didn't help much either as compared with the Ativan. He does state that he didn't have the crazy dreams that he did with Ativan. Exam Vital Signs: Temperature 98.8 F 08/25/17 11:28 Pulse Rate 113 H 08/25/17 13:00 Respiratory Rate 38 H 08/25/17 16:00 Blood Pressure 143/83 H 08/25/17 12:38 Pulse Oximetry 97 08/25/17 13:00 Telemetry Rhythm: Sinus Tachycardia Height/Weight/BMI: Height 6 ft 2 in Weight 83.1 kg Body Mass Index 27.0 - Constitutional Present: no acute distress, cooperative - Routine HEENT Exam Head: Present: normocephalic, atraumatic Eye: Present: EOMI, PERRL. Absent: conjunctival icterus, scleral injection, conjunctivae pink ENT: Present: mucous membranes moist, oropharynx clear, nares patent - Routine Neck Exam Absent: lymphadenopathy, thyromegaly - Routine Chest/Breast/Axilla Exam Chest wall: Absent: tenderness Axillae: Absent: lymphadenopathy - Routine Respiratory Exam Present: CTA bilaterally. Absent: accessory muscle use - Routine Cardiovascular Exam Absent: S3, S4 - Routine Abdominal Exam Present: soft, normoactive bowel sounds, tenderness. Absent: rebound, guarding , rigid - Routine Extremities Exam Absent: cyanosis, clubbing, edema - Routine Skin Exam Present: intact, dry. Absent: cyanosis, erythema, mottling, petechiae, urticaria, jaundice - Routine Neurological Exam Present: alert, oriented X3, CN II-XII intact - Routine Psychiatric Exam Present: normal affect, normal thought process, cooperative, good insight, good judgment. Absent: depressed, anxious Internal Medicine Results - Labs CBC & Chem 7: 08/25/17 05:10 08/25/17 05:10 Labs: Short CBC 08/25/17 Range/Units 05:10 WBC 16.0 H (4.5-11.0) T/MM3 Hgb 8.3 L (13.5-17.5) GM/DL Hct 27.2 L (41-53) % Plt Count 349 (130-400) T/MM3 BMP 08/25/17 05:10 Sodium 137 Potassium 3.9 Chloride 102 Carbon Dioxide 23 BUN 11.0 Creatinine 0.5 L Glucose 130 H Calcium 8.2 L Liver Function 08/25/17 Range/Units 05:10 Total Bilirubin 0.80 (0.20-1.30) MG/DL AST 36 (17-59) U/L ALT 24 (1-50) U/L Alkaline Phosphatase 192 H (38-126) U/L Albumin 2.8 L (3.5-5.0) g/dL Progress Note-A&P - Time Spent With Patient Total time spent is greater than 50% in coordination of care (as documented) at patient's floor/unit and/or counseling patient: greater than 35 minutes (1) Abdominal pain Status: Acute Assessment and plan: Surgical consultation with Dr. Russell. Postoperative abdominal pain is a little bit better today Current Visit: Yes (2) Anemia Status: Acute Assessment and plan: Hemoglobin is 8; a little less than yesterday Current Visit: Yes (3) Colorectal cancer Status: Acute Assessment and plan: He has had one round of adjuvant chemotherapy last week Current Visit: Yes (4) Weight loss, unintentional Status: Acute Current Visit: Yes (5) Acute blood loss anemia Status: Acute Current Visit: Yes (6) Perforated sigmoid colon Status: Acute Current Visit: Yes (7) Status post colostomy Status: Acute Current Visit: Yes (8) Protein-calorie malnutrition, severe Status: Acute Assessment and plan: Slowly improving Current Visit: Yes (9) Hypophosphatemia Status: Resolved Current Visit: Yes (10) Hypokalemia Status: Resolved Current Visit: Yes - Assessment and Plan I will try him on mirtazapine tonight and hopefully to stimulate his appetite help him sleep and even help with a little depression. We will encourage increased activity and ambulation. This will also help his bowel function. Hopefully, we can transfer him out of the ICU in the next day or so. Hospital Course Summary Disclaimer: The visit summary below is not to be considered part of the above Progress Note.
[2017-08-25] MEDS: NS 1,000 ML IV SCH (18:18)
[2017-08-25] MEDS: MIRTAZAPINE 15 MG TABLET PO SCH (22:16)
[2017-08-26] MEDS: MULTI-VIT INFUSION 10 ML, MULTI-TRACE ELEMENTS 1 ML in PPN - STANDARD FORMULA 2,000 ML IV SCH (05:11)
[2017-08-26] MEDS: POTASSIUM CHLORIDE IV SCH (05:12)
[2017-08-26] MEDS: [UNRECOGNIZED DRUG - OTHER] IV SCH (05:12)
[2017-08-26] MEDS: SODIUM ACETATE IV SCH (05:12)
[2017-08-26] MEDS: SODIUM CHLORIDE IV SCH (05:12)
[2017-08-26] MEDS: AMPICILLIN/SULBACTAM 3 G in NS 100 ML IV SCH ×2 (05:13→11:03)
[2017-08-26] MEDS: FLUCONAZOLE 100 MG TABLET PO SCH (08:39)
[2017-08-26] MEDS: PANTOPRAZOLE 40 MG INJECTION IVP SCH ×2 (08:39→22:02)
[2017-08-26] MEDS: ENOXAPARIN 40 MG/0.4 ML INJECTION SQ SCH (08:39)
--- NOTE | 2017-08-26 15:18 | Wound Care Progress Note ---
Wound Center Progress Note: Pt seen for ostomy follow up. Pt resting in bed, watching TV, no complaints of pain. Pt reports nurses changed the pouching system yesterday. Pouching system is secure with a good seal, no leaks. Bag is 1/2 full with soft brown odorous stool. Pt states he has been burping the bag himself, has been watching the nurses change the pouch, but has not changed the pouching system himself. Encouraged pt for next ostomy appliance change to assist and/or demonstrate changing pouching system himself with supervision PRN. Had further discussions concerning: gas, odor control, peristomal skin care, how and when to change the pouch, food choices, and exercise. I spoke with Anna, she will be ordering pouch deodorizer/lubricate for the pt. Pt signed [employer] registration card to give permission for supplies to be sent to his home. Will visit with pt Friday or to assist with complete ostomy appliance change. Stoma and peristomal skin not visualized at this time, will assess with ostomy appliance change at next visit.
[2017-08-26] MEDS: FAT EMULSION 20% 500 ML IV SCH (15:55)
[2017-08-26] MEDS: SULBACTAM IV SCH ×2 (17:15→22:02)
[2017-08-26] MEDS: AMPICILLIN IV SCH ×2 (17:15→22:02)
[2017-08-26] MEDS: NS IV SCH ×2 (17:15→22:02)
[2017-08-26] MEDS: NS 1,000 ML IV SCH ×7 (17:22→18:29)
--- NOTE | 2017-08-26 17:53 | Internal Med Progress Note ---
Internal Medicine Subjective Patient was seen and examined in the ICU. Family at the bedside. Alexis was able to transfer to the surgery floor today. His Edwards catheter is out and he ambulated down to the nurses station and back to his room. He is also made multiple trips to the bathroom today. His appetite is better. He had a cheeseburger this evening. If he continues to progress at this rate I would consider discharging him home the next few days. I would want Dr. Russell's approval prior to discharging him and he would need to have a follow-up appointment with Dr. Collins of oncology to see when we can resume his chemotherapy.. Exam Vital Signs: Temperature 97.0 F 08/26/17 16:00 Pulse Rate 111 H 08/26/17 16:00 Respiratory Rate 16 08/26/17 16:00 Blood Pressure 120/72 08/26/17 16:00 Pulse Oximetry 97 08/26/17 16:00 Telemetry Rhythm: Sinus Tachycardia Height/Weight/BMI: Height 6 ft 2 in Weight 81.4 kg Body Mass Index 27.0 - Constitutional Present: no acute distress - Routine HEENT Exam Head: Present: normocephalic, atraumatic Eye: Present: EOMI. Absent: conjunctival icterus, scleral injection, conjunctivae pink ENT: Present: mucous membranes moist, oropharynx clear, nares patent - Routine Abdominal Exam Present: soft, normoactive bowel sounds, distended (mild), ostomy. Absent: rebound, guarding, rigid - Routine Extremities Exam Absent: cyanosis, clubbing, edema - Routine Skin Exam Present: intact, dry. Absent: mottling, petechiae, urticaria, jaundice - Routine Neurological Exam Present: alert, oriented X3, CN II-XII intact - Routine Psychiatric Exam Present: normal affect, normal thought process, cooperative, good insight, good judgment. Absent: depressed, anxious Internal Medicine Results - Labs CBC & Chem 7: 08/26/17 04:28 08/26/17 04:28 Labs: Short CBC 08/26/17 Range/Units 04:28 WBC 11.7 H (4.5-11.0) T/MM3 Hgb 8.2 L (13.5-17.5) GM/DL Hct 27.4 L (41-53) % Plt Count 327 (130-400) T/MM3 BMP 08/26/17 04:28 Sodium 137 Potassium 3.7 Chloride 102 Carbon Dioxide 23 BUN 11.0 Creatinine 0.4 L Glucose 125 H Calcium 8.1 L Liver Function 08/26/17 Range/Units 04:28 Total Bilirubin 0.50 (0.20-1.30) MG/DL AST 45 (17-59) U/L ALT 31 (1-50) U/L Alkaline Phosphatase 212 H (38-126) U/L Albumin 2.9 L (3.5-5.0) g/dL Progress Note-A&P - Time Spent With Patient Total time spent is greater than 50% in coordination of care (as documented) at patient's floor/unit and/or counseling patient: greater than 35 minutes (1) Abdominal pain Status: Acute Assessment and plan: Patient appears to be improving every day. Current Visit: Yes (2) Anemia Status: Acute Assessment and plan: Hemoglobin is 8; a little less than yesterday Current Visit: Yes (3) Colorectal cancer Status: Acute Assessment and plan: He has had one round of adjuvant chemotherapy last week Current Visit: Yes (4) Weight loss, unintentional Status: Acute Current Visit: Yes (5) Acute blood loss anemia Status: Acute Current Visit: Yes (6) Perforated sigmoid colon Status: Acute Current Visit: Yes (7) Status post colostomy Status: Acute Current Visit: Yes (8) Protein-calorie malnutrition, severe Status: Acute Assessment and plan: Improving. He is now eating and with a better appetite. Current Visit: Yes (9) Hypophosphatemia Status: Resolved Current Visit: Yes (10) Hypokalemia Status: Resolved Current Visit: Yes Hospital Course Summary Disclaimer: The visit summary below is not to be considered part of the above Progress Note.
--- NOTE | 2017-08-26 20:12 | Progress Note ---
DATE OF SERVICE 08/26/2017 FINDINGS Alexis states that overall he is feeling slightly better. He is concerned about some mucus discharge from his anal region. He is requesting to take a shower. EXAM VITAL SIGNS: Remains tachycardic. ABDOMEN: Soft, nontender. Colostomy contains stool and air. LABORATORY/RADIOGRAPHIC EVALUATION The patient's white count continues on a downward trend and is 11.7 today. Hemoglobin stable at 8.2. CMP without marked abnormalities. Alkaline phosphatase is elevated to 12, most likely a result of his significant known metastatic disease. ASSESSMENT 31-year-old gentleman status post exploratory laparotomy with creation of end colostomy and mucous fistula secondary to perforated metastatic rectal cancer. Patient making improvement. PLAN Will go ahead and do calorie count. If the patient is taking adequate p.o., will DC TPN/PPN. Will allow the patient to shower tomorrow. Perhaps on of this week we will repeat a CT scan of his abdomen and pelvis in regards to this fluid collection within his pelvis. Last CT scan was performed on the . I would not recommend removing drains until documenting that this fluid collection/abscess within pelvis has resolved. MTDD
[2017-08-26] MEDS: MIRTAZAPINE 15 MG TABLET PO SCH (22:03)
[2017-08-27] MEDS: MULTI-VIT INFUSION 10 ML, MULTI-TRACE ELEMENTS 1 ML in PPN - STANDARD FORMULA 2,000 ML IV SCH ×3 (00:01→22:04)
[2017-08-27] MEDS: SULBACTAM IV SCH ×5 (04:10→23:16)
[2017-08-27] MEDS: NS IV SCH ×5 (04:10→23:16)
[2017-08-27] MEDS: AMPICILLIN IV SCH ×5 (04:10→23:16)
[2017-08-27] MEDS: NS 1,000 ML IV SCH ×2 (06:04→06:52)
--- NOTE | 2017-08-27 08:45 | ID Progress Note ---
Subjective Date: 08/27/17 Subjective: He denies any problems. Had some abdominal pain, but states he's been changed to oral pain meds. Working on eating enough so the TPN can be stopped. Urinating on his own without problems. NGT is out. Exam Vital Signs: Temperature 99.0 F 08/27/17 07:00 Pulse Rate 106 H 08/27/17 07:11 Respiratory Rate 18 08/27/17 07:00 Blood Pressure 131/76 08/27/17 07:00 Pulse Oximetry 97 08/27/17 07:00 Height/Weight/BMI: Height 1.88 m Weight 81.4 kg Body Mass Index 27.0 - Constitutional Present: no acute distress, well nourished, well developed - Routine HEENT Exam Head: Present: normocephalic, atraumatic Eye: Present: EOMI, PERRL ENT: Present: mucous membranes moist, dentition normal - Routine Neck Exam Present: supple - Routine Respiratory Exam Present: CTA bilaterally - Routine Cardiovascular Exam Present: RRR - Routine Abdominal Exam Present: soft, normoactive bowel sounds, non distended, non tender, ostomy Comments: abdominal incisions nearly healed. Drains still in place - Routine Extremities Exam Absent: cyanosis, clubbing, edema - Routine Skin Exam Present: intact. Absent: rash Comments: Port R chest without redness - Routine Neurological Exam Present: alert, oriented X3, CN II-XII intact. Absent: motor deficit - Routine Psychiatric Exam Present: normal affect Results - Labs CBC & Chem 7: 08/27/17 04:14 08/27/17 04:14 Microbiology Results: Microbiology 08/12/17 17:18 Peritoneum Gram Stain - Final 08/12/17 17:18 Peritoneum Surgical Culture - Final Group G Streptococcus Escherichia coli Anaerobic Gram-Negative Robert Impression: Sepsis secondary to GI source Rectal cancer causing obstruction and perforation with peritonitis, s/p exploratory laparotomy, creation of end colostomy 08/12/17, wound culture with E. coli, Group G Strep, and anaerobic GNR. Metastatic rectal cancer, s/p chemotherapy 08/06/17 Leukocytosis, improving Fever, improved Tachycardia Anemia, microcytic L pelvic abscess on CT 08/21 Postoperative ileus, improving Recommendation: Continue Unasyn and oral fluconazole. Agree with repeating a CT soon to make sure the pelvic abscess is resolved. He could be changed to Augmentin 875mg po bid on discharge, however, once the pelvic abscess is noted to be resolved then the antibiotics/antifungal can be stopped shortly thereafter.
[2017-08-27] MEDS: HYDROCODONE/APAP 5mg/325mg TABLET PO PRN ×2 (09:23→18:17)
[2017-08-27] MEDS: FLUCONAZOLE 100 MG TABLET PO SCH (09:24)
[2017-08-27] MEDS: PANTOPRAZOLE 40 MG INJECTION IVP SCH ×2 (09:24→20:47)
[2017-08-27] MEDS: ENOXAPARIN 40 MG/0.4 ML INJECTION SQ SCH (09:24)
--- NOTE | 2017-08-27 14:12 | Progress Note ---
DATE 08/27/2017 FINDINGS Alexis was seen this morning on rounds. He was without complaints. OBJECTIVE VITALS: Afebrile. Normotensive. Remains slightly tachycardic. CHEST: Clear to auscultation bilaterally. HEART: Regular rate and rhythm. Normal S1, S2, without gallops, murmurs or clicks. ABDOMEN: Soft, nontender. Incision clean, dry, and intact. Fair amount of stool present within colostomy. LABORATORY/RADIOGRAPHIC EVALUATION The patient had a CBC and BMP obtained today that was without marked abnormalities. ASSESSMENT Status post exploratory laparotomy, creation of end colostomy and mucous fistula secondary to perforated metastatic rectal cancer. Patient making good improvement. PLAN We did initiate calorie count. If patient can demonstrate that he is taking enough caloric intake, will DC PPN/TPN. Will switch IV antibiotics to p.o. antibiotics in near future. Will work towards possible discharge later this week. Will repeat CT scan in regards to pelvic fluid collection/possible abscess. Overall patient making good improvement. DAVE
[2017-08-27 14:57] VITALS: BMI 25.0
[2017-08-27] MEDS: FAT EMULSION 20% 500 ML IV SCH (16:33)
--- NOTE | 2017-08-27 17:01 | Internal Med Progress Note ---
Internal Medicine Subjective Patient seen and examined in his room. Family at the bedside. He continues to improve. He was able to take a shower today and he was also able to ambulate down to the nurses station and beyond and then back to his room. His appetite is not as robust as it was yesterday but he states that he still ate. Surgery note reviewed and appreciated. If his CT demonstrates resolution of the abdominal abscess and he continues to improve with his oral intake and ambulation I'm hopeful that we can get him home by Friday. Exam Vital Signs: Temperature 96.5 F L 08/27/17 15:42 Pulse Rate 109 H 08/27/17 16:00 Respiratory Rate 18 08/27/17 15:42 Blood Pressure 145/89 H 08/27/17 15:42 Pulse Oximetry 98 08/27/17 15:42 Telemetry Rhythm: Sinus Rhythm Height/Weight/BMI: Height 6 ft 2 in Weight 88.5 kg Body Mass Index 25.0 - Constitutional Present: no acute distress, cooperative - Routine HEENT Exam Head: Present: normocephalic, atraumatic Eye: Absent: conjunctival icterus, scleral injection, conjunctivae pink ENT: Present: mucous membranes moist, oropharynx clear, nares patent - Routine Neck Exam Present: supple. Absent: lymphadenopathy, thyromegaly - Routine Respiratory Exam Present: accessory muscle use, CTA bilaterally - Routine Cardiovascular Exam Present: RRR. Absent: S3, S4 - Routine Abdominal Exam Present: soft, normoactive bowel sounds, tenderness, non distended, ostomy. Absent: rebound, guarding, rigid - Routine Extremities Exam Absent: cyanosis, clubbing, edema - Routine Skin Exam Present: pallor. Absent: cyanosis, mottling, petechiae, urticaria, jaundice - Routine Neurological Exam Present: oriented X3, CN II-XII intact. Absent: alert (fatigued but awake) - Routine Psychiatric Exam Present: cooperative, good insight, good judgment. Absent: depressed, anxious Internal Medicine Results - Labs CBC & Chem 7: 08/27/17 04:14 08/27/17 04:14 Labs: Short CBC 08/27/17 Range/Units 04:14 WBC 11.9 H (4.5-11.0) T/MM3 Hgb 8.0 L (13.5-17.5) GM/DL Hct 26.4 L (41-53) % Plt Count 328 (130-400) T/MM3 BMP 08/27/17 04:14 Sodium 139 Potassium 3.8 Chloride 104 Carbon Dioxide 23 BUN 11.0 Creatinine 0.4 L Glucose 125 H Calcium 8.2 L Liver Function 08/27/17 Range/Units 04:14 Total Bilirubin 0.50 (0.20-1.30) MG/DL AST 50 (17-59) U/L ALT 35 (1-50) U/L Alkaline Phosphatase 212 H (38-126) U/L Albumin 2.8 L (3.5-5.0) g/dL Progress Note-A&P - Time Spent With Patient Total time spent is greater than 50% in coordination of care (as documented) at patient's floor/unit and/or counseling patient: greater than 35 minutes (1) Abdominal pain Status: Acute Assessment and plan: Patient appears to be improving every day. Current Visit: Yes (2) Anemia Status: Acute Assessment and plan: Hemoglobin is 8; a little less than yesterday Current Visit: Yes (3) Colorectal cancer Status: Acute Assessment and plan: He has had one round of adjuvant chemotherapy last week Current Visit: Yes (4) Weight loss, unintentional Status: Acute Current Visit: Yes (5) Acute blood loss anemia Status: Acute Current Visit: Yes (6) Perforated sigmoid colon Status: Acute Current Visit: Yes (7) Status post colostomy Status: Acute Current Visit: Yes (8) Protein-calorie malnutrition, severe Status: Acute Assessment and plan: Improving. He is now eating and with a better appetite. Current Visit: Yes (9) Hypophosphatemia Status: Resolved Current Visit: Yes (10) Hypokalemia Status: Resolved Current Visit: Yes - Assessment and Plan CT will be planned per surgery team. I will continue his IV nutrition until he leaves the hospital. Hospital Course Summary Disclaimer: The visit summary below is not to be considered part of the above Progress Note.
[2017-08-27] MEDS: SALINE FLUSH 10ml SYRINGE IVF PRN ×2 (20:47→22:24)
[2017-08-27] MEDS: MIRTAZAPINE 15 MG TABLET PO SCH (20:47)
[2017-08-27] MEDS: NS FLUSH BAG 500ml IV PRN (23:16)
[2017-08-28] MEDS: NS IV SCH (05:39)
[2017-08-28] MEDS: AMPICILLIN IV SCH (05:39)
[2017-08-28] MEDS: SALINE FLUSH 10ml SYRINGE IVF PRN ×2 (05:39→20:00)
[2017-08-28] MEDS: SULBACTAM IV SCH (05:39)
[2017-08-28] MEDS: MULTI-VIT INFUSION 10 ML, MULTI-TRACE ELEMENTS 1 ML in PPN - STANDARD FORMULA 2,000 ML IV SCH (06:15)
[2017-08-28] MEDS: FLUCONAZOLE 100 MG TABLET PO SCH (08:55)
[2017-08-28] MEDS: HYDROCODONE/APAP 5mg/325mg TABLET PO PRN ×2 (08:56→16:47)
[2017-08-28] MEDS: ENOXAPARIN 40 MG/0.4 ML INJECTION SQ SCH (08:56)
[2017-08-28] MEDS: PANTOPRAZOLE 40 MG INJECTION IVP SCH (08:57)
--- NOTE | 2017-08-28 10:41 | General Surgery Progress Note ---
Subjective Patient reports: tolerating a regular diet (over 2000 keven per day, will DC TPN when this bag empty (or times out) pharmacy has been notified.), voiding w/o difficulty, bowel movement (soft brown in colostomy. Rosalinda here today giving colostomy teaching, appliance change, etc. Dr. Russell able to see the stoma today with the appliance removed.), other (he's quite anxious about most any type of care. Fears drain removal and became very anxious with staple removal.) - Vital Signs Last Vital Signs Temp 98.3 F 08/28/17 07:45 Pulse 122 H 08/28/17 08:00 Resp 24 08/28/17 07:45 BP 135/77 08/28/17 07:45 Pulse Ox 94 08/28/17 07:45 - Laboratory Result Diagrams: 08/27/17 04:14 08/27/17 04:14 - Abnormal Exam General: mild distress (anxiety regarding staple removal, drain removal, colostomy care) - Normal Exam General: awake, alert Cardiovascular: regular rate Respiratory: no labored breathing Abdominal: soft, incision(s) (brit removed today, YULIANA applied) Psychiatric: other (anxious) Wound/Stoma/Drain Assessment - Stoma Assessment Left Lower Abdomen Bowel Diversion Stoma Type: Colostomy (with mucous fistula) Bowel Diversion Stoma Appearance: Beefy Red, Retracted, Oval Collection Device: Drainable Pouch, Two-piece Stoma Care: Pouch and Wafer Changed (by Rosalinda today) Drainage Description: Soft, Formed, Brown Kelly-Stomal Skin Appearance: Rash Assessment and Plan (1) Perforated sigmoid colon Current Visit: Yes Status: Acute (2) Status post colostomy Current Visit: Yes Status: Acute (3) Acute blood loss anemia Current Visit: Yes Status: Acute (4) Colon obstruction Current Visit: Yes Status: Acute (5) Colorectal cancer Current Visit: Yes Status: Acute Plan: Eating >2000 keven / day, soft diet, TPN to stop when this bag complete. CT abd/pelvis tomorrow with oral and IV contrast. Will change ABX as Dr. Marcum recommended, per Dr. Russell. [place] removed today. Continue colostomy teaching. Hospital Course Summary Disclaimer: The visit summary below is not to be considered part of the above Progress Note.
--- NOTE | 2017-08-28 13:34 | Wound Care Progress Note ---
Wound Center Progress Note: Pt seen for continuing ostomy education. Seen with Mendel Tucker APRN and other nurses. Pt resting in bed, states his abdomen in "tender." Able to visualize stoma at this time. Pt has midline surgical incision, no dressing in place at this time, does not appear to have drainage from incision. Stoma: located in LLQ, red, moist, retracted below skin level, producing soft brown stool, oval shape, sutures visible. Peristomal skin: pink, denuded to left of stoma, no drainage. Pt is concerned with odor control. [employer] Odor Eliminator/Lubricant ordered, [facility] will receive on Friday, and pt will be instructed how to use this product. Crusting technique used, and taught to pt, for peristomal skin care, barrier ring placed around stoma, and 2 pc convex pouch applied. Pt reports he has been watching the nurses change pouching system and has cut the wafer himself earlier. Education given concerning the stoma, peristomal skin care, type of pouching system, need for convexity, use of a belt, and pamphlets left at bedside concerning travel, sex, and activity with an ostomy. Will continue to f/u with additional education PRN. All pt questions answered at this time.
[2017-08-28] MEDS: AMOX/CLAV 875 MG/125 MG TABLET PO SCH ×2 (14:55→20:00)
--- NOTE | 2017-08-28 17:27 | Internal Med Progress Note ---
Internal Medicine Subjective Patient seen and examined in his room. Family at the bedside. He continues to improve. He was able to work with physical therapy and occupational therapy today. He states that he walked down to the nurses station and then beyond it down to the windows and back to his room. His appetite has been good today. He states that he received a half milligram of Ativan last night and it really helped him sleep. I believe the mirtazapine is also helping. He has some anxiety about going home and the ability to transfer from bed to a sitting position effectively. He was not able to do so today with physical therapy. Otherwise, he states that his pain is well controlled. Exam Vital Signs: Temperature 100.9 F H 08/28/17 16:29 Pulse Rate 116 H 08/28/17 16:29 Respiratory Rate 16 08/28/17 16:29 Blood Pressure 141/72 H 08/28/17 16:29 Pulse Oximetry 96 08/28/17 16:29 Telemetry Rhythm: Sinus Tachycardia Height/Weight/BMI: Height 6 ft 2 in Weight 88.6 kg Body Mass Index 25.0 - Constitutional Present: no acute distress, cooperative - Routine HEENT Exam Head: Present: normocephalic, atraumatic Eye: Present: EOMI. Absent: conjunctival icterus, scleral injection, conjunctivae pink - Routine Neck Exam Present: supple. Absent: lymphadenopathy, thyromegaly - Routine Respiratory Exam Present: CTA bilaterally. Absent: accessory muscle use - Routine Cardiovascular Exam Present: no murmur. Absent: RRR, S3, S4 - Routine Abdominal Exam Present: soft, normoactive bowel sounds, tenderness, non distended, ostomy. Absent: rebound, guarding, rigid - Routine Extremities Exam Absent: cyanosis, clubbing, edema, calf tenderness - Routine Skin Exam Present: intact, dry, pallor. Absent: cyanosis, erythema, mottling, petechiae, urticaria, jaundice - Routine Neurological Exam Present: alert, oriented X3, CN II-XII intact - Routine Psychiatric Exam Present: normal affect, cooperative, good insight, good judgment, anxious. Absent: depressed Internal Medicine Results - Labs CBC & Chem 7: 08/28/17 12:26 08/28/17 12:26 Labs: Short CBC 08/28/17 Range/Units 12:26 WBC 12.0 H (4.5-11.0) T/MM3 Hgb 8.0 L (13.5-17.5) GM/DL Hct 26.4 L (41-53) % Plt Count 335 (130-400) T/MM3 BMP 08/28/17 12:26 Sodium 139 Potassium 3.8 Chloride 104 Carbon Dioxide 25 BUN 11.0 Creatinine 0.4 L Glucose 123 H Calcium 8.3 L Liver Function 08/28/17 Range/Units 12:26 Albumin 3.0 L (3.5-5.0) g/dL Progress Note-A&P - Time Spent With Patient Total time spent is greater than 50% in coordination of care (as documented) at patient's floor/unit and/or counseling patient: greater than 35 minutes (1) Abdominal pain Status: Acute Assessment and plan: Patient appears to be improving every day. Current Visit: Yes (2) Anemia Status: Acute Assessment and plan: Hemoglobin is 8; a little less than yesterday Current Visit: Yes (3) Colorectal cancer Status: Acute Assessment and plan: He has had one round of adjuvant chemotherapy last week Current Visit: Yes (4) Weight loss, unintentional Status: Acute Current Visit: Yes (5) Acute blood loss anemia Status: Acute Assessment and plan: Enclosed is still 8 Current Visit: Yes (6) Perforated sigmoid colon Status: Acute Current Visit: Yes (7) Status post colostomy Status: Acute Current Visit: Yes (8) Protein-calorie malnutrition, severe Status: Acute Assessment and plan: Improving. He is now eating and with a better appetite. Current Visit: Yes (9) Hypophosphatemia Status: Resolved Current Visit: Yes (10) Hypokalemia Status: Resolved Current Visit: Yes - Assessment and Plan Alexis scheduled for CT of the abdomen and pelvis tomorrow. Hopefully the abscess seen on the previous CT will be resolved and the drains can be removed. His brit were removed today and he had ostomy care and education presented to them. I hope is that I can discharge him tomorrow but that remains to be seen. Hospital Course Summary Disclaimer: The visit summary below is not to be considered part of the above Progress Note.
[2017-08-28] MEDS: FAT EMULSION 20% 500 ML IV SCH (17:35)
--- NOTE | 2017-08-28 18:06 | Progress Note ---
DATE OF SERVICE 08/28/2017 FINDINGS Mr. Belcher was seen earlier this morning on rounds. EXAM VITAL SIGNS: He did have a low-grade temperature this evening with a temperature 100.9. He remains tachycardic with a pulse of 116. He is normotensive. CHEST: Clear to auscultation bilaterally. HEART: Regular rate and rhythm. Normal S1 and S2 without gallops, murmurs or clicks. ABDOMEN: Surgical incision is healed without difficulty. He was in the process of having his colostomy exchanged earlier this morning when I saw the patient. The colostomy is not as everted as I would like to see but the colostomy is viable and adherent along the skin edges. A mucous fistula is also adherent along the edges and is somewhat "sunken" as well. ASSESSMENT 31-year-old gentleman status post exploratory laparotomy with creation of end colostomy and mucous fistula secondary to perforated metastatic rectal cancer. Overall patient is doing well. PLAN Will go ahead today and switch to some p.o. antibiotics as recommended previously by Infectious Disease. Will keep him on antifungals/Diflucan. Will DC PPN/TPN when current bag is finished. Will repeat CT scan tomorrow. Would not recommend removing drains until we have documentation that this abscess within the pelvis containing the drain has improved or resolved. Patient may be able to be discharged tomorrow. Will otherwise continue with current care. Lab obtained earlier today was reviewed as well. DAVE
[2017-08-28] MEDS: MIRTAZAPINE 15 MG TABLET PO SCH (20:00)
[2017-08-28] MEDS: MULTI-VIT + MINERAL (Opti-gen) TABLET PO SCH (20:00)
[2017-08-29] MEDS: ACETAMINOPHEN 650 MG/20.3 ML SOLUTION PO PRN (00:43)
[2017-08-29] MEDS ORDERED: PANTOPRAZOLE 20 MG TABLET PO SCH (06:30)
[2017-08-29] MEDS ORDERED: IBUPROFEN 600 MG TABLET PO PRN (07:24)
[2017-08-29] MEDS ORDERED: SALINE FLUSH 10ml SYRINGE ONE (07:28)
[2017-08-29] MEDS ORDERED: IOHEXOL 300mg/ml 100ml INJECTION ONE (07:28)
--- NOTE | 2017-08-29 08:23 | General Surgery Progress Note ---
Subjective Narrative: States he slept well last night, except felt like he "broke a fever" during the night. T-Max 101.6 around midnight, 100.1 this am. Denies nausea, headache, chills. Eating regular diet, voiding without difficulty. Had a good teaching session regarding colostomy appliance and management yesterday with Rosalinda. He seems reassured regarding ostomy management. Currently drinking contrast for scheduled CT abd/pelvis. - Vital Signs Last Vital Signs Temp 100.2 F 08/29/17 08:00 Pulse 126 H 08/29/17 08:00 Resp 18 08/29/17 08:00 BP 138/78 08/29/17 08:00 Pulse Ox 94 08/29/17 08:00 - Laboratory Result Diagrams: 08/28/17 12:26 08/28/17 12:26 - Abnormal Exam Cardiovascular: other (tachycardic 120's) - Normal Exam Abdominal: BS normo active x4, soft, appropriately tender (midline and mostly at drain sites), incision(s) (CDI, brit removed yesterday, no erythema) Psychiatric: normal affect Assessment and Plan (1) Perforated sigmoid colon Current Visit: Yes Status: Acute (2) Status post colostomy Current Visit: Yes Status: Acute (3) Acute blood loss anemia Current Visit: Yes Status: Acute (4) Colon obstruction Current Visit: Yes Status: Acute (5) Colorectal cancer Current Visit: Yes Status: Acute Plan: T-Max 101.6 around midnight, 100.1 this am. WBC 12.0 (11.9 yesterday) HGB remains 8.0 Denies nausea, headache, chills. Eating regular diet, voiding without difficulty. Currently drinking contrast for scheduled CT abd/pelvis. Await results. Will follow up with Yvonne in 2 weeks, get a repeat CT in about 2 weeks. He is to call if concerns arise sooner. , mother and aunt are nurses, aunt Cindi was present for colostomy change/ teaching with desire to be helpful to Alexis when he transitions to home. Augmentin and Diflucan 2 weeks. Hospital Course Summary Disclaimer: The visit summary below is not to be considered part of the above Progress Note.
--- NOTE | 2017-08-29 08:47 | CT Scan Report ---
Indication: F/U itra-abd abscesses PROCEDURE: CT abdomen pelvis w con: Encounter: Initial Comparison: August 21, 2017 Technique: Axial CT images were performed through the abdomen and pelvis after the administration of intravenous contrast. Coronal and sagittal two-dimensional reformats. Automated Exposure Control and Iterative Reconstruction dose reducing techniques were utilized. Contrast: Omnipaque 300 100 mL Findings: 7 mm right middle lobe pulmonary nodule. Atelectasis in the lower lobes, right greater than left. Numerous large hepatic metastatic lesions are again seen scattered throughout the enlarged liver. No bile duct dilatation. The gallbladder is unremarkable. The spleen is enlarged. The pancreas and right adrenal gland are normal. Stable left adrenal mass. Kidneys are within normal limits. Prior dilated small bowel loops have resolved since the prior study. Surgical drain remains in the right lower quadrant extending into the left pelvis. There is also a left-sided drain extending into the pelvis in the area of rim enhancing abscess. The foci of gas have decreased within this abscess which has also decreased in size, now measuring 3.7 x 3.2 x 5.1 cm in diameter compared to 5.3 x 4.7 x 6 cm previously. Bladder appears normal. Irregular soft tissue and mass in the left rectum with metastatic soft tissue implants in the left lower pelvis. The prior inflammation of the distal sigmoid colon has improved with mild wall thickening remaining. No evidence of acute obstruction. Diverting colostomy again seen in the left lower quadrant. Moderate stool colon. No new fluid collection or abscess seen. Residual edema in the left anterior pelvic mesenteric fat. Subcutaneous edema has improved. Bone windows are stable in appearance. Impression: 1. Interval resolution of the prior small bowel dilatation. No evidence of acute obstruction currently. 2. Decreasing size of the left pelvic abscess with drains in place. 3. Rectal carcinoma with local metastases along with hepatic and pulmonary metastases. .
[2017-08-29] MEDS: ENOXAPARIN 40 MG/0.4 ML INJECTION SQ SCH (09:01)
[2017-08-29] MEDS: AMOX/CLAV 875 MG/125 MG TABLET PO SCH (09:01)
[2017-08-29] MEDS: FLUCONAZOLE 100 MG TABLET PO SCH (09:01)
[2017-08-29] MEDS: MULTI-VIT + MINERAL (Opti-gen) TABLET PO SCH (09:01)
[2017-08-29 12:03] VITALS: BP 137/71; PULSE 128; RESP 14; TEMP 99.4; O2SAT 96
--- NOTE | 2017-08-29 12:18 | Discharge Summary ---
Discharge Information Date of admission: 08/11/17 01:53 Anticipated date of discharge: 08/29/17 Attending Physician: Larry Jones DO Primary care physician: Larry Jones DO Consults: 08/11/17 16:53 Physician Consult [CONS] Routine Consulting Provider: Gabriel Russell Reason For Exam: Acute abdominal pain, colon CA Ordering Provider has Notified Waterproof Bag Sewer: Yes 08/12/17 20:28 Physician Consult [CONS] Routine Consulting Provider: Danika Marcum Reason For Exam: sepsis Ordering Provider has Notified Waterproof Bag Sewer: No Comment: notify in the morning 08/1208/13/17 09:59 [facility] Consult [CONS] Routine Reason for consultation: colostomy appliance fitting and management - Discharge Diagnosis (1) Abdominal pain Status: Acute (2) Anemia Status: Chronic (3) Colorectal cancer Status: Acute (4) Weight loss, unintentional Status: Acute (5) Acute blood loss anemia Status: Acute (6) Perforated sigmoid colon Status: Acute (7) Status post colostomy Status: Acute (8) Protein-calorie malnutrition, severe Status: Chronic (9) Hypophosphatemia Status: Resolved (10) Hypokalemia Status: Resolved - Procedures Procedures: diverting colostomy with mucous fistula - Laboratory Labs: 08/28/17 12:26 08/28/17 12:26 - Microbiology Microbiology 08/12/17 17:18 Peritoneum Gram Stain - Final 08/12/17 17:18 Peritoneum Surgical Culture - Final Group G Streptococcus Escherichia coli Anaerobic Gram-Negative Robert History of Present Illness HPI: This is a 31 y/o male who was recently diagnosed with rectal carcinoma. He is discovered to have tumor 10 cm from anal verge and extends 28 cm into the distal colon. The patient underwent his first round of chemotherapy this past Friday. He had his infusport placed last week as well. The pateint has been experiencing intermittent fevers low grade for the past at least week. At the time of his cath placement he was placed on Levaquin for a possible UTI. This past he has had increased abdomen cramping with frequent mostly diarrheal stools. He continues with low temperatures and chills. The patient presents tonight because of the increased pain. In the ED the patient had a AAS that did not demonstrate free air. His labs demonstrated an expected hypokalemia and ongoing anemia. (hg down from 8.2 to 7.5). Because of the worsening pain and ongoing anemia it was recommended to admit the pateint for further treatment. The pateint had a PET scan done recently with results pending. Hospital Course This is a general summary of the patient's hospital course. For more details refer to the complete medical record. Time spent with patient: discharge greater than 30 minutes Discharge Plan - Med Rec/Dispo Referrals/Follow Up: Gabriel Russell MD [Physician] - 09/12/17 2:00 pm Larry Jones DO [Family Provider] - Prescriptions: New Fluconazole [Diflucan 100 mg Tablet] 400 mg PO DAILY 14 Days #14 tab Hydrocodone/APAP 5/325 [Lynndyl 5/325] 1 tab PO Q6H PRN #30 tab PRN Reason: Pain Ibuprofen [Motrin] 600 mg PO Q6H PRN tab PRN Reason: Pain MULTI-VIT + MINERAL (Opti-gen) [Vision] 1 tab PO BID tab Simethicone [Phazyme] 125 mg PO Q6HR PRN #30 cap PRN Reason: Gas Amoxicillin/Potassium Clav [Amox-Clav 875-125 mg Tablet] 875 mg PO Q12HR 14 Days #24 tab Continue Hydrocodone/APAP 5/325 [Lynndyl 5/325] 2 tab PO Q4HR PRN #35 tab PRN Reason: Pain Discontinued Levofloxacin [Levaquin] 500 mg PO HS #5 tab - Disposition 01 Discharged Home, Self-Care - Dismissal Complete Discharge Instructions are:: Complete
--- NOTE | 2017-08-29 14:22 | Progress Note ---
DATE 08/29/2017 FINDINGS Alexis was without complaints today. He states he is feeling slightly more tired , however. OBJECTIVE VITALS: T-max 101.6. He remains slightly tachycardic. Normotensive. ABDOMEN: Soft, nontender. LABORATORY/RADIOGRAPHIC EVALUATION White count remains stable at 12,000. Hemoglobin stable at 8.0. BMP without marked abnormalities. CT scan was obtained today that did reveal decreasing inflammation of the distal sigmoid colon region. Abscess within pelvis is getting smaller. Drain remains to be within fluid collection/abscess. ASSESSMENT 31-year-old gentleman status post exploratory laparotomy with creation of end colostomy and mucous fistula secondary to perforated metastatic rectal cancer. Patient progressing. PLAN I do believe the patient could be discharged to home. Will DC to home on two weeks of additional antibiotics of Augmentin and oral Diflucan. Will have the patient see me in office in two weeks. Will plan on repeating CT scan at two- week interval. Will leave drains in at this time until we have better documentation that this abscess/fluid collection has completely resolved within the pelvis. I do believe that his intermittent fever is the result of the significant tumor burden/cancer that is present within his liver and not that of an underlying infectious etiology. MTDD
--- NOTE | 2017-08-29 14:23 | Wound Care Progress Note ---
Wound Center Progress Note: Pt seen for continuing ostomy education. Pt will be discharging later this afternoon. Pt resting in bed watching TV, parents at bedside. Pt reports he is having abdominal pain, pain and tenderness with ostomy appliance change. Pt states his ostomy pouching system has been leaking and the nurses changed the appliance last night. Stoma: retracted, scant serosanguineous drainage, soft brown stool, sutures visible. Peristomal skin: denuded, pink. Placed a convex wafer, barrier ring, 2 pc ostomy appliance, and ostomy belt. Crusting technique used to denuded area. Deodorizer/lubricant placed inside pouch, pt educated on how to use this product. [place] will send pt additional supplies including the convex wafers. Education given concerning: importance of wearing ostomy belt, use of convexity, and wafer/pouch wear times. Pt states "I just hope this is reversible, I want to get my life back." Contact information given to pt and family to reach out to [facility] [place] with any questions or concerns. All questions answered.
== END 2017-08-29 16:12 | disposition home or self-care (01) | DRG 329 ==
LOC: ED 23:38 → MED 08-11 01:53 → CCU 08-12 20:06 → SRG 08-26 12:45
PROVIDERS: ADMIT Emergency Medicine; ATTEND Internal Medicine